=== PATIENT | female | born 1935 | race Caucasian/White ===

== ENCOUNTER 2017-10-08 16:49 | Inpatient (IN) | payer MEDICARE ==
--- OUTSIDE RECORDS SUMMARY | 2017-10-08 17:09 | XMS REPORT ---
:1935 External Reference #:[id number] Author Organization [facility] Address [address] [place] [address] Phone [phone] Care Team Providers Name Role Phone Liz Rollins M.D. Primary Care Physician Unavailable Payers Type Date Identification Numbers Payment Provider Subscriber Commercial Effective: Policy Number: [id number] Selvin Faulkner 2007 Expires: 2009 Group Number: [id number] [address] Group Name: [employer] [address] PayID: [id number] Medigap Part B Effective: 2009 Policy Number: [id number] Selvin Faulkner Expires: 2010 Group Name: [employer] [address] PayID: [id number] [place] [address] Commercial Effective: 2014 Policy Number: [employer] Alana Faulkner [id number] PayID: [id number] [address] [place] [address] Problems Date Description Provider Status Onset: 11/30/2015 Osteoporosis Tiburcio Rahman M.D. 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 Reaction- Also Not Tolerant Of Percocet, Darvocet,Sukhdeep 05/25/2012 Sulfa eye drops caused active severe pain redness, swelling, contact derm Medications Medication Date Status Form Strength Qnty SIG Indications Ordering Provider Orthotics 10/07 Active 1pair use as Liz directed P. bilaterally- Blegen, dx- pes Robb.DKate planus, pain in feet b Compression 10/07 Active 1Pair thigh high- I83.819 Liz Socks for varicose P. veins Milton Rollins Doxycycline 09/18 Active Capsules 100mg 14cap 1 PO bid X 1 Liz Hyclate s more Week For P. Lyme Disease Blegen, as Directed MAsya Tramadol HCL 09/18 Active Tablets 50mg 10tab take 1/2-1 s tablet up to P. twice per day Blegen, as needed for M.D. severe pain, can cause drowsiness Walker 10/15 Active 1unit walker with M25.561 Liz s wheels and P. seat- severe Blegen, osteoarthriti M.DKate s, knee pain Aspirin 08/21 Active Chewtabs 81mg 1 by mouth every day Georgie Rollins M.D. Vitamin D-3 05/11 Active Capsules 1000Unit decrease to 1000 Iu per P. day Milton Rollins Nutritional 05/11 Active powder Liz Georgie Rollins M.D. Ibandronate Active Tablets 150mg 1 by mouth Lacho Desai Sodium /0000 every month as directed for osteoporosis- do not eat or drink or lie down for 60 minutes after taking Ciprofloxacin 11/18 Hx Tablets 250mg 10tab 1 by mouth 599.0 [place] HCL s twice a day [place] - for 5 days III, 03/04 for uti MICROFILM OPERATOR-C Alendronate 10/15 Hx Tablets 70mg 4tabs take one Liz Sodium tablet by P. - mouth once a Blegen, 10/15 week on empty M.D. /2016 stomach do not lie down or eat or take meds for -60 min Gabapentin 09/27 Hx Capsules 100mg 30cap take 1 to 3 G25.81 s capsules by P. - mouth at Blegen, 03/05 bedtime as .D. needed for pain and restless legs Zostavax 09/27 Hx Solution 40035Kas/ 1unit shingles Z00.01 Rec 0.65ML s vaccine as P. - directed Blegen, 03/04 M.D. Tramadol HCL 04/15 Hx Tablets 50mg 20tab take 1/2-1 Shawnt s tablet up to RKate Young, - twice per day MICROFILM OPERATOR-C 03/05 as needed for /2016 severe pain, can cause drowsiness Lidocaine 04/13 Hx Patches 5% 1unit apply patch s to neck for P. - pain as Blegen, 09/27 directed, august.D. use up to every 12 hours Tizanidine HCL 04/12 Hx Tablets 2mg 14tab 1 PO QHS prn s Muscle Spasm P. - Blegen, 04/15.D. Aspirin 03/16 Hx Tablets 325mg 1 PO qd ( Started After P. - CVA) Blegen, 08/21 M.D. Ciprofloxacin 11/04 Hx Tablets 250mg 10tab 1 by mouth 599.0 [facility] s twice a day P. - for 5 days Blegen, 03/09 for uti M.D. Cipro 05/16 Hx Tablets 250mg 10tab one by mouth s twice a day x P. - 5 days Blegen, 05/30 M.D. Compression 05/11 Hx 15-30mm 2Pair for varicose 729.5 Liz Stockings- Thigh /2014 HG s veings P. High - Blegen, 09/27 M.D. Fish Oil 05/11 Hx Capsules 1000mg 1-2 by mouth every day P. - Blegen, 03/28 M.D. /2014 Juice Plus 05/11 Hx Capsule fruit cap in am/ veggie P. - cap in pm Blegen, 10/15 M.D. Cyclobenzaprine 10/26 Hx Tablets 5mg 30tab 1 by mouth 724.5 Delia HCL s three times a Maribell, - day for MICROFILM OPERATOR-C 05/11 muscle spasm, may cause drowsiness Hydrocodone-Acet 10/26 Hx Tablets 5-325mg 10ten 1 by mouth q4 724.5 Delia aminophen - 6 hours as Maribell, - needed MICROFILM OPERATOR-C 05/11 Sulfacetamide 05/12 Hx Solution 10% 1bott 2 gtts both 372.03 Shawnti Sodium le eyes 4 times R. Storm, - daily for 5 MICROFILM OPERATOR-C Hydrocodone/Acet 03/19 Hx Tablets 5-325mg 15fif 1 po q 6 hrs Delia aminophen teen prn pain Maribell, - MICROFILM OPERATOR-C 05/11 Tramadol HCL 03/08 Hx Tablets 50mg 30thi 1 po q4-6hr Shawnti rty prn severe R. Storm, - pain MICROFILM OPERATOR-C 05/11 Nystatin/Triamci 07/29 Hx Cream 129414-4. 30gm apply to rash 112.9 Delia nolone 1Unit/GM- on chest bid Maribell, - % for up to 3 MICROFILM OPERATOR-C Quad Cane 09/21 Hx Use as Liz Directed For P. - Back And Leg Blegen, 01/09 Pain- DX- M.D. 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 - Back And Leg Blegen, 01/09 Pain- DX- M.D. 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 /2009 Physical Therapy 08/26 Hx Eval And Liz Treat Low P. 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 10/21 Darvocet-N 50 03/01 Hx Tablets 50-325mg 30tab 1 po q 6 s hours prn P. - severe pain Blegen, 08/16 M.D. Cipro 09/08 Hx Tablets 250mg 20tab one po bid x s 10 days P. - Blegen, 03/03 M.D. Cipro 05/07 Hx Tablets 250mg 6tabs 1 pill po bid 599.0 Shawnti /2008 for 3 days Meggan Young, - for urine MICROFILM OPERATOR-C 08/18 infection Ciprofloxacin 10/05 Hx Tablets 250mg 20tab one po bid 599.0 Shawnti HCL s for 10 days Meggan Young, - for infection MICROFILM OPERATOR-C 03/29 Asmanex 30 04/22 Hx Aerosol 220mcg/In 1unit 1 puff qd x 2 Liz Metered Doses /2007 h s weeks - up to P. - 4 weeks- Blegen, 08/16 rinse mouth M.D. after Levaquin 03/14 Hx Tablets 250mg 7tabs One PO qd X 7 Days P. - Blegen, 10/05 M.D. Zithromax Z-David 03/12 Hx Tablets 250mg 6tabs two po qd today and P. - then one po Blegen, 03/14 qd for 4 days M.D. /2006 Erythromycin 03/12 Hx Ointment 0.5% 1Tube apply tid x 7 Ophthalmic days to P. Ointment - affected eye Blegen, 10/05 M.D. Xanax 03/05 Hx Tablets 0.25mg 10tab one-half to s one po qhs P. - prn restless Blegen, 08/16 legs, can M.D. take up to two at bedtime if needed Orthotics 10/30 Hx Pair 1unit evaluate for s orthotics for P. - foot pain/ Blegen, 01/09 arthritis M.D. /2009 Entex LA 08/03 Hx Tablets 600mg;30 30tab 1 PO bid 465.9 Tiburcio /2004 mg s Rahman, - M.D. 11/01 Ultram 09/21 Hx Tablets 50mg 20tab One To Two PO s bid prn P. - Severe Pain Blegen, 01/09 M.D. /2009 Percocet 09/16 Hx Tablets 5/325 mg 30tab 1/2 To One s QHS prn Pain, P. - Up To Q 6 HRS Blegen, 09/21 prn M.D. Fosamax 12/18 Hx Tablets 70mg 4tabs One Q Week On Empty P. - Stomach, DO Blegen, 03/02 Not Lay M.D. /2008 Down After Taking Cipro 10/30 Hx Tablets 250mg 20tab One bid X10 s Days P. - Blegen, 06/17 M.D. /2002 Fluocinonide 06/17 Hx 15Gra Use Twice m Daily For P. - Rash For 1-2 Blegen, 08/16 Weeks M.D. /2011 Vioxx 06/17 Hx Tablets 25mg 30tab One qd 715.90 s P. - Blegen, 02/27 M.D. /2005 715.00 Reclast - Hx Solution 5mg/100ML once yearly dx Unknown 09/16/2017 osteoporosis m81.1 Forteo - Hx Solution 600mcg/2.4ML Inject 20 mcg SQ M81.0 Lacho Desai MD 09/16/2017 Once Per Day For Osteoporosis Immunizations CPT Code Status Date Vaccine Lot # [id number] Given 01/16/2017 Influenza Virus Vaccine, Quadrivalent, 3 Yr > Quad, Preserv Free 20723 Given 03/05/2016 Influenza Vaccine High Dose PF [id number] 75697 Given 09/28/2015 Prevnar-13 Pneumococcal Conjugate Vaccine [id number] 33657 Given 03/17/2010 Influenza Vaccine-Preservative Free 3 Yrs And [id number] Above 56362 Given 11/02/2009 DT (Adult) [id number] 00243 Given 02/26/2006 Influenza Virus Vaccine, 3 Yrs And Above [id number] 02829 Given 03/05/2005 Influenza Virus Vaccine, 3 Yrs And Above [id number] 73980 Given 03/01/2004 Influenza Virus Vaccine, 3 Yrs And Above 42141 Given 03/30/2003 Influenza Virus Vaccine, 3 Yrs And Above 94562 Given 03/30/2003 Pneumovax 23 (PPSV23) 65+ years or high risk 2 to 64 year old 75867 Given 02/17/2002 Influenza Virus Vaccine, 3 Yrs And Above 71793 Given 02/06/2001 Influenza Virus Vaccine, 3 Yrs And Above 26250 Given 02/01/1999 Influenza Virus Vaccine, 3 Yrs And Above 39392 Given 01/28/1997 Pneumovax 23 (PPSV23) 65+ years or high risk 2 to 64 year old 32148 Given 01/28/1997 Influenza Virus Vaccine 62836 Given 09/06/1994 DT (Adult) 61241 Given 05/30/1992 DT (Adult) Vital Signs Date Vital Result Comment 10/07/2017 Weight 136.00 lb Weight in kg's 61.690 BP Systolic 120 mmHg BP Diastolic 70 mmHg Heart Rate 80 /min Body Temperature 97.0 F Respiratory Rate 16 /min Height 63.5 inches 5'3.50" BMI (Body Mass Index) 23.7 kg/m2 O2 % BldC Oximetry 97 % 09/16/2017 Weight 138.00 lb Weight in kg's 62.597 BP Systolic 123 mmHg BP Diastolic 77 mmHg Heart Rate 84 /min Body Temperature 98.2 F O2 % BldC Oximetry 95 % 03/05/2017 Weight 135.00 lb Weight in kg's 61.236 BP Systolic 110 mmHg BP Diastolic 72 mmHg Heart Rate 85 /min Body Temperature 97.7 F O2 % BldC Oximetry 98 % 10/15/2016 Weight 138.00 lb Weight in kg's 62.597 BP Systolic 112 mmHg BP Diastolic 76 mmHg Heart Rate 71 /min Body Temperature 96.8 F Respiratory Rate 16 /min O2 % BldC Oximetry 98 % 03/05/2016 Weight 134.00 lb Weight in kg's 60.782 BP Systolic 120 mmHg BP Diastolic 74 mmHg Heart Rate 76 /min Body Temperature 97.6 F Respiratory Rate 12 /min 11/30/2015 Weight 131.00 lb Weight in kg's 59.422 BP Systolic 100 mmHg BP Diastolic 70 mmHg Heart Rate 60 /min Body Temperature 97.8 F Respiratory Rate 20 /min 09/28/2015 Weight 131.00 lb Weight in kg's 59.422 BP Systolic 118 mmHg BP Diastolic 68 mmHg Heart Rate 56 /min Body Temperature 96.9 F 2015 Weight 133.00 lb Weight in kg's 60.329 BP Systolic 112 mmHg BP Diastolic 56 mmHg Heart Rate 60 /min Body Temperature 98.3 F 04/12/2015 Weight 132.00 lb Weight in kg's 59.875 BP Systolic 116 mmHg BP Diastolic 66 mmHg Heart Rate 78 /min O2 % BldC Oximetry 98 % 03/28/2015 Weight 132.00 lb Weight in kg's 59.875 BP Systolic 102 mmHg BP Diastolic 64 mmHg Heart Rate 66 /min 03/16/2015 Weight 132.00 lb Weight in kg's 59.875 BP Systolic 120 mmHg BP Diastolic 70 mmHg Heart Rate 72 /min 11/04/2014 Weight 128.00 lb Weight in kg's 58.061 BP Systolic 100 mmHg BP Diastolic 56 mmHg Heart Rate 76 /min Body Temperature 99.4 F 05/11/2014 Weight 125.00 lb Weight in kg's 56.700 BP Systolic 100 mmHg BP Diastolic 60 mmHg Heart Rate 72 /min Height 63.5 inches 5'3.50" BMI (Body Mass Index) 21.8 kg/m2 10/26/2013 Weight 126.00 lb Weight in kg's 57.154 BP Systolic 120 mmHg BP Diastolic 70 mmHg Heart Rate 72 /min Body Temperature 97.5 F 05/14/2012 Weight 133.00 lb Weight in kg's 60.329 BP Systolic 112 mmHg BP Diastolic 68 mmHg Heart Rate 74 /min 05/12/2012 Weight 133.00 lb Weight in kg's 60.329 BP Systolic 120 mmHg BP Diastolic 64 mmHg Heart Rate 80 /min Body Temperature 98.3 F 03/07/2012 Weight 134.00 lb Weight in kg's 60.782 BP Systolic 104 mmHg BP Diastolic 68 mmHg Heart Rate 60 /min 08/17/2011 Weight 144.00 lb Weight in kg's 65.318 BP Systolic 100 mmHg BP Diastolic 60 mmHg Heart Rate 92 /min Height 64.5 inches 5'4.50" BMI (Body Mass Index) 24.3 kg/m2 07/30/2011 Weight 146.00 lb Weight in kg's 66.226 BP Systolic 100 mmHg BP Diastolic 70 mmHg Heart Rate 72 /min 05/25/2010 Weight 155.00 lb Weight in kg's 70.308 BP Systolic 116 mmHg BP Diastolic 64 mmHg Heart Rate 76 /min 11/02/2009 Weight 151.00 lb Weight in kg's 68.494 BP Systolic 122 mmHg BP Diastolic 70 mmHg Heart Rate 68 /min Height 64.25 inches 5'4.25" BMI (Body Mass Index) 25.7 kg/m2 09/19/2009 Weight 155.00 lb Weight in kg's 70.308 BP Systolic 130 mmHg BP Diastolic 78 mmHg Heart Rate 68 /min Body Temperature 97.1 F 08/02/2009 Weight 157.00 lb Weight in kg's 71.215 BP Systolic 132 mmHg BP Diastolic 70 mmHg Heart Rate 68 /min 07/30/2009 Weight 159.00 lb Weight in kg's 72.122 BP Systolic 140 mmHg BP Diastolic 78 mmHg Heart Rate 68 /min 06/07/2009 Weight 159.00 lb Weight in kg's 72.122 BP Systolic 120 mmHg BP Diastolic 70 mmHg Heart Rate 64 /min 03/01/2009 Weight 158.00 lb Weight in kg's 71.669 BP Systolic 110 mmHg BP Diastolic 76 mmHg Heart Rate 80 /min Body Temperature 98.1 F 09/08/2008 Weight 168.00 lb Weight in kg's 76.205 BP Systolic 120 mmHg BP Diastolic 78 mmHg Heart Rate 68 /min Body Temperature 96.8 F Respiratory Rate 18 /min 08/13/2008 Weight 187.00 lb Weight in kg's 84.823 BP Systolic 130 mmHg BP Diastolic 85 mmHg Heart Rate 64 /min Body Temperature 98.0 F 05/07/2008 Weight 167.00 lb Weight in kg's 75.751 BP Systolic 120 mmHg BP Diastolic 74 mmHg Heart Rate 72 /min Body Temperature 96.5 F oral 03/19/2008 Weight 166.00 lb Weight in kg's 75.298 BP Systolic 114 mmHg BP Diastolic 72 mmHg Heart Rate 68 /min Body Temperature 97.0 F Height 64.75 inches 5'4.75" BMI (Body Mass Index) 27.8 kg/m2 11/03/2007 Weight 167.00 lb Weight in kg's 75.751 BP Systolic 122 mmHg BP Diastolic 70 mmHg Heart Rate 62 /min Height 64.75 inches 5'4.75" BMI (Body Mass Index) 28.0 kg/m2 10/06/2007 Weight 168.00 lb Weight in kg's 76.205 BP Systolic 106 mmHg BP Diastolic 68 mmHg Heart Rate 72 /min Height 64.75 inches 5'4.75" BMI (Body Mass Index) 28.2 kg/m2 03/12/2007 Weight 165.00 lb Weight in kg's 74.844 BP Systolic 114 mmHg BP Diastolic 74 mmHg Heart Rate 76 /min Height 64.75 inches 5'4.75" BMI (Body Mass Index) 27.7 kg/m2 02/27/2006 Weight 165.00 lb Weight in kg's 74.844 BP Systolic 112 mmHg BP Diastolic 60 mmHg Body Temperature 98.0 F 06/29/2005 Weight 162.00 lb Weight in kg's 73.483 BP Systolic 130 mmHg BP Diastolic 80 mmHg Heart Rate 70 /min 03/05/2005 Weight 159.00 lb Weight in kg's 72.122 BP Systolic 130 mmHg BP Diastolic 70 mmHg Body Temperature 98.0 F 12/27/2004 Weight 160.00 lb Weight in kg's 72.576 BP Systolic 130 mmHg BP Diastolic 74 mmHg Heart Rate 60 /min Body Temperature 96.4 F Respiratory Rate 16 /min 10/16/2004 Weight 166.00 lb Weight in kg's 75.298 BP Systolic 138 mmHg BP Diastolic 80 mmHg Heart Rate 76 /min 08/03/2004 Weight 169.00 lb Weight in kg's 76.658 BP Systolic 140 mmHg BP Diastolic 100 mmHg Body Temperature 99.0 F 09/16/2002 Weight 188.00 lb Weight in kg's 85.277 BP Systolic 116 mmHg BP Diastolic 78 mmHg Heart Rate 76 /min Body Temperature 97.6 F 02/18/2002 Weight 186.50 lb Weight in kg's 84.6 BP Systolic 130 mmHg BP Diastolic 74 mmHg 12/18/2001 BP Systolic 112 mmHg BP Diastolic 70 mmHg 08/25/2001 Weight 195.00 lb BP Systolic 130 mmHg BP Diastolic 80 mmHg Heart Rate 76 /min Respiratory Rate 18 /min Height 65 inches BMI (Body Mass Index) 32.4 kg/m2 Results Test Date Test Result H/L Range Note CBC Auto Diff 10/07/2017 White Blood Count 4.3 10^3/uL 3.5-10.8 Red Blood Count 3.77 10^6/uL Low 4.00-5.40 Hemoglobin 11.7 g/dL Low 12.0-16.0 Hematocrit 35 % 35-47 Mean Corpuscular Volume 94 fL 80-97 Mean Corpuscular Hemoglobin 31 pg 27-31 Mean Corpuscular HGB Conc 33 g/dL 31-36 Red Cell Distribution Width 14 % 10.5-15 Platelet Count 198 10^3/uL 150-450 Mean Platelet Volume 10.8 um3 High 7.4-10.4 Abs Neutrophils 2.0 10^3/uL 1.5-7.7 Abs Lymphocytes 1.8 10^3/uL 1.0-4.8 Abs Monocytes 0.4 10^3/uL 0-0.8 Abs Eosinophils 0.1 10^3/uL 0-0.6 Abs Basophils 0.1 10^3/uL 0-0.2 Abs Nucleated RBC 0 10^3/uL Granulocyte % 46.7 % 38-83 Lymphocyte % 41.2 % 25-47 Monocyte % 9.1 % High 0-7 Eosinophil % 1.8 % 0-6 Basophil % 1.2 % 0-2 Nucleated Red Blood Cells % 0.2 Comp Metabolic Panel 10/07/2017 Sodium 139 mmol/L 135-145 Potassium 4.3 mmol/L 3.5-5.0 Chloride 106 mmol/L 101-111 Co2 Carbon Dioxide 27 mmol/L 22-32 Anion Gap 6 mmol/L 2-11 Glucose 100 mg/dL 70-100 Blood Urea Nitrogen 17 mg/dL 6-24 Creatinine 0.89 mg/dL 0.51-0.95 BUN/Creatinine Ratio 19.1 8-20 Calcium 9.9 mg/dL 8.6-10.3 Total Protein 6.4 g/dL 6.4-8.9 Albumin 3.6 g/dL 3.2-5.2 Globulin 2.8 g/dL 2-4 Albumin/Globulin Ratio 1.3 1-3 Total Bilirubin 0.40 mg/dL 0.2-1.0 Alkaline Phosphatase 60 U/L 34-104 Alt 17 U/L 7-52 Ast 21 U/L 13-39 Egfr Non- 60.7 >60 Egfr 73.5 >60 1 Laboratory test finding 10/07/2017 Vitamin B12 600 pg/mL 180-914 2 Vitamin D Total 25(Oh) 53.4 ng/mL High 20-50 3 Lyme Western Blot 09/24/2017 Lyme Disease IgG Ab WB Positive Negative Lyme Disease IgG Bands Present See Comment kDa 4 Lyme Disease IgM Ab WB Positive Negative Lyme Disease IgM Bands Present p41,p23 kDa Lyme Disease Interpretation See Comment 5 Laboratory test finding 09/16/2017 Lyme Disease Serology Negative Negative 6 Comp Metabolic Panel 09/16/2017 Sodium 134 mmol/L Low 139-145 Potassium 4.3 mmol/L 3.5-5.0 Chloride 100 mmol/L Low 101-111 Co2 Carbon Dioxide 27 mmol/L 22-32 Anion Gap 7 mmol/L 2-11 Glucose 104 mg/dL High 70-100 Blood Urea Nitrogen 13 mg/dL 6-24 Creatinine 0.93 mg/dL 0.51-0.95 BUN/Creatinine Ratio 14.0 8-20 Calcium 9.5 mg/dL 8.6-10.3 Total Protein 6.8 g/dL 6.4-8.9 Albumin 3.9 g/dL 3.2-5.2 Globulin 2.9 g/dL 2-4 Albumin/Globulin Ratio 1.3 1-3 Total Bilirubin 0.40 mg/dL 0.2-1.0 Alkaline Phosphatase 67 U/L 34-104 Alt 47 U/L 7-52 Ast 65 U/L High 13-39 Egfr Non- 57.7 >60 Egfr 74.2 >60 7 CBC Auto Diff 09/16/2017 White Blood Count 2.7 10^3/uL Low 3.5-10.8 Red Blood Count 4.21 10^6/uL 4.00-5.40 Hemoglobin 13.0 g/dL 12.0-16.0 Hematocrit 40 % 35-47 Mean Corpuscular Volume 94 fL 80-97 Mean Corpuscular Hemoglobin 31 pg 27-31 Mean Corpuscular HGB Conc 33 g/dL 31-36 Red Cell Distribution Width 14 % 10.5-15 Platelet Count 148 10^3/uL Low 150-450 Mean Platelet Volume 10.2 um3 7.4-10.4 Abs Neutrophils 2.0 10^3/uL 1.5-7.7 Abs Lymphocytes 0.6 10^3/uL Low 1.0-4.8 Abs Monocytes 0.2 10^3/uL 0-0.8 Abs Eosinophils 0 10^3/uL 0-0.6 Abs Basophils 0 10^3/uL 0-0.2 Abs Nucleated RBC 0 10^3/uL Granulocyte % 72.1 % 38-83 Lymphocyte % 20.7 % Low 25-47 Monocyte % 6.2 % 0-7 Eosinophil % 0 % 0-6 Basophil % 1.0 % 0-2 Nucleated Red Blood Cells % 0.1 Laboratory test finding 09/16/2017 C Reactive Protein 37.20 mg/L High < 5.00 8 Connective Tissue Panel 09/16/2017 Anti-Nuclear Antibody 0.4 U 9 Cyclic Citrullinated Peptide <15.6 U 10 Interpretation See Comment 11 Tick-Borne Panel PCR Blood 09/16/2017 Babesia microti PCR Negative Negative Babesia ducani Negative Negative Babesia divergens/Mo-1 Negative Negative 12 Anaplasma phagocytophilum Negative Negative Ehrlichia chaffeensis Negative Negative Ehrlichia ewingii/canis Negative Negative Ehrlichia muris-like Negative Negative 13 B. miyamotoi PCR, B Negative Negative 14 Laboratory test finding 01/16/2017 Calcium 9.9 mg/dL 8.6-10.3 Vitamin D Total 25(Oh) 53.2 ng/mL High 20-50 Pthi 01/16/2017 Calcium (PTH Intact) 9.9 mg/dL 8.6-10.3 PTH Intact 6.0 pmol/L 1.3-9.3 Laboratory test finding 01/16/2017 Creatinine Random Urine 56.86 mg/dL Osteocalcin 26 ng/mL 9 - 42 15 Bone Alkaline Phosphatase, S 17 g/L 16 NTX (N-Telopeptide) Urine 01/16/2017 Urine Creatinine 49 mg/dL NTX 257 nmol/L Ur NTX-Telo 59 nmol/mmol 17 Laboratory test finding 09/28/2015 Vitamin B12 734 pg/mL 180-914 18 Vitamin D Total 25(Oh) 59.0 ng/mL High 30-50 19 Comp Metabolic Panel 09/28/2015 Sodium 137 mmol/L 133-145 Potassium 4.2 mmol/L 3.5-5.0 Chloride 101 mmol/L 101-111 Co2 Carbon Dioxide 30 mmol/L 22-32 Anion Gap 6 mmol/L 2-11 Glucose 70 mg/dL 70-100 Blood Urea Nitrogen 15 mg/dL 6-24 Creatinine 0.82 mg/dL 0.51-0.95 BUN/Creatinine Ratio 18.3 8-20 Calcium 9.9 mg/dL 8.6-10.3 Total Protein 7.3 g/dL 6.4-8.9 Albumin 4.2 g/dL 3.2-5.2 Globulin 3.1 g/dL 2-4 Albumin/Globulin Ratio 1.4 1-3 Total Bilirubin 0.60 mg/dL 0.2-1.0 Alkaline Phosphatase 113 U/L High 34-104 Alt 16 U/L 7-52 Ast 24 U/L 13-39 Egfr Non- 67.1 >60 Egfr 86.3 >60 20 Urine DIP 09/28/2015 Leukocytes + Neg Urine Nitrites neg Neg Urobilinogen neg Norm Total Protein, Urine neg Neg Urine pH 5 5-6 Urine Blood neg Neg Urine Ketones neg Neg Urine Bilirubin neg Neg Urine Glucose norm Norm CBC Auto Diff 2015 White Blood Count 5.8 10^3/uL 3.5-10.8 Red Blood Count 4.06 10^6/uL 4.0-5.4 Hemoglobin 12.5 g/dL 12.0-16.0 Hematocrit 39 % 35-47 Mean Corpuscular Volume 95 fL 80-97 Mean Corpuscular Hemoglobin 31 pg 27-31 Mean Corpuscular HGB Conc 32 g/dL 31-36 Red Cell Distribution Width 13 % 10.5-15 Platelet Count 202 10^3/uL 150-450 Mean Platelet Volume 11 um3 High 7.4-10.4 Abs Neutrophils 3.4 10^3/uL 1.5-7.7 Abs Lymphocytes 1.8 10^3/uL 1.0-4.8 Abs Monocytes 0.4 10^3/uL 0-0.8 Abs Eosinophils 0.1 10^3/uL 0-0.6 Abs Basophils 0 10^3/uL 0-0.2 Abs Nucleated RBC 0 10^3/uL Granulocyte % 58.5 % 38-83 Lymphocyte % 31.3 % 25-47 Monocyte % 7.7 % 1-9 Eosinophil % 1.8 % 0-6 Basophil % 0.7 % 0-2 Nucleated Red Blood Cells % 0 Lyme Western Blot 2015 Lyme Disease IgG Ab WB Negative Negative Lyme Disease IgG Bands Present p41, p39, p23, kDa Lyme Disease IgM Ab WB Negative Negative Lyme Disease IgM Bands Present No bands detecte <SEE NOTE> kDa 21 Lyme Disease Interpretation See Comment 22 Laboratory test finding 2015 Erythrocyte Sed Rate 16 mm/Hr 0-40 23 CBC Auto Diff 03/09/2015 White Blood Count 5.4 10^3/uL 4.8-10.8 Red Blood Count 3.89 10^6/uL Low 4.0-5.4 Hemoglobin 12.5 g/dL 12.0-16.0 Hematocrit 38 % 35-47 Mean Corpuscular Volume 98 fL High 80-97 Mean Corpuscular Hemoglobin 32 pg High 27-31 Mean Corpuscular HGB Conc 33 g/dL 31-36 Red Cell Distribution Width 13 % 10.5-15 Platelet Count 187 10^3/uL 150-450 Mean Platelet Volume 10 um3 7.4-10.4 Abs Neutrophils 2.9 10^3/uL 1.5-7.7 Abs Lymphocytes 1.8 10^3/uL 1.0-4.8 Abs Monocytes 0.5 10^3/uL 0-0.8 Abs Eosinophils 0.1 10^3/uL 0-0.6 Abs Basophils 0.1 10^3/uL 0-0.2 Abs Nucleated RBC 0 10^3/uL Granulocyte % 54.2 % 38-83 Lymphocyte % 33.8 % 25-47 Monocyte % 8.5 % 1-9 Eosinophil % 2.3 % 0-6 Basophil % 1.2 % 0-2 Nucleated Red Blood Cells % 0.1 Comp Metabolic Panel 03/09/2015 Sodium 138 mmol/L 133-145 Potassium 4.0 mmol/L 3.5-5.0 Chloride 105 mmol/L 101-111 Co2 Carbon Dioxide 29 mmol/L 22-32 Anion Gap 4 mmol/L 2-11 Glucose 92 mg/dL 70-100 Blood Urea Nitrogen 16 mg/dL 6-24 Creatinine 0.83 mg/dL 0.51-0.95 BUN/Creatinine Ratio 19.3 8-20 Calcium 10.0 mg/dL 8.6-10.3 Total Protein 7.3 g/dL 6.4-8.9 Albumin 4.0 g/dL 3.2-5.2 Globulin 3.3 g/dL 2-4 Albumin/Globulin Ratio 1.2 1-3 Total Bilirubin 0.50 mg/dL 0.2-1.0 Alkaline Phosphatase 74 U/L 34-104 Alt 15 U/L 7-52 Ast 22 U/L 13-39 Egfr Non- 66.3 >60 Egfr 85.3 >60 24 Laboratory test finding 03/09/2015 Lactic Acid 0.8 mmol/L 0.5-2.2 Inr/Protime 03/09/2015 Inr 0.91 0.89-1.11 Urinalysis Profile 03/09/2015 Urine Color Yellow Urine Appearance Clear Urine Specific [place] 1.008 Low 1.010-1.030 Urine pH 6.0 5-9 Urine Urobilinogen Negative Negative Urine Ketones Negative Negative Urine Protein Negative Negative Urine Leukocytes Negative Negative Urine Blood Negative Negative Urine Nitrite Negative Negative Urine Bilirubin Negative Negative Urine Glucose Negative Negative Laboratory test finding 03/09/2015 Point of Care Glucose 92 mg/dL 74-106 25 Urine DIP 11/08/2014 Specific [place] 1.015 1.01-1.02 Urine pH 5 5-6 Leukocytes TRACE Neg Urine Nitrites NEG Neg Total Protein, Urine NEG Neg Urine Glucose NORM Norm Urine Ketones NEG Neg Urobilinogen NORM Norm Urine Bilirubin NEG Neg Urine Blood TRACE Neg Laboratory test finding 11/08/2014 Urine Culture And SEE RESULT BELOW 26 Sensitivities Urinalysis Profile 11/04/2014 Urine Color Straw Urine Appearance Clear Urine Specific [place] 1.004 Low 1.010-1.030 Urine pH 7.0 5-9 Urine Urobilinogen Negative Negative Urine Ketones Negative Negative Urine Protein Negative Negative Urine Leukocytes Negative Negative Urine Blood Negative Negative Urine Nitrite Negative Negative Urine Bilirubin Negative Negative Urine Glucose Negative Negative Laboratory test 11/04/2014 Urine Culture And SEE RESULT 27 finding Sensitivities BELOW Urine DIP 11/04/2014 Specific [place] 1.005 Low 1.01-1.02 Urine pH 6 5-6 Leukocytes TRACE Neg Urine Nitrites NEG Neg Total Protein, Urine NORM Neg Urine Glucose NORM Norm Urine Ketones NEG Neg Urobilinogen NORM Norm Urine Bilirubin NEG Neg Urine Blood TRACE Neg Laboratory test finding 06/15/2014 Alp Bone Isoenzymes 20 g/L 28 N Telopeptide Serum 22.7 nMBCE 29 Protein Electrophoresis 06/15/2014 Total Protein(Pep) 7.3 g/dL 6.3 - 7.9 Albumin 3.6 g/dL 3.4-4.7 Alpha-1 Globulin 0.2 g/dL 0.1-0.3 Alpha-2 Globulin 1.1 g/dL 0.6-1.0 Beta Globulin 0.9 g/dL 0.7-1.2 Gamma Globulin 1.6 g/dL 0.6-1.6 Albumin/Globulin Ratio 0.95 Impression See Comment 30 Pthi 06/15/2014 PTH Intact 4.7 pmol/L 1.3-9.3 Calcium (PTH Intact) 10.2 mg/dL 8.6-10.3 Laboratory test finding 06/15/2014 Osteocalcin 34 ng/mL 9 - 42 31 Folate > 20.00 ng/mL >3.99 Urinalysis Profile 06/15/2014 Urine Color Straw Urine Appearance Clear Urine Specific [place] 1.005 Low 1.010-1.030 Urine pH 7.0 5-9 Urine Urobilinogen Negative Negative Urine Ketones Negative Negative Urine Protein Negative Negative Urine Leukocytes Negative Negative Urine Blood Negative Negative Urine Nitrite Negative Negative Urine Bilirubin Negative Negative Urine Glucose Negative Negative Laboratory test finding 05/11/2014 TSH (Thyroid Stimulating 2.34 IU/mL 0.34-5.60 Horm) Free T4 0.86 ng/mL 0.61-1.12 Vitamin D, 25 Hydroxy 05/11/2014 25-Hydroxy Vitamin D2 <4.0 ng/mL 25-Hydroxy Vitamin D3 31 ng/mL 25-Hydroxy Vitamin D Total 31 ng/mL 32 Comp Metabolic Panel 05/11/2014 Sodium 137 mmol/L 133-145 Potassium 3.9 mmol/L 3.5-5.0 Chloride 102 mmol/L 101-111 Co2 Carbon Dioxide 30 mmol/L 22-32 Anion Gap 5 mmol/L 2-11 Glucose 82 mg/dL 70-100 Blood Urea Nitrogen 15 mg/dL 6-24 Creatinine 0.77 mg/dL 0.51-0.95 BUN/Creatinine Ratio 19.5 8-20 Calcium 10.1 mg/dL 8.6-10.3 Total Protein 7.1 g/dL 6.4-8.9 Albumin 4.3 g/dL 3.2-5.2 Globulin 2.8 g/dL 2-4 Albumin/Globulin Ratio 1.5 1-3 Total Bilirubin 0.50 mg/dL 0.2-1.0 Alkaline Phosphatase 71 U/L 34-104 Alt 13 U/L 7-52 Ast 21 U/L 13-39 Egfr Non- 72.5 >60 Egfr 93.2 >60 33 CBC Auto Diff 05/11/2014 White Blood Count 6.2 10^3/uL 4.8-10.8 Red Blood Count 3.92 10^6/uL Low 4.0-5.4 Hemoglobin 12.7 g/dL 12.0-16.0 Hematocrit 39 % 35-47 Mean Corpuscular Volume 99 fL High 80-97 Mean Corpuscular Hemoglobin 32 pg High 27-31 Mean Corpuscular HGB Conc 33 g/dL 31-36 Red Cell Distribution Width 14 % 10.5-15 Platelet Count 196 10^3/uL 150-450 Mean Platelet Volume 11 um3 High 7.4-10.4 Abs Neutrophils 3.6 10^3/uL 1.5-7.7 Abs Lymphocytes 2.0 10^3/uL 1.0-4.8 Abs Monocytes 0.4 10^3/uL 0-0.8 Abs Eosinophils 0.1 10^3/uL 0-0.6 Abs Basophils 0.1 10^3/uL 0-0.2 Abs Nucleated RBC 0 10^3/uL Granulocyte % 58.8 % 38-83 Lymphocyte % 31.6 % 25-47 Monocyte % 7.2 % 1-9 Eosinophil % 1.3 % 0-6 Basophil % 1.1 % 0-2 Nucleated Red Blood Cells % 0 Laboratory test finding 05/11/2014 Vitamin B12 762 pg/mL 180-914 34 Urinalysis Profile 05/11/2014 Urine Color Yellow Urine Appearance Cloudy Urine Specific [place] 1.008 Low 1.010-1.030 Urine pH 6.0 5-9 Urine Urobilinogen Negative Negative Urine Ketones Negative Negative Urine Protein Negative Negative Urine Leukocytes 3+ Negative Urine Blood Negative Negative Urine Nitrite Negative Negative Urine Bilirubin Negative Negative Urine Glucose Negative Negative Urine White Blood Cell 3+(>20/hpf) Absent Urine Red Blood Cell Trace(0-2/hpf) Absent Urine Bacteria 3+ Absent Urine Squamous Epithelial Cell Present Absent Urine Culture And 05/11/2014 Urine Culture (SEE NOTE) 35 Sensitivities Urine DIP 05/11/2014 Specific [place] 1.010 1.01-1.02 Urine pH 6 5-6 Leukocytes ++ Neg Urine Nitrites neg Neg Total Protein, Urine neg Neg Urine Glucose norm Norm Urine Ketones neg Neg Urobilinogen norm Norm Urine Bilirubin neg Neg Urine Blood trace Neg Urine DIP 10/27/2013 Specific [place] 1.01 1.01-1.02 Urine pH 6 5-6 Leukocytes ++ Neg Urine Nitrites NEG Neg Total Protein, Urine NEG Neg Urine Glucose NORM Norm Urine Ketones NEG Neg Urobilinogen NORM Norm Urine Bilirubin NEG Neg Urine Blood NEG Neg Urine DIP 08/17/2011 Leukocytes + Neg Urine Nitrites neg Neg Urine pH 5 5-6 Total Protein, Urine neg Neg Urine Glucose norm Norm Urine Ketones neg Neg Urobilinogen norm Norm Urine Bilirubin neg Neg Urine Blood neg Neg Specific [place] n/a Low 1.01-1.02 CBC Auto Diff 08/10/2011 White Blood Count 5.7 CUMM 4.8-10.8 Red Cell Count 3.76 CUMM Low 4.2-5.4 Hemoglobin 12.4 g/dL 12.0-16.0 Hematocrit 36 % 35-47 Mean Corpuscular Volume 97 um3 79-97 Mean Corpuscular Hemoglob 33 pg High 27-31 Mean Corpuscular HGB Cone 34 g/dL 32-36 Redcell Distribution WDTH 13 % 10.5-15 Platelet Count 199 CUMM 150-450 Mean Platelet Volume 11.3 um3 High 7.4-10.4 Gran % 48.9 % 38-83 Lymph % 37.6 % 25-47 Mononuclear % 10.1 % High 1-9 Eosinophil % 2.6 % 0-6 Basophil % 0.8 % 0-2 Abs Lymphs 2.1 1.0-4.8 Abs Mononuclear 0.6 0-0.8 Absolute Neutrophil Count 2.8 1.5-7.7 Abs Eosinophils 0.2 0-0.6 Abs Basophils 0 0-0.2 Comp Metabolic Panel 08/10/2011 Sodium 137 mmol/L 135-145 Potassium 4.0 mmol/L 3.5-5.0 Chloride 105 mmol/L 101-111 Co2 (Carbon Dioxide) 30.0 mmol/L 22-32 Anion Gap 2.0 mmol/L 2-11 36 Glucose 85 mg/dL 70-100 BUN 13 mg/dL 6-24 Creatinine 1.0 mg/dL 0.50-1.40 One Over Creatinine 1.00 BUN/Creatinine Ratio 13.0 8-20 Calcium 9.8 mg/dL 8.1-9.9 Total Protein 6.4 GM/DL 6.2-8.1 Albumin 3.7 GM/DL 3.2-5.2 Globulin 2.7 GM/DL 2-4 Albumin/Globulin Ratio 1.4 1-3 Bilirubin Total 1.0 mg/dL 0.4-1.5 37 Alkaline Phosphatase 83 U/L 30-110 Alt (SGPT) 18 U/L 14-54 Ast (Sgot) 23 U/L 12-42 eGFR Non- 54.1 > 60 eGFR 69.5 > 60 38 Lipid Profile (Trig/Chol/HDL) 08/10/2011 Triglyceride 47 mg/dL 40-200 Cholesterol 189 mg/dL Less Than 200 39 High Density Lipoprotein 74 mg/dL High 40-60 40 Cholesterol/HDL Ratio 2.55 AVERAGE 1-4.44 Low Density Lipoprotein 106 mg/dL High Less Than 100 41 Vitamin D, 25 Hydroxy 11/02/2009 25-Hydroxy Vitamin D2 <4.0 ng/mL () 25-Hydroxy Vitamin D3 57 ng/mL () 25-Hydroxy Vitamin D Total 57 ng/mL () 42 Laboratory test finding 11/02/2009 Vitamin B12 511 pg/mL 180-914 Varicella Zoster Igg Positive Negative 43 Erythrocyte Sed Rate 18 MM/HR 0-40 Urine DIP 11/02/2009 Leukocytes NEG Neg Urine Nitrites NEG Neg Urine pH 5 5-6 Total Protein, Urine NEG Neg Urine Glucose NORM Norm Urine Ketones NEG Neg Urobilinogen NORM Norm Urine Bilirubin NEG Neg Urine Blood NEG Neg Specific [place] NA Low 1.01-1.02 Urine Culture & Sensitivi 09/27/2009 Urine Culture Sensitivi SN1 44 Urine DIP 09/27/2009 Leukocytes + Neg Urine Nitrites NEG Neg Urine pH 5 5-6 Total Protein, Urine NEG Neg Urine Glucose NORM Norm Urine Ketones NEG Neg Urobilinogen NORM Norm Urine Bilirubin NEG Neg Urine Blood NEG Neg Specific [place] NA Low 1.01-1.02 Urine Culture & Sensitivi 09/19/2009 Urine Culture ESCHERICHIA COLI 45 Sensitivi Urine Culture 09/19/2009 Ampicillin <=2 Sensitivities Amikacin <=2 Ciprofloxacin <=0.25 Ceftriaxone <=1 Cefazolin <=4 Nitrofurantoin 32 Gentamicin <=1 Imipenem <=1 Levofloxacin <=0.12 Trimeth-Sulfa <=20 Ceftazidime <=1 Tigecycline <=0.5 Piperacillin/Tazobactam <=4 Urine DIP 09/19/2009 Leukocytes ++ Neg Urine Nitrites NEG Neg Urine pH 5 5-6 Total Protein, Urine NEG Neg Urine Glucose NORM Norm Urine Ketones NEG Neg Urobilinogen NORM Norm Urine Bilirubin NEG Neg Urine Blood 250 High Neg Specific [place] NEG Low 1.01-1.02 Laboratory test finding 08/02/2009 Urine Culture No growth. Urine DIP 08/02/2009 Leukocytes NEG Neg Urine Nitrites NEG Neg Urine pH 5 5-6 Total Protein, Urine NEG Neg Urine Glucose NORM Norm Urine Ketones NEG Neg Urobilinogen NORM Norm Urine Bilirubin NEG Neg Urine Blood NEG Neg Specific [place] NA Low 1.01-1.02 Laboratory test finding 07/30/2009 C Reactive Protein 1.6 mg/dL High Less Than 0.5 CBC With Electronic Diff 07/30/2009 White Blood Count 9.1 CUMM 4.8-10.8 Stat Red Cell Count 4.05 CUMM Low 4.2-5.4 Hemoglobin 12.7 g/dL 12.0-16.0 Hematocrit 38 % 35-47 Mean Corpuscular Volume 95 um3 79-97 Mean Corpuscular Hemoglob 31 pg 27-31 Mean Corpuscular HGB Cone 33 g/dL 32-36 Redcell Distribution WDTH 13 % 10.5-15 Platelet Count 238 CUMM 150-450 Mean Platelet Volume 9.4 um3 7.4-10.4 Gran % 66.1 % 38-83 Lymph % 24.5 % Low 25-47 Mononuclear % 7.6 % 1-9 Eosinophil % 1.4 % 0-6 Basophil % 0.4 % 0-2 Abs Lymphs 2.2 1.0-4.8 Abs Mononuclear 0.7 0-0.8 Absolute Neutrophil Count 6.0 1.5-7.7 Abs Eosinophils 0.1 0-0.6 Abs Basophils 0 0-0.2 Erythrocyte Sed Rate 07/30/2009 Erythrocyte Sed Rate 46 MM/HR High 0-40 Stat Laboratory test 07/30/2009 Rheumatoid Factor < 20.0 IU/mL Less Than 20 finding Cyclic Citrullinated Pep Igg <15.6 U () 46 Comp Metabolic Panel 07/28/2009 Sodium 140 mmol/L 135-145 Potassium 4.3 mmol/L 3.5-5.0 Chloride 106 mmol/L 101-111 Co2 (Carbon Dioxide) 28.0 mmol/L 22-32 Anion Gap 6.0 mmol/L 2-11 47 Glucose 90 mg/dL 70-100 48 BUN 16 mg/dL 6-24 Creatinine 0.80 mg/dL 0.50-1.40 One Over Creatinine 1.20 BUN/Creatinine Ratio 20.0 8-20 Calcium 9.9 mg/dL 8.1-9.9 49 Total Protein 6.9 GM/DL 6.2-8.1 Albumin 3.7 GM/DL 3.2-5.2 Globulin 3.2 GM/DL 2-4 Albumin/Globulin Ratio 1.2 1-3 Bilirubin Total 0.6 mg/dL 0.4-1.5 50 Alkaline Phosphatase 89 U/L 30-110 Alt (SGPT) 21 U/L 14-54 Ast (Sgot) 25 U/L 12-42 eGFR Non- 74.7 > 60 eGFR 90.4 > 60 51 PTH Intact, Inc Total Calcium 07/28/2009 PTH Intact 5.7 PMOL/L 1.3-9.3 52 Calcium For Pthi 9.9 mg/dL 8.1-9.9 53 Laboratory test finding 07/28/2009 TSH 3.30 MIU/ML 0.34-5.60 Vitamin D, 25 Hydroxy 07/28/2009 25-Hydroxy Vitamin D2 <4.0 ng/mL () 25-Hydroxy Vitamin D3 61 ng/mL () 25-Hydroxy Vitamin D Total 61 ng/mL () 54 Urine DIP 07/23/2009 Leukocytes 1++ High Neg Urine Nitrites POS Neg Urine pH 5 5-6 Total Protein, Urine NEG Neg Urine Glucose NORM Norm Urine Ketones NEG Neg Urobilinogen NORM Norm Urine Bilirubin NEG Neg Urine Blood 250 High Neg Specific [place] NA Low 1.01-1.02 Urine DIP 03/01/2009 Leukocytes NEG Neg Urine Nitrites NEG Neg Urine pH 5 5-6 Total Protein, Urine NEG Neg Urine Glucose NORM Norm Urine Ketones NEG Neg Urobilinogen NORM Norm Urine Bilirubin NEG Neg Urine Blood NEG Neg Specific [place] N/A Low 1.01-1.02 Urine DIP 09/08/2008 Leukocytes ++ Neg Urine Nitrites pos Neg Urine pH 5 5-6 Total Protein, Urine +++500 High Neg Urine Glucose norm Norm Urine Ketones neg Neg Urobilinogen norm Norm Urine Bilirubin neg Neg Urine Blood about 250 Neg Specific [place] n/a Low 1.01-1.02 Laboratory test finding 09/08/2008 Urine Culture Escherichia coli 55 GFR (Calculated) 09/08/2008 GFR (Calculated) 47 56 Basic Metabolic Panel 09/08/2008 Glucose 102 mg/dL High 70-100 BUN 20 mg/dL 5-32 Creatinine, Serum 1.2 mg/dL 0.6-1.4 Sodium 140 mmol/L 136-146 Potassium 4.3 mmol/L 3.5-5.3 Chloride 106 mmol/L 98-110 Carbon Dioxide 24 mmol/L 20-32 Calcium 9.9 mg/dL 8.4-10.4 CBC 09/08/2008 WBC 8.7 x103 4.3-10.9 RBC 4.11 x106 3.80-5.30 Hemoglobin 12.6 g/dL 11.8-15.8 Hematocrit 38.5 % 35.0-47.0 MCV 93.7 fl 82.0-98.0 MCH 30.7 pg 27.5-33.5 MCHC 32.7 g/dL 32.0-36.0 RDW 13.5 % 11.5-14.5 Platelet Count 279 x103 130-400 MPV 12.8 fl High 6.5-10.5 Segmented Neutrophils 64.4 % 44.0-74.0 Lymphocytes 26.1 % 15.0-45.0 Monocytes 7.2 % 2.0-13.0 Eosinophils 1.8 % 0.0-6.0 Basophils 0.5 % 0.0-2.0 Neutrophil Absolute 5.6 x103 1.4-7.0 Lymphocytes Absolute 2.3 x103 1.0-3.4 Monocyte Absolute 0.6 x103 0.2-1.0 Eosinophil Absolute 0.2 x103 0.0-0.5 Basophil Absolute 0.0 x103 0.0-0.2 Laboratory test 08/13/2008 Urine Culture ENTEROBACTERIACE <SEE 57 finding Sensitivi NOTE> Laboratory test 05/07/2008 Urine Culture ESCHERICHIA COLI finding Sensitivi Ast GN20 05/07/2008 Ampicillin >=32 Amikacin <=2 Ciprofloxacin <=0.25 Cefazolin <=4 Nitrofurantoin <=16 Gentamicin <=1 Imipenem <=1 Levofloxacin <=0.25 Meropenem <=0.25 Trimeth-Sulfa <=20 Ceftazidime <=1 Tigecycline <=0.5 Piperacillin/Tazobactam <=4 Urine DIP 05/07/2008 Leukocytes ++ Neg Urine Nitrites trace Neg Urine pH 5 5-6 Total Protein, Urine neg Neg Urine Glucose norm Norm Urine Ketones neg Neg Urobilinogen norm Norm Urine Bilirubin neg Neg Urine Blood 250 High Neg Specific [place] n/a Low 1.01-1.02 Laboratory test finding 03/19/2008 Urine Culture Escherichia coli 58 Urine DIP 03/19/2008 Leukocytes ++ Neg Urine Nitrites NEG Neg Urine pH 5 5-6 Total Protein, Urine NEG Neg Urine Glucose NORM Norm Urine Ketones NEG Neg Urobilinogen NORM Norm Urine Bilirubin NEG Neg Urine Blood NEG Neg Specific [place] NORM Low 1.01-1.02 Urine DIP 11/26/2007 Leukocytes NEG Neg Urine Nitrites NEG Neg Urine pH 5 5-6 Total Protein, Urine NEG Neg Urine Glucose NORM Norm Urine Ketones NEG Neg Urobilinogen NORM Norm Urine Bilirubin NEG Neg Urine Blood NEG Neg Specific [place] NA Low 1.01-1.02 Laboratory test finding 11/03/2007 Urine Culture Sensitivi NG 59 Urine DIP 11/03/2007 Leukocytes ++ Neg Urine Nitrites NEG Neg Urine pH 5 5-6 Total Protein, Urine NEG Neg Urine Glucose NORM Norm Urine Ketones NEG Neg Urobilinogen NORM Norm Urine Bilirubin NEG Neg Urine Blood ABOUT 250 Neg Specific [place] NORM Low 1.01-1.02 Laboratory test finding 10/06/2007 Urine Culture Escherichia coli 60 Urine DIP 10/06/2007 Leukocytes ++ Neg Urine Nitrites POS Neg Urine pH 5 5-6 Total Protein, Urine TRACE Neg Urine Glucose NORM Norm Urine Ketones NEG Neg Urobilinogen NORM Norm Urine Bilirubin NEG Neg Urine Blood ABOUT 250 Neg Specific [place] N/A Low 1.01-1.02 Hemoccult 05/30/2007 Stool-Occult Blood #1 NEG Neg Stool-Occult Blood #2 NEG Neg Stool-Occult Blood #3 NEG Neg Urine Culture And Sensitivites 05/29/2007 Urine Culture Sensitivi NG 61 Urine DIP 05/29/2007 Leukocytes NEG Neg Urine Nitrites NEG Neg Urine pH 5 5-6 Total Protein, Urine NEG Neg Urine Glucose NORM Norm Urine Ketones NEG Neg Urobilinogen NORM Norm Urine Bilirubin NEG Neg Urine Blood NEG Neg Specific [place] NORM Low 1.01-1.02 Laboratory test finding 04/28/2007 Urine Culture Enterococcus spe <SEE NOTE > 62 Gram Positive Sensitivity 04/24/2007 Ampicillin <=2 Ciprofloxacin <=0.5 Nitrofurantoin <=16 High Level Streptomycin SYN-S Levofloxacin 1 Penicillin 4 Tetracycline >=16 Vancomycin <=1 Urine DIP 04/22/2007 Leukocytes TRACE Neg Urine Nitrites NEG Neg Urine pH 5-6 5-6 Total Protein, Urine NEG Neg Urine Glucose NORM Norm Urine Ketones NEG Neg Urobilinogen NORM Norm Urine Bilirubin NEG Neg Urine Blood NEG Neg Specific [place] NA/ Low 1.01-1.02 Urine Culture And 04/22/2007 Urine Culture MODERATE [GROUP 63 Sensitivites Sensitivi <SEE NOTE> Urine DIP 03/12/2007 Leukocytes 1+ High Neg Urine Nitrites NEG Neg Urine pH 5 5-6 Total Protein, Urine NEG Neg Urine Glucose NORM Norm Urine Ketones NEG Neg Urobilinogen NORM Norm Urine Bilirubin NEG Neg Urine Blood NEG Neg Specific [place] NA Low 1.01-1.02 Gram Neg [place] Sensitivity 03/12/2007 Ampicillin <=2 Amikacin <=2 Ciprofloxacin <=0.25 Cefazolin <=4 Gentamicin <=1 Levofloxacin <=0.25 Meropenem <=0.25 Trimeth-Sulfa <=20 Tigecylcine <=0.5 Piperacillin/Tazobactam <=4 Urine Culture And 03/12/2007 Urine Culture MANY [ESCHERICHI 64 Sensitivites Sensitivi <SEE NOTE> Laboratory test 03/12/2007 Vitamin B12 404 pg/mL 180-914 finding Comp Metabolic Panel 03/12/2007 One Over Creatinine 0.90 Anion Gap 10.0 mmol/L 2-11 65 Albumin/Globulin Ratio 1.1 1-3 Albumin 3.9 GM/DL 3.2-5.2 Alkaline Phosphatase 101 U/L 30-110 Alt (SGPT) 23 U/L 14-54 Ast (Sgot) 24 U/L 12-42 BUN 14 mg/dL 6-24 Calcium 10.1 mg/dL 8.7-10.2 Chloride 99 mmol/L Low 101-111 Co2 (Carbon Dioxide) 29.0 mmol/L 22-32 Globulin 3.4 GM/DL 2-4 Glucose 81 mg/dL 70-105 Potassium 4.1 mmol/L 3.5-5.0 Sodium 138 mmol/L 135-145 Bilirubin Total 0.7 mg/dL 0.4-1.5 Total Protein 7.3 GM/DL 6.2-8.1 BUN/Creatinine Ratio 12.7 8-20 Creatinine 1.1 mg/dL 0.5-1.4 CBC With Electronic Diff 03/12/2007 White Blood Count 11.1 CUMM High 4.8- 10.8 Abs Basophils 0 0-0.2 Abs Eosinophils 0.3 0-0.6 Absolute Neutrophil Count 7.9 High 1.5-7.7 Abs Lymphs 2.0 1.0-4.8 Abs Mononuclear 0.8 0-0.8 Basophil % 0.4 % 0-2 Hematocrit 41 % 35-47 Hemoglobin 13.4 g/dL 12.0-16.0 Eosinophil % 2.3 % 0-6 Gran % 71.8 % 38-83 Lymph % 18.0 % Low 20-45 Mean Corpuscular HGB Cone 33 g/dL 32-36 Mean Corpuscular Hemoglob 31 pg 27-31 Mean Corpuscular Volume 95 um3 79-97 Mean Platelet Volume 10.8 um3 High 7.4-10.4 Mononuclear % 7.5 % 1-9 Platelet Count 299 CUMM 150-450 Red Cell Count 4.27 CUMM 4.2-5.4 Redcell Distribution WDTH 13 % 10.5-15 Urine DIP 02/27/2006 Leukocytes NEG Neg Urine Nitrites NEG Neg Urine pH 5 5-6 Total Protein, Urine NEG Neg Urine Glucose NORM Norm Urine Ketones NEG Neg Urobilinogen NORM Norm Urine Bilirubin NEG Neg Urine Blood NEG Neg Specific [place] NA Low 1.01-1.02 Lipid Profile (Trig/Chol/HDL) 02/26/2006 Cholesterol 194 mg/dL Less Than 200 66 Triglyceride 48 mg/dL 40-200 High Density Lipoprotein 64 mg/dL High 40-60 67 Low Density Lipoprotein 120 mg/dL High Less Than 100 68 Cholesterol/HDL Ratio 3.03 AVERAGE 1-4.44 Comp Metabolic Panel 02/26/2006 One Over Creatinine 1.00 Anion Gap 6.0 mmol/L 2-11 69 Albumin/Globulin Ratio 1.3 1-3 Albumin 3.9 GM/DL 3.2-5.2 Alkaline Phosphatase 87 U/L 30-110 Alt (SGPT) 16 U/L 14-54 Ast (Sgot) 21 U/L 12-42 BUN 18 mg/dL 6-24 Calcium 9.9 mg/dL 8.7-10.2 Chloride 105 mmol/L 101-111 Co2 (Carbon Dioxide) 28.0 mmol/L 22-32 Globulin 3.0 GM/DL 2-4 Glucose 88 mg/dL 70-105 Potassium 4.4 mmol/L 3.5-5.0 Sodium 139 mmol/L 135-145 Bilirubin Total 0.7 mg/dL 0.4-1.5 Total Protein 6.9 GM/DL 6.2-8.1 BUN/Creatinine Ratio 18.0 8-20 Creatinine 1.0 mg/dL 0.5-1.4 Comp Metabolic Panel 03/05/2005 Albumin 3.6 GM/DL 3.2-5.2 70 Alt (SGPT) 22 U/L 14-54 70 Calcium 10.2 mg/dL 8.7-10.2 70 Co2 (Carbon Dioxide) 29.0 mmol/L 22-32 70 Chloride 106 mmol/L 101-111 70 Creatinine .8 .5-1.4 70 Glucose 101 mg/dL 70-105 70 Alkaline Phosphatase 97 U/L 30-110 70 Potassium 4.6 mmol/L 3.5-5.0 70 Total Protein 6.7 GM/DL 6.2-8.1 70 Sodium 140 mmol/L 135-145 70 Ast (Sgot) 21 U/L 12-42 70 BUN 16 mg/dL 6-24 70 Bilirubin Total 0.4 mg/dL 0.4-1.5 70 One Over Creatinine 1.25 70 Anion Gap 5.0 mmol/L 2-11 70, 71 Albumin/Globulin Ratio 1.2 1-3 70 Globulin 3.1 GM/DL 2-4 70 BUN/Creatinine Ratio 20.0 8-20 70 Creatinine 0.8 mg/dL 0.5-1.4 70 Laboratory test finding 03/05/2005 Ferritin 98 NG/ML 11.0-307 70 Iron Total 59 g/dL 28-170 70 TSH 1.79 MIU/ML 0.34-5.60 70 Magnesium 2.5 mg/dL 1.7-2.6 70 Vitamin B12 280 pg/mL 180-914 70 Folic Acid > 20.0 NG/ML High 2.2-18.3 70 Hemoglobin 03/05/2005 Hematocrit 36 % 35-47 70 Hemoglobin 12.0 g/dL 12.0-16.0 70 Laboratory test finding 03/05/2005 Free Thyroxine 0.78 ng/dL 0.58-1.64 70 Urine DIP 12/27/2004 Leukocytes NEG Neg Urine Nitrites NEG Neg Urine pH 5 5-6 Total Protein, Urine NL Neg Urine Glucose NL Norm Urine Ketones NL Neg Urobolinogen NL Norm Urine Bilirubin NL Neg Urine Blood NL Neg Specific [place] N/A Low 1.01-1.02 Laboratory test finding 10/13/2002 Pathology Report [facility]S CYST Xray 09/17/2002 Knee, 3 Views, RT SEE TRIAGE 11/26/03 [id number] 11/22/2001 Red Blood Count 3.98 CUMM Low 4.2-5.4 MCH (Corpuscular Hemoglobin) 32 pg High 27-31 Monocytes 9.2 High 2.0-13.0 Comp Met Panel/Lipid [facility] 11/22/2001 LDL.Calculated 115 mg/dL High <100 Laboratory test finding 10/20/2001 Urine Culture FINAL 72 Gram Negative Susc. Panel FINAL Gni Panel FINAL Urine DIP 10/20/2001 Leukocytes + Neg Urine Nitrites NEG Neg Urine pH 5 5-6 Total Protein, Urine NEG Neg Urine Glucose NORM Norm Urine Ketones NGE Neg Urobolinogen NORM Norm Urine Bilirubin NEG Neg Urine Blood NEG Neg Specific [place] NA Low 1.01-1.02 Laboratory test finding 08/25/2001 Urine Culture FINAL 73 Gram Negative Susc. Panel FINAL Gni Panel FINAL Urine DIP 08/25/2001 Leukocytes NEG' Neg Urine Nitrites POSITIVE Neg Urine pH 5 5-6 Total Protein, Urine NL Neg Urine Glucose NL Norm Urine Ketones NL Neg Urobolinogen NL Norm Urine Bilirubin NL Neg Urine Blood NL Neg Specific [place] N/A Low 1.01-1.02 1 Because ethnic data is not always readily available, this report includes an eGFR for both -Americans and non- Americans. The National Kidney Disease Education Program (NKDEP) does not endorse the use of the MDRD equation for patients that are not between the ages of 18 and 70, are , have extremes of body size, muscle mass, or nutritional status, or are non- or non-. According to the National Kidney Foundation, irrespective of diagnosis, the stage of the disease is based on the level of kidney function: Stage Description GFR(mL/min/1.73 m(2)) 1 Kidney damage with normal or decreased GFR 90 2 Kidney damage with mild decrease in GFR 60-89 3 Moderate decrease in GFR 30-59 4 Severe decrease in GFR 15-29 5 Kidney failure <15 (or dialysis) 2 Normal Range 180 to 914 Indeterminate Range 145 to 180 Deficient Range <145 3 [id number] RESULT: p66,p45,p41,p39,p23,p18 5 Consistent with active or previous infection for B. burgdorferi. IgM blot criteria is of diagnostic utility only during the first 4 weeks of early Lyme disease. ADDITIONAL INFORMATION CDC criteria require >=5 bands for IgG or >=2 bands for IgM for the Immunoblot to be considered positive. Bands (e.g.,p41) may be detected in patients without Lyme disease, and patterns not meeting the CDC criteria should be interpreted with caution. Immunoblot should be ordered only on specimens that are positive or equivocal by a FDA-licensed Lyme disease antibody screening test (e.g., EIA). Test Performed by: [place] [address] 6 No evidence of antibodies to B. burgdorferi detected. False negative results may occur in recently infected patients (<=2 weeks) due to low or undetectable antibody levels to B. burgdorferi. If recent exposure is suspected, a second sample should be collected and tested in 2-4 weeks. Test Performed by: [place] [address] 7 Because ethnic data is not always readily available, this report includes an eGFR for both -Americans and non- Americans. The National Kidney Disease Education Program (NKDEP) does not endorse the use of the MDRD equation for patients that are not between the ages of 18 and 70, are , have extremes of body size, muscle mass, or nutritional status, or are non- or non-. According to the National Kidney Foundation, irrespective of diagnosis, the stage of the disease is based on the level of kidney function: Stage Description GFR(mL/min/1.73 m(2)) 1 Kidney damage with normal or decreased GFR 90 2 Kidney damage with mild decrease in GFR 60-89 3 Moderate decrease in GFR 30-59 4 Severe decrease in GFR 15-29 5 Kidney failure <15 (or dialysis) 8 Acute inflammation: >10.00 9 REFERENCE VALUE <=1.0 (Negative) 10 REFERENCE VALUE <20.0 (Negative) 11 Tests for antibodies to dsDNA and ERICA antigens are not performed automatically unless the JELENA result is > or= 3.0 U. Studies performed at [facility] indicate that positive JELENA results <3.0 U are rarely accompanied by positive second order tests. Test Performed by: [facility] [employer] - [address] [address] 12 ADDITIONAL INFORMATION This test was developed and its performance characteristics determined by [facility] in a manner consistent with CLIA requirements. This test has not been cleared or approved by the U.S. Food and Drug Administration. 13 ADDITIONAL INFORMATION This test was developed and its performance characteristics determined by [facility] in a manner consistent with CLIA requirements. This test has not been cleared or approved by the U.S. Food and Drug Administration. 14 ADDITIONAL INFORMATION This test was developed and its performance characteristics determined by [facility] in a manner consistent with CLIA requirements. This test has not been cleared or approved by the U.S. Food and Drug Administration. Test Performed by: [facility] [employer] - [facility] [address] [place] [address] 15 Test Performed by: [facility] [employer] - [address] [place] [id number] REFERENCE VALUE <=14 (Premenopausal) <=22 (Postmenopausal) Test Performed by: [facility] [employer] [place] [address] 17 nmol/mmol=nmol Bone Collagen Equivalents/mmol Creatinine REFERENCE VALUE Premenopausal: 17-94 nmol/mmol Postmenopausal: 26-124 nmol/mmol Test Performed by: [facility] - [facility] [address] [place] [address] 18 Normal Range 180 to 914 Indeterminate Range 145 to 180 Deficient Range <145 19 [id number] 20 Because ethnic data is not always readily available, this report includes an eGFR for both -Americans and non- Americans. The National Kidney Disease Education Program (NKDEP) does not endorse the use of the MDRD equation for patients that are not between the ages of 18 and 70, are , have extremes of body size, muscle mass, or nutritional status, or are non- or non-. According to the National Kidney Foundation, irrespective of diagnosis, the stage of the disease is based on the level of kidney function: Stage Description GFR(mL/min/1.73 m(2)) 1 Kidney damage with normal or decreased GFR 90 2 Kidney damage with mild decrease in GFR 60-89 3 Moderate decrease in GFR 30-59 4 Severe decrease in GFR 15-29 5 Kidney failure <15 (or dialysis) 21 No bands detected 22 Specific serologic response to B. burgdorferi infection is not detected, but cannot rule out early infection during which low or undetectable antibody levels to B. burgdorferi may be present. If clinically indicated, a new serum specimen should be submitted in 7-14 days. ADDITIONAL INFORMATION CDC criteria require >=5 bands for IgG or >=2 bands for IgM for the Immunoblot to be considered positive. Bands (e.g.,p41) may be detected in patients without Lyme disease, and patterns not meeting the CDC criteria should be interpreted with caution. Immunoblot should be ordered only on specimens that are positive or equivocal by a FDA-licensed Lyme disease antibody screening test (e.g., EIA). Test Performed by: [facility] [address] [place] [address] Custom [employer] Operator: Wei Marquez II, M.D., Ph.D. 23 [id number] 24 Because ethnic data is not always readily available, this report includes an eGFR for both -Americans and non- Americans. The National Kidney Disease Education Program (NKDEP) does not endorse the use of the MDRD equation for patients that are not between the ages of 18 and 70, are , have extremes of body size, muscle mass, or nutritional status, or are non- or non-. According to the National Kidney Foundation, irrespective of diagnosis, the stage of the disease is based on the level of kidney function: Stage Description GFR(mL/min/1.73 m(2)) 1 Kidney damage with normal or decreased GFR 90 2 Kidney damage with mild decrease in GFR 60-89 3 Moderate decrease in GFR 30-59 4 Severe decrease in GFR 15-29 5 Kidney failure <15 (or dialysis) 25 Legal Billing Specialist: [id number] BRITTANY STARKEY 26 SEE RESULT BELOW Name: ALANA FAULKNER : [address]: Liz Rollins MD Acct: [id number] Unit: [id number] AGE: 79 Location: [facility] Re11/08/14 SEX: F Status: REG REF SPEC: [id number] AMBROSE: 11/08/14-[address] [place] [address] DR: Liz Rollins MD REQ: [id number] RECD: 11/08/14 STATUS: COMP _ SOURCE: URINE SPDESC: ORDERED: Urine Culture Procedure Result Verified Site Urine Culture Final 11/10/14- 1026 ML No Growth Day 2 (<1,000 CFU/mL) * ML - [facility] ([facility]) . END OF REPORT * ML=Testing performed at Main Lab DEPARTMENT OF PATHOLOGY, [address] [place] [address] Gino Adame M.D. Director [facility] # [id number] 27 SEE RESULT BELOW Name: ALANA FAULKNER : [address]: Liz Rollins MD Acct: [id number] Unit: [id number] AGE: 79 Location: [facility] Re11/04/14 SEX: F Status: REG REF SPEC: [id number] AMBROSE: 11/04/14-[address]: Liz Rollins MD REQ: [id number] RECD: 11/04/14 STATUS: COMP _ SOURCE: URINE SPDESC: ORDERED: Urine Culture Procedure Result Verified Site Urine Culture Final 11/07/14- 0804 ML Organism 1 STAPHYLOCOCCUS EPIDERMIDIS Henning Count >100,000 (Many) CFU/ML 1. STAPHYLOCOCCUS EPIDERMIDIS M.I.C. RX --------- ------ Penicillin >=0.5 R Gentamicin <=0.5 S Linezolid 1 S Nitrofurantoin <=16 S Oxacillin <=0.25 S * Quinupristin/Dalfopristin <=0.25 S Rifampin <=0.5 S Tetracycline 2 S Doxycycline - Deduced S * Minocycline - Deduced S Tigecycline <=0.12 S Vancomycin 2 S Imipenem-Deduced S * Ampicillin/Sulbactam-Deduced S Cefazolin-Deduced S * These antibiotics are not available in the [facility] Formulary Contact the Microbiology Department for any additional antibiotic reporting. * ML - MAIN LAB ([facility]) . END OF REPORT * ML=Testing performed at Main Lab DEPARTMENT OF PATHOLOGY, [address] [place] [address] Gino Adame M.D. Director [facility] # [id number] 28 REFERENCE VALUE <=14 (Premenopausal) <=22 (Postmenopausal) Test Performed by: [place] [address] Custom Feed [employer] Operator: Wei Marquez II, M.D., Ph.D. 29 INTERPRETIVE INFORMATION: N-Telopeptide, Cross-Linked, Serum Adult Male.......................5.4 - 24.2 nM BCE Premenopausal Adult Female.......6.2 - 19.0 nM BCE The target value for treated post-menopausal adult females is the same as the premenopausal reference interval. BCE=Bone Collagen Equivalent Test Performed by: [facility] [address] [place] [id number] RESULT: No apparent monoclonal protein on serum electrophoresis. Test Performed by: [facility] - [address] [address] Custom Feed Corn Operator: Wei Marquez II, M.D., Ph.D. 31 Test Performed by: [facility] - [address] [address] Custom Feed Corn Operator: Wei Marquez II, M.D., Ph.D. 32 REFERENCE VALUE 25-HYDROXY D TOTAL (D2+D3) Optimum levels in the healthy population are 20-50, patients with bone disease may benefit from higher levels within this range. Test Performed by: [facility] - [address] [address] Custom Feed Corn Operator: Gerardo Goodwin M.D. 33 Because ethnic data is not always readily available, this report includes an eGFR for both -Americans and non- Americans. The National Kidney Disease Education Program (NKDEP) does not endorse the use of the MDRD equation for patients that are not between the ages of 18 and 70, are , have extremes of body size, muscle mass, or nutritional status, or are non- or non-. According to the National Kidney Foundation, irrespective of diagnosis, the stage of the disease is based on the level of kidney function: Stage Description GFR(mL/min/1.73 m(2)) 1 Kidney damage with normal or decreased GFR 90 2 Kidney damage with mild decrease in GFR 60-89 3 Moderate decrease in GFR 30-59 4 Severe decrease in GFR 15-29 5 Kidney failure <15 (or dialysis) 34 Normal Range 180 to 914 Indeterminate Range 145 to 180 Deficient Range <145 35 RUN DATE: 05/14/14 [facility] LIVE PAGE 1 RUN TIME: [address] [place] [id number] Specimen Inquiry Name: ALANA FAULKNER : [address]: Liz Rollins MD Acct: [id number] Unit: [id number] AGE: 78 Location: [facility] Re05/11/14 SEX: F Status: REG REF SPEC: [id number] AMBROSE: 05/11/14-[address]: Liz Rollins MD REQ: [id number] RECD: 05/11/14 STATUS: COMP _ SOURCE: URINE SPDESC: ORDERED: Urine Culture QUERIES: Provider Requisition # [id number] Procedure Result Verified Site Urine Culture Final 05/14/14- 913 ML Organism 1 ESCHERICHIA COLI Henning Count 10-25,000 (Moderate) CFU/ML 1. ESCHERICHIA COLI M.I.C. RX --------- ------ Ampicillin >=32 R Cefazolin <=4 S Cefepime <=1 S Ceftriaxone <=1 S Ciprofloxacin <=0.25 S Gentamicin <=1 S Levofloxacin <=0.12 S Meropenem <=0.25 S Nitrofurantoin <=16 S Tetracycline <=1 S Pipercillin/Tazobactam <=4 S Trimethoprim/Sulfamethoxazole <=20 S Amoxicillin/Clavulanic Acid 4 S Aztreonam <=1 S Contact the Microbiology Department for any additional antibiotic reporting. END OF REPORT * ML=Testing performed at Main Lab DEPARTMENT OF PATHOLOGY, [address] [place] [address] Gino Adame M.D. Director [facility] # [id number] 36 Anion gap measurement may be of limited value in the presence of any alkalosis, especially in a combined acid base disorder. . 37 A metabolite of Naproxen, O-desmethylnaproxen, has been shown to interfere with the Jendrassik-Tanaina method for measuring total bilirubin. Samples from patients who have taken Naproxen have shown spurious elevation in total bilirubin levels. 38 Because ethnic data is not always readily available, this report includes an eGFR for both -Americans and non- Americans. The National Kidney Disease Education Program (NKDEP) does not endorse the use of the MDRD equation for patients that are not between the ages of 18 and 70, are , have extremes of body size, muscle mass, or nutritional status, or are non- or non-. According to the National Kidney Foundation, irrespective of diagnosis, the stage of the disease is based on the level of kidney function: Stage Description GFR(mL/min/1.73 m(2)) 1 Kidney damage with normal or decreased GFR 90 2 Kidney damage with mild decrease in GFR 60-89 3 Moderate decrease in GFR 30-59 4 Severe decrease in GFR 15-29 5 Kidney failure <15 (or dialysis) 39 CHOLESTEROL INTERPRETATION: Desirable: Less than 200 MG/DL Borderline-High Risk: 200-239 MG/DL High-Risk: 240 MG/DL and over 40 HDL INTERPRETATION: Undesirable: High Risk: Less than 40 MG/DL Desirable: Low Risk: Greater than 60 MG/DL 41 LDL INTERPRETATION: Low Risk Optimal Level: LDL Less than 100 MG/DL Near or Above Optimal: LDL 100-129 MG/DL Borderline High Risk: LDL 130-159 MG/DL High Risk: LDL 160-189 MG/DL Very High Risk: LDL Greater than 189 MG/DL 42 -- REFERENCE VALUE -- 25-HYDROXY D TOTAL (D2+D3) Optimum levels in the normal population are 25-80 Test Performed by: [facility] Dpt of Lab Med and Pathology [address] [place] [address] Custom Feed Corn Operator: Martell Adame III, M.D. 43 Test Performed by: [facility] Dpt of Lab Med and Pathology [address] [place] [address] Custom Feed Corn Operator: Martell Adame III, M.D. 44 SCANT NORMAL URETHRAL OR PERINEAL RHYS 45 75^50-75,000 ORGANISMS/ML (MANY)^CCU 46 -- REFERENCE VALUE -- <20.0 (Negative) 20.0-39.9 (Weak Positive) 40.0-59.9 (Positive) >=60.0 (Strong Positive) Test Performed by: [facility] Dpt of Lab Med and Pathology [address] [place] [address] Custom Feed Corn Operator: Martell Adame III, M.D. 47 Anion gap measurement may be of limited value in the presence of any alkalosis, especially in a combined acid base disorder. . 48 Note change in reference range as of 11/27/07. The change was based on recommendations from the [place] [employer]. 49 Please note change in reference range effective 07 . 50 A metabolite of Naproxen, O-desmethylnaproxen, has been shown to interfere with the Jenpoonamik-Tanaina method for measuring total bilirubin. Samples from patients who have taken Naproxen have shown spurious elevation in total bilirubin levels. 51 Because ethnic data is not always readily available, this report includes an eGFR for both -Americans and non- Americans. The National Kidney Disease Education Program (NKDEP) does not endorse the use of the MDRD equation for patients that are not between the ages of 18 and 70, are , have extremes of body size, muscle mass, or nutritional status, or are non- or non-. According to the National Kidney Foundation, irrespective of diagnosis, the stage of the disease is based on the level of kidney function: Stage Description GFR(mL/min/1.73 m(2)) 1 Kidney damage with normal or decreased GFR 90 2 Kidney damage with mild decrease in GFR 60-89 3 Moderate decrease in GFR 30-59 4 Severe decrease in GFR 15-29 5 Kidney failure <15 (or dialysis) 52 PLEASE NOTE CHANGE IN REFERENCE RANGE OF 04/15/06. 53 Please note change in reference range effective 08 . 54 -- REFERENCE VALUE -- 25-HYDROXY D TOTAL (D2+D3) Optimum levels in the normal population are 25-80 Test Performed by: [facility] Dpt of Lab Med and Pathology [address] [place] [address] Custom Feed Corn Operator: Martell Adame III, M.D. 55 >100,000 col/ml URINE CULTURE organism 1 Escherichia coli >100,000 col/ml Ertapenem <=0.5 mcg/mL Susceptible Ampicillin <=2 mcg/mL Susceptible Ampicillin/sulbactam <=2 mcg/mL Susceptible Cefazolin <=4 mcg/mL Susceptible Ciprofloxacin <=0.25 mcg/mL Susceptible Gentamicin <=1 mcg/mL Susceptible Levofloxacin <=0.25 mcg/mL Susceptible Nitrofurantoin 32 mcg/mL Susceptible Piperacillin/tazobactam <=4 mcg/mL Susceptible Trimethoprim/Sulfa <=20 mcg/mL Susceptible 56 mL/min/1.73m2 . Normal Function or Mild Renal Disease, if clinically at risk: >or=60 Moderately decreased: 30 - 59 Severely decreased: 15 - 29 Renal Failure: <15 . Please note that the MDRD equation requires an additional adjustment for -Americans (multiply the GFR result by 1.210). . Glomerular Filtration Rate (GFR) is estimated based on the MDRD equation, which assumes a steady state for creatinine (Elvira Int Med 139/2 137-149, 2002), as recommended by the National Kidney Disease Education Program in conjunction with the National Institutes of Health and the National Kidney Foundation. . Clinical conditions in which it may be necessary to measure GFR by using clearance methods include extremes of age and body size, severe malnutrition or obesity, diseases of skeletal muscle, paraplegia or quadriplegia, vegetarian diet, rapidly changing kidney function, and calculation of the dose of potentially toxic drugs that are excreted by the kidneys. 57 ENTEROBACTERIACEAE 58 20,000 col/ml URINE CULTURE organism 1 Escherichia coli 20,000 col/ml Ertapenem <=0.5 mcg/mL Susceptible Ampicillin <=2 mcg/mL Susceptible Ampicillin/sulbactam <=2 mcg/mL Susceptible Cefazolin <=4 mcg/mL Susceptible Ciprofloxacin <=0.25 mcg/mL Susceptible Gentamicin <=1 mcg/mL Susceptible Levofloxacin <=0.25 mcg/mL Susceptible Nitrofurantoin <=16 mcg/mL Susceptible Piperacillin/tazobactam <=4 mcg/mL Susceptible Trimethoprim/Sulfa 40 mcg/mL Susceptible 59 FINAL: NO GROWTH DAY 2 (<1,000 CFU/mL) 60 >100,000 col/ml URINE CULTURE organism 1 Escherichia coli >100,000 col/ml Ertapenem <=0.5 mcg/mL Susceptible Ampicillin <=2 mcg/mL Susceptible Ampicillin/sulbactam <=2 mcg/mL Susceptible Cefazolin <=4 mcg/mL Susceptible Ciprofloxacin <=0.25 mcg/mL Susceptible Gentamicin <=1 mcg/mL Susceptible Levofloxacin <=0.25 mcg/mL Susceptible Nitrofurantoin <=16 mcg/mL Susceptible Piperacillin/tazobactam <=4 mcg/mL Susceptible Trimethoprim/Sulfa <=20 mcg/mL Susceptible 61 FINAL: NO GROWTH DAY 2 (<1,000 CFU/mL) 62 Enterococcus species 30,000 col/ml URINE CULTURE Enterococcus species 30,000 col/ml 1 Nitrofurantoin <=16 mcg/mL Susceptible Penicillin-G 4 mcg/mL Susceptible Vancomycin <=1 mcg/mL Susceptible 63 MODERATE [GROUP D ENTEROCOCCUS] 50^25-50,000 ORGANISMS/ML (MODERATE)^CCU GROUP D ENTEROCOCCUS 64 MANY [ESCHERICHIA COLI] >100^>100,000 ORGANISMS/ML^CCU ESCHERICHIA COLI 65 Anion gap measurement may be of limited value in the presence of any alkalosis, especially in a combined acid base disorder. . 66 Classification: Desirable . 67 Classification: High . 68 CALCULATED LDL APPROXIMATES THE VALUE OF A DIRECT LDL MEASUREMENT. Classification: Near or above optimal . 69 Anion gap measurement may be of limited value in the presence of any alkalosis, especially in a combined acid base disorder. . [address] Randle 71 Anion gap measurement may be of limited value in the presence of any alkalosis, especially in a combined acid base disorder. . 72 Source: URINE,VOIDED Isolate #1: Escherichia coli 40,000 col/ml ANTIBIOTIC LEBRON Inter Cost Amoxicillin/CA <=2 Susceptible 4 Ampicillin <=2 Susceptible 3 Cefaclor Susceptible Cefazolin <=4 Susceptible 4 Cefuroxime - Axetil 4 Susceptible 5 Cefuroxime - Sodium 4 Susceptible 5 Cephalothin 8 Susceptible N/A Ciprofloxacin <=0.25 Susceptible PO 2, IV 4 Gentamicin <=1 Susceptible 3 Nalidixic Acid <=2 Susceptible 0 Tetracycline <=1 Susceptible 1 Trimethoprim/Sulfa <=20 Susceptible PO 1, IV 4 Levofloxacin <=0.25 Susceptible PO 2, IV 4 Nitrofurantoin <=16 Susceptible 1, UR* --- COST CODES: The cost codes for the antibiotics reported provide the relative costs of these antibiotics per day of therapy. The higher the number, the more expensive the antibiotic is. NOTE: 'UR' indicates that the antibiotic is appropriate for the treatment of urinary tract infections only. --- If additional antimicrobial susceptibility test results for hospital inpatients are needed for antibiotics not listed on this report, please contact the Microbiology laboratory at [phone]. --- 73 Source: URINE,VOIDED Isolate #1: Escherichia coli >100,000 col/ml ANTIBIOTIC LEBRON Inter Cost Amoxicillin/CA <=2 Susceptible 4 Ampicillin <=2 Susceptible 3 Cefaclor Intermediate Cefazolin <=4 Susceptible 4 Cefuroxime - Axetil 4 Susceptible 5 Cefuroxime - Sodium 4 Susceptible 5 Cephalothin 16 Intermediate N/A Ciprofloxacin <=0.25 Susceptible PO 2, IV 4 Gentamicin <=1 Susceptible 3 Nalidixic Acid <=2 Susceptible 0 Tetracycline <=1 Susceptible 1 Trimethoprim/Sulfa <=20 Susceptible PO 1, IV 4 Levofloxacin <=0.25 Susceptible PO 2, IV 4 Nitrofurantoin <=16 Susceptible 1, UR* --- COST CODES: The cost codes for the antibiotics reported provide the relative costs of these antibiotics per day of therapy. The higher the number, the more expensive the antibiotic is. NOTE: 'UR' indicates that the antibiotic is appropriate for the treatment of urinary tract infections only. --- If additional antimicrobial susceptibility test results for hospital inpatients are needed for antibiotics not listed on this report, please contact the Microbiology laboratory at [phone]. --- Procedures Date CPT Code Description Status Comment 11/06/[address] Colvin- negative- consider repeat 2020 (10 years) 12/27/2004 41199 EKG, at Least 12 Leads Completed w/Interpretation and Report 02/18/2002 66913 Oximetry - Single Study Completed Encounters Type Date Location Provider CPT E/M Dx Office Visit 09/16/2017 11:30a [place] [address] R51 Office Visit 03/05/2017 12:00p Main Office Liz Rollins M.D. 35881 M81.0 M25.561 Office Visit 10/15/2016 11:15a Main Office Liz Rollins M.D. 10007 M25.561 M81.0 Office Visit 03/05/2016 11:00a Main Office Liz Rollins M.D. 62163 H25.13 Z01.818 M54.2 M25.572 Z23 Office Visit 11/30/2015 3:45p Main Office Tiburcio Rahman M.D. 48644 M94.0 M81.0 Office Visit 09/28/2015 10:15a Main Office Liz Rollins M.D. G0439 Z00.01 M54.2 I63.9 Z90.5 E53.9 G25.81 Z12.31 M81.0 E55.9 Z23 Office Visit 2015 2:00p Main Office Liz Rollins M.D. 49566 M54.2 H26.9 Office Visit 04/12/2015 2:30p Main Office Liz Rollins M.D. 54952 M54.2 Office Visit 03/28/2015 11:15a Main Office Liz Rollins M.D. 82210 I63.9 Z71.9 Office Visit 03/16/2015 11:15a Main Office Liz Rollins M.D. 73475 I63.9 I69.828 M54.2 M54.5 Office Visit 11/04/2014 3:00p Main Office Liz Rollins M.D. 11634 599.0 Office Visit 05/11/2014 12:00p Main Office Liz Rollins M.D. 17079 V70.0 593.89 266.9 733.90 783.21 599.70 788.41 724.5 729.5 379.90 V76.51 Office Visit 10/26/2013 10:30a Main Office COOPER Schuler 93339 724.5 Office Visit 05/14/2012 9:15a Main Office COOPER Schuler 82958 372.00 Office Visit 05/12/2012 4:00p Main Office COOPER Estes 92097 372.03 Office Visit 03/07/2012 10:30a Main Office COOPER Schuler 04085 924.9 Office Visit 08/17/2011 8:00a Main Office COOPER Schuler 79094 V70.0 454.9 719.46 Office Visit 07/30/2011 3:00p Main Office COOPER Schuler 91416 112.9 Office Visit 05/25/2010 1:30p Main Office Liz Rollins M.D. 77785 724.5 729.5 Office Visit 11/02/2009 10:15a Main Office Liz Rollins M.D. 52488 V72.31 V82.9 266.9 733.90 724.5 V76.51 V06.5 Office Visit 09/19/2009 11:45a Main Office Brenda Sevilla PA-C 11169 599.0 Office Visit 08/02/2009 4:45p Main Office Liz Rollins M.D. 05954 599.0 719.44 733.90 Office Visit 07/30/2009 10:00a Main Office Roslyn Champion M.D. 45336 719.44 Office Visit 06/07/2009 2:30p Main Office Liz Rollins M.D. 70974 724.5 Office Visit 03/01/2009 1:00p Main Office Liz Rollins M.D. 38836 724.5 Office Visit 09/08/2008 3:50p Main Office Liz Rollins M.D. 76185 599.0 Office Visit 08/13/2008 10:15a Main Office Suzie Young [facility] 35536 599.0 Office Visit 05/07/2008 11:00a Main Office Suzie Young [facility]- 21210 599.0 Office Visit 03/19/2008 3:30p Main Office Suzie Young, [facility] 14039 466.0 599.0 Office Visit 11/03/2007 10:30a Main Office Liz Rollins M.D. 74520 599.0 Office Visit 10/06/2007 3:00p Main Office Shannan Ferguson 67174 599.0 787.91 Office Visit 03/12/2007 9:30a Main Office Liz Rollins M.D. 61159 466.0 593.89 790.6 733.99 Office Visit 02/27/2006 11:15a [place] [address] 595.0 Office Visit 06/29/2005 10:15a Main Office Tiburcio Rahman M.D. 90688 373.11 374.41 Office Visit 03/05/2005 12:00p Main Office Liz Rollins M.D. 20327 719.46 729.1 V04.81 Office Visit 12/27/2004 11:00a Main Office Liz Rollins M.D. 15486 719.46 715.00 V17.3 785.1 454.9 Office Visit 10/16/2004 10:45a Main Office Delia Mccormack M.D. 43968 794.4 715.00 Office Visit 08/03/2004 4:15p Main Office Tiburcio Rahman M.D. 99254 465.9 Office Visit 09/16/2002 10:15a Main Office Liz Rollins M.D. 83230 719.46 Office Visit 02/18/2002 4:30p Main Office Liz Rollins M.D. 67197 786.2 Office Visit 12/18/2001 3:30p Main Office Liz Rollins M.D. 33800 733.00 Office Visit 10/20/2001 2:15p Main Office [facility] 03511 599.0 Office Visit 08/25/2001 1:45p Main Office Liz Rollins M.D. 51387 715.16 783.1 V17.3 V76.9 Office Visit 06/17/2001 9:30a Main Office Liz Rollins M.D. 51638 715.16 715.17 454.9 692.9 Plan of Care Future Appointment(s):01/22/2018 11:15 am - Liz Rollins M.D. at Main [id number]/07/2017 - Liz Rollins M.D.Z00.00 Encntr for general adult medical exam w/o abnormal findingsComments:HEALTH MAINTENANCE REMINDERS DISCUSSED. ENCOURAGED HEALTHY EATING, CONTINUE TO STAY ACTIVE AND DO LAW CHI, GET CALCIUM INTAKE WITH DIET. DISCUSSED MONTHLY BSE, DECLINES MAMMOGRAM.Follow up:.Recommendations:-- GET YOUR FLU VACCINE EVERY YEAR IN THE FALL -- REMINDER TO SEE DENTIST -- CHECK WITH YOUR INSURANCE ABOUT THE SHINGRIX SHINGLES VACCINE COVERAGE- 2 DOSES 2-6 MONTHS APART CHECK TO SEE IF IT IS COVERED AT THE PHARMACY (IF SO, I CAN GIVE YOU A PRESCRIPTION FOR IT AND YOU CAN GET THE VACCINE AT YOUR PHARMACY) OR IF IT IS COVERED AT OUR OFFICE (IF SO, YOU CAN MAKE AN APPOINTMENT FOR A NURSE VISIT OR YOU CAN GET THE VACCINE AT YOUR NEXT APPOINTMENT). -- REMINDER BRING IN MOLST FORM (THE HOT PINK FORM) AT YOUR NEXT HUGVXV43.20 Lyme disease, unspecifiedComments:PT IS IMPROVING AND TOLERATING THE DOXYCYCLINE, FINISH THE FULL 4 WEEKS OF DOXYCYCLINE. WILL ALSO CHECK TICK- BORNE PANEL TO EVAL FOR POSSIBLE ANAPLASMOSIS, ANANT CBC SINCE HAD MILD LEUKOPENIA WITH THE LYME.Follow up:. -- EMRecommendations:-- WE CHECKED TICK- BORNE PANEL BLOODWORK TODAY -- FINISH OUT THE DOXYCYCLINE COURSE- YOU SHOULD CONTINUE TO FEEL AZAXAVQ90.0 Age-related osteoporosis w/o current pathological fractureComments:HAS BEEN ON IBANDRONATE SINCE AROUND 03/2017, DR. DESAI, DOING WELL.Follow up:.Recommendations:-- CONTINUE CALCIUM IN YOUR DIET -- CONTINUE THE VITAMIN D3 1000 IU PER DAY -- CONTINUE THE IBANDRONATE 150 MG ONCE PER MONTH -- CONTINUE YOUR WALKING AND LAW CHIZ90.5 Acquired absence of kidneyComments:PT HAS BEEN ASYMPTOMATIC, CR HAS BEEN STABLE, ANANT CR WAS MILDLY HIGHER A FEW WEEKS AGO WITH LYME.Follow up:-- F/U JANUARY OR FEBRUARY- MINI63.9 Cerebral infarction, unspecifiedComments:DOING WELL, NO FURTHER EXPRESSIVE SPEECH ISSUES EVIDENT. CONTINUE ASA 81 MG PER DAY.Follow up: .Recommendations:-- STAY ON YOUR BABY ASPIRIN 81 MG PER DAYE53.9 Vitamin B deficiency, unspecifiedFollow up:.Recommendations:-- WE RECHECKED YOUR VITAMIN B12 LEVEL GROEEF14.31 Encntr screen mammogram for malignant neoplasm of breastComments:PT DECLINES FURTHER MAMMOGRAMS, SHE WILL CONTINUE BSE.Follow up: .Recommendations:-- LET ME KNOW IF YOU CHANGE YOUR MIND ABOUT GETTING YOUR DWIQTUVNHG21.9 Vitamin D deficiency, unspecifiedFollow up:.Recommendations:-- CONTINUE THE VITAMIN D3 1000 IU PER DAYM21.40 Flat foot [pes planus] (acquired) , unspecified footComments:PT DUE FOR NEW ORTHOTICS- GOES TO [facility].Follow up:-- EMRecommendations:-- GET YOUR ORTHOTICS DONE- I GAVE YOU THE YWKJMRSZWKNAF18.819 Varicose veins of unspecified lower extremity with painNew Medication:Compression SocksFollow up:. -- EMRecommendations:-- GET THE THIGH-HIGH COMPRESSION STOCKINGS- ON IN THE MORNING, OFF AT NIGHT, TO USE FOR THE VARICOSE VEINS/ ACHING -- YOU CAN TRY PROFESSIONAL HOME CARE (BY FIVE MARCELO PHIPPS AND NATASHA)- [phone]
--- OUTSIDE RECORDS SUMMARY | 2017-10-08 17:10 | XMS REPORT ---
:1935 External Reference #:[id number] Author Organization [facility] Address [address] [place] [address] Phone [phone] Care Team Providers Name Role Phone Liz Rollins M.D. Primary Care Physician Unavailable Payers Type Date Identification Numbers Payment Provider Subscriber Commercial Effective: Policy Number: [id number] Selvin Faulkner 2007 Expires: 2009 Group Number: [id number] [address] Group Name: [place] [address] PayID: [id number] Medigap Part B Effective: 2009 Policy Number: [id number] Selvin Faulkner Expires: 2010 Group Name: [employer] [address] PayID: [id number] [place] [address] Commercial Effective: 2014 Policy Number: [employer] Alana Faulkner [id number] PayID: [id number] [address] [place] [address] Problems Date Description Provider Status Onset: 11/30/2015 [...] Form Strength Qnty SIG Indications Ordering Provider Walker 10/15 Active 1unit walker with M25.561 s wheels and P. seat- severe Blegen, osteoarthriti M.DKate s, knee pain Aspirin 08/21 Active Chewtabs 81mg 1 by mouth every day Georgie Rollins M.D. Vitamin D-3 05/11 Active Capsules 1000Unit decrease to Liz 1000 Iu per P. day Milton Rollins Nutritional 05/11 Active powder Liz Georgie Rollins M.D. Ibandronate Active Tablets 150mg 1 by mouth Lacho Desai Sodium /0000 every month MD as directed for osteoporosis- do not eat or drink or lie down for 60 minutes after taking Ciprofloxacin 11/18 Hx Tablets 250mg 10tab 1 by mouth 599.0 Tico HCL s twice a day Chanda - for 5 days III, 03/04 for uti [employer] /2015 Alendronate 10/15 Hx Tablets 70mg 4tabs take one tablet by P. - mouth once a Ble, 10/15 week on empty M.D. stomach do not lie down or eat or take meds for -60 min Gabapentin 09/27 Hx Capsules 100mg 30cap take 1 to 3 G25.81 s capsules by P. - mouth at [facility], 03/05 bedtime as M.D. needed for pain and restless legs Zostavax 09/27 Hx Solution 36218Cyp/ 1unit shingles Z00.01 Rec 0.65ML s vaccine as P. - directed Ble, 03/04 M.D. Tramadol HCL 04/15 Hx Tablets 50mg 20tab take 1/2-1 Shawnti s tablet up to Meggan Young, - twice per day [employer] 03/05 as needed for severe pain, can cause drowsiness Lidocaine 01/06 Hx Patches 5% 1unit apply patch s to neck for P. - pain as Blegen, 09/27 directed, august M.D. use up to every 12 hours Tizanidine HCL 04/12 Hx Tablets 2mg 14tab 1 PO QHS prn s Muscle Spasm P. - Blegen, 04/15 M.D. Aspirin 03/16 Hx Tablets 325mg 1 PO qd ( Started After P. - CVA) Blegen, 08/21 M.D. Ciprofloxacin 11/04 Hx Tablets 250mg 10tab 1 by mouth 599.0 Liz HCL s twice a day P. - for 5 days Blegen, 03/09 for uti M.D. Cipro 05/16 Hx Tablets 250mg 10tab one by mouth s twice a day x P. - 5 days Blegen, 05/30 M.D. 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 High - Blegen, 09/27 M.D. Fish Oil 05/11 Hx Capsules 1000mg 1-2 by mouth every day P. - Blegen, 03/28 M.D. Juice Plus 05/11 Hx Capsule fruit cap in am/ veggie P. - cap in pm Blegen, 10/15 M.D. Cyclobenzaprine 10/26 Hx Tablets 5mg 30tab 1 by mouth 724.5 Delia HCL s three times a Maribell, - day for [employer] 05/11 muscle spasm, may cause drowsiness Hydrocodone-Acet 10/26 Hx Tablets 5-325mg 10ten 1 by mouth q4 724.5 Delia aminophen - 6 hours as Maribell, - needed [employer] 05/11 Sulfacetamide 05/12 Hx Solution 10% 1bott 2 gtts both 372.03 Shawnti Sodium le eyes 4 times R. Storm, - daily for 5 [employer] 05/25 days Hydrocodone/Acet 03/19 Hx Tablets 5-325mg 15fif 1 po q 6 hrs Delia aminophen /2011 teen prn pain Maribell, - [employer] 05/11 Tramadol HCL 03/08 Hx Tablets 50mg 30thi 1 po q4-6hr rty prn severe R. Hector, - pain [employer] 05/11 Nystatin/Triamci 07/29 Hx Cream 082123-5. 30gm apply to rash 112.9 Delia nolone 1Unit/GM- on chest bid Maribell, - % for up to 3 [employer] Quad Cane 09/21 Hx Use as Liz [...] s days Kandace Orr M.D., 01/09 R.D. Physical Therapy 08/26 Hx Eval And Liz Treat Low P. 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 10/21 Darvocet-N 50 03/01 Hx Tablets 50-325mg 30tab 1 po q 6 s hours prn P. - severe pain Blegen, 08/16 M.D. Cipro 09/08 Hx Tablets 250mg 20tab one po bid x s 10 days P. - Blegen, 03/03 M.D. Cipro 05/07 Hx Tablets 250mg 6tabs 1 pill po bid 599.0 nt for 3 days RKtae Young, - for urine [employer] 08/18 infection Ciprofloxacin 10/05 Hx Tablets 250mg 20tab one po bid 599.0 Shawnti HCL /2007 s for 10 days Meggan Young, - for infection [employer] 03/29 Asmanex 30 04/22 Hx Aerosol 220mcg/In [...] Ointment 0.5% 1Tube apply tid x 7 days to P. Ointment - affected eye [...] Tablets 600mg;30 30tab 1 PO bid 465.9 mg s Lacey - M.D. 11/01 Ultram 09/21 Hx Tablets 50mg 20tab One To Two PO s bid prn P. - Severe Pain Blegen, 01/09 M.D. Percocet 09/16 Hx Tablets 5/325 mg 30tab [...] CPT Code Status Date Vaccine Lot # [id number] Given 01/16/2017 Influenza Virus Vaccine, Quadrivalent, 3 Yr > Quad, Preserv Free 40052 Given 03/05/2016 Influenza Vaccine High Dose PF [id number] 21575 Given 09/28/2015 Prevnar-13 Pneumococcal Conjugate Vaccine [id number] 50311 Given 03/17/2010 Influenza Vaccine-Preservative Free 3 Yrs And [id number] Above 68042 Given 11/02/2009 DT (Adult) [id number] 36288 Given 02/26/2006 Influenza Virus Vaccine, 3 Yrs And Above [id number] 88552 Given 03/05/2005 Influenza Virus Vaccine, 3 Yrs And Above [id number] 53567 Given 03/01/2004 Influenza Virus Vaccine, 3 Yrs And Above 66650 Given 03/30/2003 Influenza Virus Vaccine, 3 Yrs And Above 92275 Given 03/30/2003 Pneumovax 23 (PPSV23) 65+ years or high risk 2 to 64 year old 60575 Given 02/17/2002 Influenza Virus Vaccine, 3 Yrs And Above 52610 Given 02/06/2001 Influenza Virus Vaccine, 3 Yrs And Above 31553 Given 02/01/1999 Influenza Virus Vaccine, 3 Yrs And Above 34830 Given 01/28/1997 Pneumovax 23 (PPSV23) 65+ years or high risk 2 to 64 year old 95714 Given 01/28/1997 Influenza Virus Vaccine 77403 Given 09/06/1994 DT (Adult) 03495 Given 05/30/1992 DT (Adult) Vital Signs Date Vital Result Comment 09/16/2017 Weight 138.00 lb Weight in kg's [...] Test Date Test Result H/L Range Note Laboratory test finding 09/16/2017 Lyme Disease Serology <pending> Laboratory test finding 09/16/2017 C Reactive Protein <pending> Laboratory test finding 01/16/2017 Calcium 9.9 mg/dL 8.6-10.3 Vitamin D Total 25(Oh) 53.2 ng/mL High 20-50 Pthi 01/16/2017 Calcium (PTH Intact) 9.9 mg/dL 8.6-10.3 PTH Intact 6.0 pmol/L 1.3-9.3 Laboratory test finding 01/16/2017 Creatinine Random Urine 56.86 mg/dL Osteocalcin 26 ng/mL 9 - 42 1 Bone Alkaline Phosphatase, S 17 g/L 2 NTX (N-Telopeptide) Urine 01/16/2017 Urine Creatinine 49 mg/dL NTX 257 nmol/L Ur NTX-Telo 59 nmol/mmol 3 Laboratory test finding 09/28/2015 Vitamin B12 734 pg/mL 180-914 4 Vitamin D Total 25(Oh) 59.0 ng/mL High 30-50 5 Comp Metabolic Panel 09/28/2015 Sodium 137 mmol/L [...] Egfr Non- 67.1 >60 Egfr 86.3 >60 6 Urine DIP 09/28/2015 Leukocytes + Neg Urine [...] Present No bands detecte <SEE NOTE> kDa 7 Lyme Disease Interpretation See Comment 8 Laboratory test finding 2015 Erythrocyte Sed Rate 16 mm/Hr 0-40 9 CBC Auto Diff 03/09/2015 White Blood Count [...] Egfr Non- 66.3 >60 Egfr 85.3 >60 10 Laboratory test finding 03/09/2015 Lactic Acid 0.8 mmol/L 0.5-2.2 Inr/Protime 03/09/2015 Inr 0.91 0.89-1.11 Urinalysis Profile 03/09/2015 Urine Color Yellow Urine Appearance Clear Urine Specific Prole 1.008 Low 1.010-1.030 Urine pH 6.0 5-9 Urine Urobilinogen Negative Negative Urine Ketones Negative Negative Urine Protein Negative Negative Urine Leukocytes Negative Negative Urine Blood Negative Negative Urine Nitrite Negative Negative Urine Bilirubin Negative Negative Urine Glucose Negative Negative Laboratory test finding 03/09/2015 Point of Care Glucose 92 mg/dL 74-106 11 Urine DIP 11/08/2014 Specific Prole 1.015 1.01-1.02 Urine pH 5 5-6 Leukocytes TRACE Neg Urine Nitrites NEG Neg Total Protein, Urine NEG Neg Urine Glucose NORM Norm Urine Ketones NEG Neg Urobilinogen NORM Norm Urine Bilirubin NEG Neg Urine Blood TRACE Neg Laboratory test finding 11/08/2014 Urine Culture And SEE RESULT BELOW 12 Sensitivities Urinalysis Profile 11/04/2014 Urine Color Straw Urine Appearance Clear Urine Specific Prole 1.004 Low 1.010-1.030 Urine pH 7.0 5-9 Urine Urobilinogen Negative Negative Urine Ketones Negative Negative Urine Protein Negative Negative Urine Leukocytes Negative Negative Urine Blood Negative Negative Urine Nitrite Negative Negative Urine Bilirubin Negative Negative Urine Glucose Negative Negative Laboratory test 11/04/2014 Urine Culture And SEE RESULT 13 finding Sensitivities BELOW Urine DIP 11/04/2014 Specific Prole 1.005 Low 1.01-1.02 Urine pH 6 5-6 Leukocytes TRACE Neg Urine Nitrites NEG Neg Total Protein, Urine NORM Neg Urine Glucose NORM Norm Urine Ketones NEG Neg Urobilinogen NORM Norm Urine Bilirubin NEG Neg Urine Blood TRACE Neg Laboratory test finding 06/15/2014 Alp Bone Isoenzymes 20 g/L 14 N Telopeptide Serum 22.7 nMBCE 15 Protein Electrophoresis 06/15/2014 Total Protein(Pep) 7.3 g/dL 6.3 - 7.9 Albumin 3.6 g/dL 3.4-4.7 Alpha-1 Globulin 0.2 g/dL 0.1-0.3 Alpha-2 Globulin 1.1 g/dL 0.6-1.0 Beta Globulin 0.9 g/dL 0.7-1.2 Gamma Globulin 1.6 g/dL 0.6-1.6 Albumin/Globulin Ratio 0.95 Impression See Comment 16 Pthi 06/15/2014 PTH Intact 4.7 pmol/L 1.3-9.3 Calcium (PTH Intact) 10.2 mg/dL 8.6-10.3 Laboratory test finding 06/15/2014 Osteocalcin 34 ng/mL 9 - 42 17 Folate > 20.00 ng/mL >3.99 Urinalysis Profile 06/15/2014 Urine Color Straw Urine Appearance Clear Urine Specific Prole 1.005 Low 1.010-1.030 Urine pH 7.0 5-9 [...] ng/mL 25-Hydroxy Vitamin D Total 31 ng/mL 18 Comp Metabolic Panel 05/11/2014 Sodium 137 mmol/L [...] Egfr Non- 72.5 >60 Egfr 93.2 >60 19 CBC Auto Diff 05/11/2014 White Blood Count [...] finding 05/11/2014 Vitamin B12 762 pg/mL 180-914 20 Urinalysis Profile 05/11/2014 Urine Color Yellow Urine Appearance Cloudy Urine Specific Prole 1.008 Low 1.010-1.030 Urine pH 6.0 5-9 [...] Culture And 05/11/2014 Urine Culture (SEE NOTE) 21 Sensitivities Urine DIP 05/11/2014 Specific Prole 1.010 1.01-1.02 Urine pH 6 5-6 Leukocytes ++ Neg Urine Nitrites neg Neg Total Protein, Urine neg Neg Urine Glucose norm Norm Urine Ketones neg Neg Urobilinogen norm Norm Urine Bilirubin neg Neg Urine Blood trace Neg Urine DIP 10/27/2013 Specific Prole 1.01 1.01-1.02 Urine pH 6 5-6 Leukocytes [...] neg Neg Urine Blood neg Neg Specific Prole n/a Low 1.01-1.02 CBC Auto Diff 08/10/2011 [...] mmol/L 22-32 Anion Gap 2.0 mmol/L 2-11 22 Glucose 85 mg/dL 70-100 BUN 13 mg/dL 6-24 Creatinine 1.0 mg/dL 0.50-1.40 One Over Creatinine 1.00 BUN/Creatinine Ratio 13.0 8-20 Calcium 9.8 mg/dL 8.1-9.9 Total Protein 6.4 GM/DL 6.2-8.1 Albumin 3.7 GM/DL 3.2-5.2 Globulin 2.7 GM/DL 2-4 Albumin/Globulin Ratio 1.4 1-3 Bilirubin Total 1.0 mg/dL 0.4-1.5 23 Alkaline Phosphatase 83 U/L 30-110 Alt (SGPT) 18 U/L 14-54 Ast (Sgot) 23 U/L 12-42 eGFR Non- 54.1 > 60 eGFR 69.5 > 60 24 Lipid Profile (Trig/Chol/HDL) 08/10/2011 Triglyceride 47 mg/dL 40-200 Cholesterol 189 mg/dL Less Than 200 25 High Density Lipoprotein 74 mg/dL High 40-60 26 Cholesterol/HDL Ratio 2.55 AVERAGE 1-4.44 Low Density Lipoprotein 106 mg/dL High Less Than 100 27 Vitamin D, 25 Hydroxy 11/02/2009 25-Hydroxy Vitamin D2 <4.0 ng/mL () 25-Hydroxy Vitamin D3 57 ng/mL () 25-Hydroxy Vitamin D Total 57 ng/mL () 28 Laboratory test finding 11/02/2009 Vitamin B12 511 pg/mL 180-914 Varicella Zoster Igg Positive Negative 29 Erythrocyte Sed Rate 18 MM/HR 0-40 Urine DIP 11/02/2009 Leukocytes NEG Neg Urine Nitrites NEG Neg Urine pH 5 5-6 Total Protein, Urine NEG Neg Urine Glucose NORM Norm Urine Ketones NEG Neg Urobilinogen NORM Norm Urine Bilirubin NEG Neg Urine Blood NEG Neg Specific Prole NA Low 1.01-1.02 Urine Culture & Sensitivi 09/27/2009 Urine Culture Sensitivi SN1 30 Urine DIP 09/27/2009 Leukocytes + Neg Urine Nitrites NEG Neg Urine pH 5 5-6 Total Protein, Urine NEG Neg Urine Glucose NORM Norm Urine Ketones NEG Neg Urobilinogen NORM Norm Urine Bilirubin NEG Neg Urine Blood NEG Neg Specific Prole NA Low 1.01-1.02 Urine Culture & Sensitivi 09/19/2009 Urine Culture ESCHERICHIA COLI 31 Sensitivi Urine Culture 09/19/2009 Ampicillin <=2 Sensitivities [...] Neg Urine Blood 250 High Neg Specific Prole NEG Low 1.01-1.02 Laboratory test finding 08/02/2009 Urine Culture No growth. Urine DIP 08/02/2009 Leukocytes NEG Neg Urine Nitrites NEG Neg Urine pH 5 5-6 Total Protein, Urine NEG Neg Urine Glucose NORM Norm Urine Ketones NEG Neg Urobilinogen NORM Norm Urine Bilirubin NEG Neg Urine Blood NEG Neg Specific Prole NA Low 1.01-1.02 Laboratory test finding 07/30/2009 Rheumatoid Factor < 20.0 IU/mL Less Than 20 Cyclic Citrullinated Pep Igg <15.6 U () 32 Erythrocyte Sed Rate Stat 07/30/2009 Erythrocyte Sed Rate 46 MM/HR High 0- 40 CBC With Electronic Diff 07/30/2009 White Blood [...] Eosinophils 0.1 0-0.6 Abs Basophils 0 0-0.2 Laboratory test 07/30/2009 C Reactive Protein 1.6 mg/dL High Less Than 0.5 finding Vitamin D, 25 Hydroxy 07/28/2009 25-Hydroxy Vitamin <4.0 ng/mL () D2 25-Hydroxy Vitamin D3 61 ng/mL () 25-Hydroxy Vitamin D Total 61 ng/mL () 33 Laboratory test finding 07/28/2009 TSH 3.30 MIU/ML 0.34-5.60 Comp Metabolic Panel 07/28/2009 Sodium 140 mmol/L 135-145 Potassium 4.3 mmol/L 3.5-5.0 Chloride 106 mmol/L 101-111 Co2 (Carbon Dioxide) 28.0 mmol/L 22-32 Anion Gap 6.0 mmol/L 2-11 34 Glucose 90 mg/dL 70-100 35 BUN 16 mg/dL 6-24 Creatinine 0.80 mg/dL 0.50-1.40 One Over Creatinine 1.20 BUN/Creatinine Ratio 20.0 8-20 Calcium 9.9 mg/dL 8.1-9.9 36 Total Protein 6.9 GM/DL 6.2-8.1 Albumin 3.7 GM/DL 3.2-5.2 Globulin 3.2 GM/DL 2-4 Albumin/Globulin Ratio 1.2 1-3 Bilirubin Total 0.6 mg/dL 0.4-1.5 37 Alkaline Phosphatase 89 U/L 30-110 Alt (SGPT) 21 U/L 14-54 Ast (Sgot) 25 U/L 12-42 eGFR Non- 74.7 > 60 eGFR 90.4 > 60 38 PTH Intact, Inc Total Calcium 07/28/2009 PTH Intact 5.7 PMOL/L 1.3-9.3 39 Calcium For Pthi 9.9 mg/dL 8.1-9.9 40 Urine DIP 07/23/2009 Leukocytes 1++ High Neg Urine Nitrites POS Neg Urine pH 5 5-6 Total Protein, Urine NEG Neg Urine Glucose NORM Norm Urine Ketones NEG Neg Urobilinogen NORM Norm Urine Bilirubin NEG Neg Urine Blood 250 High Neg Specific Prole NA Low 1.01-1.02 Urine DIP 03/01/2009 Leukocytes NEG Neg Urine Nitrites NEG Neg Urine pH 5 5-6 Total Protein, Urine NEG Neg Urine Glucose NORM Norm Urine Ketones NEG Neg Urobilinogen NORM Norm Urine Bilirubin NEG Neg Urine Blood NEG Neg Specific Prole N/A Low 1.01-1.02 Urine DIP 09/08/2008 Leukocytes ++ Neg Urine Nitrites pos Neg Urine pH 5 5-6 Total Protein, Urine +++500 High Neg Urine Glucose norm Norm Urine Ketones neg Neg Urobilinogen norm Norm Urine Bilirubin neg Neg Urine Blood about 250 Neg Specific Prole n/a Low 1.01-1.02 Laboratory test finding 09/08/2008 Urine Culture Escherichia coli 41 GFR (Calculated) 09/08/2008 GFR (Calculated) 47 42 Basic Metabolic Panel 09/08/2008 Glucose 102 mg/dL [...] Laboratory test 08/13/2008 Urine Culture ENTEROBACTERIACE <SEE 43 finding Sensitivi NOTE> Urine DIP 05/07/2008 Leukocytes ++ Neg Urine Nitrites trace Neg Urine pH 5 5-6 Total Protein, Urine neg Neg Urine Glucose norm Norm Urine Ketones neg Neg Urobilinogen norm Norm Urine Bilirubin neg Neg Urine Blood 250 High Neg Specific Prole n/a Low 1.01-1.02 Ast GN20 05/07/2008 Ampicillin >=32 Amikacin <=2 Ciprofloxacin <=0.25 Cefazolin <=4 Nitrofurantoin <=16 Gentamicin <=1 Imipenem <=1 Levofloxacin <=0.25 Meropenem <=0.25 Trimeth-Sulfa <=20 Ceftazidime <=1 Tigecycline <=0.5 Piperacillin/Tazobactam <=4 Laboratory test finding 05/07/2008 Urine Culture ESCHERICHIA COLI Sensitivi Laboratory test finding 03/19/2008 Urine Culture Escherichia coli 44 Urine DIP 03/19/2008 Leukocytes ++ Neg Urine Nitrites NEG Neg Urine pH 5 5-6 Total Protein, Urine NEG Neg Urine Glucose NORM Norm Urine Ketones NEG Neg Urobilinogen NORM Norm Urine Bilirubin NEG Neg Urine Blood NEG Neg Specific Prole NORM Low 1.01-1.02 Urine DIP 11/26/2007 Leukocytes NEG Neg Urine Nitrites NEG Neg Urine pH 5 5-6 Total Protein, Urine NEG Neg Urine Glucose NORM Norm Urine Ketones NEG Neg Urobilinogen NORM Norm Urine Bilirubin NEG Neg Urine Blood NEG Neg Specific Prole NA Low 1.01-1.02 Laboratory test finding 11/03/2007 Urine Culture Sensitivi NG 45 Urine DIP 11/03/2007 Leukocytes ++ Neg Urine Nitrites NEG Neg Urine pH 5 5-6 Total Protein, Urine NEG Neg Urine Glucose NORM Norm Urine Ketones NEG Neg Urobilinogen NORM Norm Urine Bilirubin NEG Neg Urine Blood ABOUT 250 Neg Specific Prole NORM Low 1.01-1.02 Urine DIP 10/06/2007 Leukocytes ++ Neg Urine Nitrites POS Neg Urine pH 5 5-6 Total Protein, Urine TRACE Neg Urine Glucose NORM Norm Urine Ketones NEG Neg Urobilinogen NORM Norm Urine Bilirubin NEG Neg Urine Blood ABOUT 250 Neg Specific Prole N/A Low 1.01-1.02 Laboratory test finding 10/06/2007 Urine Culture Escherichia coli 46 Hemoccult 05/30/2007 Stool-Occult Blood #1 NEG Neg Stool-Occult Blood #2 NEG Neg Stool-Occult Blood #3 NEG Neg Urine Culture And Sensitivites 05/29/2007 Urine Culture Sensitivi NG 47 Urine DIP 05/29/2007 Leukocytes NEG Neg Urine Nitrites NEG Neg Urine pH 5 5-6 Total Protein, Urine NEG Neg Urine Glucose NORM Norm Urine Ketones NEG Neg Urobilinogen NORM Norm Urine Bilirubin NEG Neg Urine Blood NEG Neg Specific Prole NORM Low 1.01-1.02 Laboratory test finding 04/28/2007 Urine Culture Enterococcus spe <SEE NOTE > 48 Gram Positive Sensitivity 04/24/2007 Ampicillin <=2 Ciprofloxacin <=0.5 Nitrofurantoin <=16 High Level Streptomycin SYN-S Levofloxacin 1 Penicillin 4 Tetracycline >=16 Vancomycin <=1 Urine Culture And 04/22/2007 Urine Culture MODERATE [GROUP 49 Sensitivites Sensitivi <SEE NOTE> Urine DIP 04/22/2007 Leukocytes TRACE Neg Urine Nitrites NEG Neg Urine pH 5-6 5-6 Total Protein, Urine NEG Neg Urine Glucose NORM Norm Urine Ketones NEG Neg Urobilinogen NORM Norm Urine Bilirubin NEG Neg Urine Blood NEG Neg Specific Prole NA/ Low 1.01-1.02 CBC With Electronic Diff 03/12/2007 White Blood [...] 4.2-5.4 Redcell Distribution WDTH 13 % 10.5-15 Comp Metabolic Panel 03/12/2007 One Over Creatinine 0.90 Anion Gap 10.0 mmol/L 2-11 50 Albumin/Globulin Ratio 1.1 1-3 Albumin 3.9 GM/DL [...] Ratio 12.7 8-20 Creatinine 1.1 mg/dL 0.5-1.4 Laboratory test finding 03/12/2007 Vitamin B12 404 pg/mL 180-914 Urine Culture And 03/12/2007 Urine Culture MANY [ESCHERICHI 51 Sensitivites Sensitivi <SEE NOTE> Gram Neg Lebron Sensitivity 03/12/2007 Ampicillin <=2 Amikacin <=2 Ciprofloxacin <=0.25 Cefazolin <=4 Gentamicin <=1 Levofloxacin <=0.25 Meropenem <=0.25 Trimeth-Sulfa <=20 Tigecylcine <=0.5 Piperacillin/Tazobactam <=4 Urine DIP 03/12/2007 Leukocytes 1+ High Neg Urine Nitrites NEG Neg Urine pH 5 5-6 Total Protein, Urine NEG Neg Urine Glucose NORM Norm Urine Ketones NEG Neg Urobilinogen NORM Norm Urine Bilirubin NEG Neg Urine Blood NEG Neg Specific Prole NA Low 1.01-1.02 Urine DIP 02/27/2006 Leukocytes NEG Neg Urine Nitrites NEG Neg Urine pH 5 5-6 Total Protein, Urine NEG Neg Urine Glucose NORM Norm Urine Ketones NEG Neg Urobilinogen NORM Norm Urine Bilirubin NEG Neg Urine Blood NEG Neg Specific Prole NA Low 1.01-1.02 Lipid Profile (Trig/Chol/HDL) 02/26/2006 Cholesterol 194 mg/dL Less Than 200 52 Triglyceride 48 mg/dL 40-200 High Density Lipoprotein 64 mg/dL High 40-60 53 Low Density Lipoprotein 120 mg/dL High Less Than 100 54 Cholesterol/HDL Ratio 3.03 AVERAGE 1-4.44 Comp Metabolic Panel 02/26/2006 One Over Creatinine 1.00 Anion Gap 6.0 mmol/L 2-11 55 Albumin/Globulin Ratio 1.3 1-3 Albumin 3.9 GM/DL [...] Metabolic Panel 03/05/2005 Albumin 3.6 GM/DL 3.2-5.2 56 Alt (SGPT) 22 U/L 14-54 56 Calcium 10.2 mg/dL 8.7-10.2 56 Co2 (Carbon Dioxide) 29.0 mmol/L 22-32 56 Chloride 106 mmol/L 101-111 56 Creatinine .8 .5-1.4 56 Glucose 101 mg/dL 70-105 56 Alkaline Phosphatase 97 U/L 30-110 56 Potassium 4.6 mmol/L 3.5-5.0 56 Total Protein 6.7 GM/DL 6.2-8.1 56 Sodium 140 mmol/L 135-145 56 Ast (Sgot) 21 U/L 12-42 56 BUN 16 mg/dL 6-24 56 Bilirubin Total 0.4 mg/dL 0.4-1.5 56 One Over Creatinine 1.25 56 Anion Gap 5.0 mmol/L 2-11 56, 57 Albumin/Globulin Ratio 1.2 1-3 56 Globulin 3.1 GM/DL 2-4 56 BUN/Creatinine Ratio 20.0 8-20 56 Creatinine 0.8 mg/dL 0.5-1.4 56 Laboratory test finding 03/05/2005 Ferritin 98 NG/ML 11.0-307 56 Iron Total 59 g/dL 28-170 56 TSH 1.79 MIU/ML 0.34-5.60 56 Magnesium 2.5 mg/dL 1.7-2.6 56 Vitamin B12 280 pg/mL 180-914 56 Folic Acid > 20.0 NG/ML High 2.2-18.3 56 Hemoglobin 03/05/2005 Hematocrit 36 % 35-47 56 Hemoglobin 12.0 g/dL 12.0-16.0 56 Laboratory test finding 03/05/2005 Free Thyroxine 0.78 ng/dL 0.58-1.64 56 Urine DIP 12/27/2004 Leukocytes NEG Neg Urine Nitrites NEG Neg Urine pH 5 5-6 Total Protein, Urine NL Neg Urine Glucose NL Norm Urine Ketones NL Neg Urobolinogen NL Norm Urine Bilirubin NL Neg Urine Blood NL Neg Specific Prole N/A Low 1.01-1.02 Laboratory test finding 10/13/2002 Pathology Report [facility] CYST Xray 09/17/2002 Knee, 3 Views, RT SEE TRIAGE 11/26/03 [id number] 11/22/2001 Red Blood Count 3.98 CUMM Low 4.2-5.4 MCH (Corpuscular Hemoglobin) 32 pg High 27-31 Monocytes 9.2 High 2.0-13.0 Comp Met Panel/Lipid [facility] 11/22/2001 LDL.Calculated 115 mg/dL High <100 Laboratory test finding 10/20/2001 Urine Culture FINAL 58 Gram Negative Susc. Panel FINAL Gni Panel FINAL Urine DIP 10/20/2001 Leukocytes + Neg Urine Nitrites NEG Neg Urine pH 5 5-6 Total Protein, Urine NEG Neg Urine Glucose NORM Norm Urine Ketones NGE Neg Urobolinogen NORM Norm Urine Bilirubin NEG Neg Urine Blood NEG Neg Specific Prole NA Low 1.01-1.02 Laboratory test finding 08/25/2001 Urine Culture FINAL 59 Gram Negative Susc. Panel FINAL Gni Panel FINAL Urine DIP 08/25/2001 Leukocytes NEG' Neg Urine Nitrites POSITIVE Neg Urine pH 5 5-6 Total Protein, Urine NL Neg Urine Glucose NL Norm Urine Ketones NL Neg Urobolinogen NL Norm Urine Bilirubin NL Neg Urine Blood NL Neg Specific Prole N/A Low 1.01-1.02 1 Test Performed by: [email or web address] [place] [employer] [place] [place] [address] 2 REFERENCE VALUE <=14 (Premenopausal) <=22 (Postmenopausal) Test Performed by: [email or web address] [place] [address] 3 nmol/mmol=nmol Bone Collagen Equivalents/mmol Creatinine REFERENCE VALUE Premenopausal: 17-94 nmol/mmol Postmenopausal: 26-124 nmol/mmol Test Performed by: [facility] [address] [place] [address] 4 Normal Range 180 to 914 Indeterminate Range 145 to 180 Deficient Range <145 5 [id number] 6 Because ethnic data is not always readily [...] 15-29 5 Kidney failure <15 (or dialysis) 7 No bands detected 8 Specific serologic response to B. burgdorferi infection [...] test (e.g., EIA). Test Performed by: [facility] [address] [place] [address] Steward/Stewardess Smoke Room: Wei Maqruez II, M.D., Ph.D. 9 [id number] 10 Because ethnic data is not always readily [...] 15-29 5 Kidney failure <15 (or dialysis) 11 Project Surveyor: [id number] BRITTANY STARKEY 12 SEE RESULT BELOW Name: ALANA FAULKNER : [address]: Liz Rollins MD Acct: [id number] Unit: [id number] AGE: 79 Location: [facility] Re11/08/14 SEX: F Status: REG REF SPEC: [id number] AMBROSE: 11/08/14-[address]: Liz Rollins MD REQ: [id number] RECD: 11/08/14 STATUS: COMP _ SOURCE: URINE SPDESC: ORDERED: Urine Culture Procedure Result Verified Site Urine Culture Final 11/10/14- 1026 ML No Growth Day 2 (<1,000 CFU/mL) * ML - MAIN LAB (PSC1) . END OF REPORT * ML=Testing performed at Main Lab DEPARTMENT OF PATHOLOGY, [address] [place] [address] Gino Adame M.D. Director [facility] # [id number] 13 SEE RESULT BELOW Name: ALANA FAULKNER : [address]: Liz Rollins MD Acct: [id number] Unit: [id number] AGE: 79 Location: [facility] Re11/04/14 SEX: F Status: REG REF SPEC: [id number] AMBROSE: 11/04/[address]: Liz Rollins MD REQ: [id number] RECD: 11/04/14 STATUS: COMP _ SOURCE: URINE SPDESC: ORDERED: Urine Culture Procedure Result Verified Site Urine Culture Final 11/07/14- 0804 ML Organism 1 STAPHYLOCOCCUS EPIDERMIDIS [place] Count >100,000 (Many) CFU/ML 1. STAPHYLOCOCCUS EPIDERMIDIS [...] These antibiotics are not available in the [facility] Formulary Contact the Microbiology Department for any additional antibiotic reporting. * ML - MAIN LAB ([facility]) . END OF REPORT * ML=Testing performed at Main [facility] DEPARTMENT OF PATHOLOGY, [address] [place] [address] Gino Adame M.D. Director [facility] # [id number] 14 REFERENCE VALUE <=14 (Premenopausal) <=22 (Postmenopausal) Test Performed by: [place] [address] Steward/Stewardess Smoke Room: Wei Marquez II, M.D., Ph.D. 15 INTERPRETIVE INFORMATION: N-Telopeptide, Cross-Linked, Serum Adult Male.......................5.4 - 24.2 nM BCE Premenopausal Adult Female.......6.2 - 19.0 nM BCE The target value for treated post-menopausal adult females is the same as the premenopausal reference interval. BCE=Bone Collagen Equivalent Test Performed by: [facility] [address] [place] [address] 16 RESULT: No apparent monoclonal protein on serum electrophoresis. Test Performed by: [place] [address] Steward/Stewardess Smoke Room: Wei Marquez II, M.D., Ph.D. 17 Test Performed by: [place] [address] Steward/Stewardess Smoke Room: Wei Marquez II, M.D., Ph.D. 18 REFERENCE VALUE 25-HYDROXY D TOTAL (D2+D3) Optimum levels in the healthy population are 20-50, patients with bone disease may benefit from higher levels within this range. Test Performed by: [facility] - [address] [address] Steward/Stewardess Smoke Room: Gerardo Goodwin M.D. 19 Because ethnic data is not always readily [...] 15-29 5 Kidney failure <15 (or dialysis) 20 Normal Range 180 to 914 Indeterminate Range 145 to 180 Deficient Range <145 21 RUN DATE: 05/14/14 [facility] LAB LIVE PAGE 1 RUN TIME: [address] [place] [id number] Specimen Inquiry Name: ALANA FAULKNER : [address]: Liz Rollins MD Acct: [id number] Unit: [id number] AGE: 78 Location: [facility] Re05/11/14 SEX: F Status: REG REF SPEC: [id number] AMBROSE: 05/11/14-1232 [facility] DR: Liz Rollins MD REQ: [id number] RECD: 05/11/14 STATUS: COMP _ SOURCE: URINE SPDESC: ORDERED: Urine Culture QUERIES: Provider Requisition # [id number] Procedure Result Verified Site Urine Culture Final 05/14/14- 913 ML Organism 1 ESCHERICHIA COLI [place] Count 10-25,000 (Moderate) CFU/ML 1. ESCHERICHIA COLI [...] performed at Main Lab DEPARTMENT OF PATHOLOGY, [address] [place] [address] Gino Adame M.D. Director [facility] # [id number] 22 Anion gap measurement may be of limited value in the presence of any alkalosis, especially in a combined acid base disorder. . 23 A metabolite of Naproxen, O-desmethylnaproxen, has been shown to interfere with the Jendrassik-Daxa method for measuring total bilirubin. Samples from patients who have taken Naproxen have shown spurious elevation in total bilirubin levels. 24 Because ethnic data is not always [...] 5 Kidney failure <15 (or dialysis) 25 CHOLESTEROL INTERPRETATION: Desirable: Less than 200 MG/DL Borderline-High Risk: 200-239 MG/DL High-Risk: 240 MG/DL and over 26 HDL INTERPRETATION: Undesirable: High Risk: Less than 40 MG/DL Desirable: Low Risk: Greater than 60 MG/DL 27 LDL INTERPRETATION: Low Risk Optimal Level: LDL Less than 100 MG/DL Near or Above Optimal: LDL 100-129 MG/DL Borderline High Risk: LDL 130-159 MG/DL High Risk: LDL 160-189 MG/DL Very High Risk: LDL Greater than 189 MG/DL 28 -- REFERENCE VALUE -- 25-HYDROXY D TOTAL (D2+D3) Optimum levels in the normal population are 25-80 Test Performed by: [facility] Dpt of Lab Med and Pathology [address] [place] [address] Steward/Stewardess Smoke Room: Martell Adame III, M.D. 29 Test Performed by: [facility] Dpt of Lab Med and Pathology [address] [place] [address] Steward/Stewardess Smoke Room: Martell Adame III, M.D. 30 SCANT NORMAL URETHRAL OR PERINEAL RHYS 31 75^50-75,000 ORGANISMS/ML (MANY)^CCU 32 -- REFERENCE VALUE -- <20.0 (Negative) 20.0-39.9 (Weak Positive) 40.0-59.9 (Positive) >=60.0 (Strong Positive) Test Performed by: [facility] Dpt of Lab Med and Pathology [address] [place] [address] Steward/Stewardess Smoke Room: Martell Adame III, M.D. 33 -- REFERENCE VALUE -- 25-HYDROXY D TOTAL (D2+D3) Optimum levels in the normal population are 25-80 Test Performed by: [facility] Dpt of Lab Med and Pathology [address] [place] [address] Steward/Stewardess Smoke Room: Martell Adame III, M.D. 34 Anion gap measurement may be of limited value in the presence of any alkalosis, especially in a combined acid base disorder. . 35 Note change in reference range as of 11/27/07. The change was based on recommendations from the [employer]. 36 Please note change in reference range effective 07 . 37 A metabolite of Naproxen, O-desmethylnaproxen, has been shown to interfere with the Jenpoonamik-Daxa method for measuring total bilirubin. Samples from [...] 5 Kidney failure <15 (or dialysis) 39 PLEASE NOTE CHANGE IN REFERENCE RANGE OF 04/15/06. 40 Please note change in reference range effective 08 . 41 >100,000 col/ml URINE CULTURE organism 1 Escherichia coli >100,000 col/ml Ertapenem <=0.5 mcg/mL Susceptible Ampicillin <=2 mcg/mL Susceptible Ampicillin/sulbactam <=2 mcg/mL Susceptible Cefazolin <=4 mcg/mL Susceptible Ciprofloxacin <=0.25 mcg/mL Susceptible Gentamicin <=1 mcg/mL Susceptible Levofloxacin <=0.25 mcg/mL Susceptible Nitrofurantoin 32 mcg/mL Susceptible Piperacillin/tazobactam <=4 mcg/mL Susceptible Trimethoprim/Sulfa <=20 mcg/mL Susceptible 42 mL/min/1.73m2 . Normal Function or Mild Renal [...] for creatinine ([facility]ira Int Med 139/2 137-149, 2003), as recommended by the National Kidney Disease [...] drugs that are excreted by the kidneys. 43 ENTEROBACTERIACEAE 44 20,000 col/ml URINE CULTURE organism 1 Escherichia coli 20,000 col/ml Ertapenem <=0.5 mcg/mL Susceptible Ampicillin <=2 mcg/mL Susceptible Ampicillin/sulbactam <=2 mcg/mL Susceptible Cefazolin <=4 mcg/mL Susceptible Ciprofloxacin <=0.25 mcg/mL Susceptible Gentamicin <=1 mcg/mL Susceptible Levofloxacin <=0.25 mcg/mL Susceptible Nitrofurantoin <=16 mcg/mL Susceptible Piperacillin/tazobactam <=4 mcg/mL Susceptible Trimethoprim/Sulfa 40 mcg/mL Susceptible 45 FINAL: NO GROWTH DAY 2 (<1,000 CFU/mL) 46 >100,000 col/ml URINE CULTURE organism 1 Escherichia coli >100,000 col/ml Ertapenem <=0.5 mcg/mL Susceptible Ampicillin <=2 mcg/mL Susceptible Ampicillin/sulbactam <=2 mcg/mL Susceptible Cefazolin <=4 mcg/mL Susceptible Ciprofloxacin <=0.25 mcg/mL Susceptible Gentamicin <=1 mcg/mL Susceptible Levofloxacin <=0.25 mcg/mL Susceptible Nitrofurantoin <=16 mcg/mL Susceptible Piperacillin/tazobactam <=4 mcg/mL Susceptible Trimethoprim/Sulfa <=20 mcg/mL Susceptible 47 FINAL: NO GROWTH DAY 2 (<1,000 CFU/mL) 48 Enterococcus species 30,000 col/ml URINE CULTURE Enterococcus species 30,000 col/ml 1 Nitrofurantoin <=16 mcg/mL Susceptible Penicillin-G 4 mcg/mL Susceptible Vancomycin <=1 mcg/mL Susceptible 49 MODERATE [GROUP D ENTEROCOCCUS] 50^25-50,000 ORGANISMS/ML (MODERATE)^CCU GROUP D ENTEROCOCCUS 50 Anion gap measurement may be of limited value in the presence of any alkalosis, especially in a combined acid base disorder. . 51 MANY [ESCHERICHIA COLI] >100^>100,000 ORGANISMS/ML^CCU ESCHERICHIA COLI 52 Classification: Desirable . 53 Classification: High . 54 CALCULATED LDL APPROXIMATES THE VALUE OF A DIRECT LDL MEASUREMENT. Classification: Near or above optimal . 55 Anion gap measurement may be of limited value in the presence of any alkalosis, especially in a combined acid base disorder. . [address] Randle 57 Anion gap measurement may be of limited value in the presence of any alkalosis, especially in a combined acid base disorder. . 58 Source: URINE,VOIDED Isolate #1: Escherichia coli 40,000 [...] report, please contact the Microbiology laboratory at [phone]. --- 59 Source: URINE,VOIDED Isolate #1: Escherichia coli >100,000 [...] report, please contact the Microbiology laboratory at [phone]. --- Procedures Date CPT Code Description Status Comment 11/06/[address] Colvin- negative- consider repeat 2020 (10 years) 12/27/2004 19195 EKG, at Least 12 Leads Completed w/Interpretation and Report 02/18/2002 89544 Oximetry - Single Study Completed Encounters Type Date Location Provider CPT E/M Dx Office Visit 03/05/2017 12:00p Main Office Liz Rollins M.D. 41748 M81.0 M25.561 Office Visit 10/15/2016 11:15a Main Office Liz Rollins M.D. 55385 M25.561 M81.0 Office Visit 03/05/2016 11:00a Main Office Liz Rollins M.D. 31471 H25.13 Z01.818 M54.2 M25.572 Z23 Office Visit 11/30/2015 3:45p Main Office Tiburcio Rahman M.D. 83311 M94.0 M81.0 Office Visit 09/28/2015 10:15a Main Office Liz Rollins M.D. G0439 Z00.01 M54.2 I63.9 Z90.5 E53.9 G25.81 Z12.31 M81.0 E55.9 Z23 Office Visit 2015 2:00p Main Office Liz Rollins M.D. 34032 M54.2 H26.9 Office Visit 04/12/2015 2:30p Main Office Liz Rollins M.D. 86995 M54.2 Office Visit 03/28/2015 11:15a Main Office Liz Rollins M.D. 59344 I63.9 Z71.9 Office Visit 03/16/2015 11:15a Main Office Liz Rollins M.D. 44826 I63.9 I69.828 M54.2 M54.5 Office Visit 11/04/2014 3:00p Main Office Liz Rollins M.D. 19126 599.0 Office Visit 05/11/2014 12:00p Main Office Liz Rollins M.D. 54848 V70.0 593.89 266.9 733.90 783.21 599.70 788.41 724.5 729.5 379.90 V76.51 Office Visit 10/26/2013 10:30a Main Office Delia IzaguirreCOOPER alvarez 51381 724.5 Office Visit 05/14/2012 9:15a Main Office Delia IzaguirrekelveyCOOPER 06002 372.00 Office Visit 05/12/2012 4:00p Main Office COOPER Estes 99967 372.03 Office Visit 03/07/2012 10:30a Main Office Delia IzaguirreCOOPER alvarez 78360 924.9 Office Visit 08/17/2011 8:00a Main Office Delia IzaguirreCOOPER alvarez 57712 V70.0 454.9 719.46 Office Visit 07/30/2011 3:00p Main Office Delia COOPER Reyna 02399 112.9 Office Visit 05/25/2010 1:30p Main Office Liz Rollins M.D. 04663 724.5 729.5 Office Visit 11/02/2009 10:15a Main Office Liz Rollins M.D. 26615 V72.31 V82.9 266.9 733.90 724.5 V76.51 V06.5 Office Visit 09/19/2009 11:45a Main Office Brenda Sevilla PA-C 96804 599.0 Office Visit 08/02/2009 4:45p Main Office Liz Rollins M.D. 11085 599.0 719.44 733.90 Office Visit 07/30/2009 10:00a Main Office Roslyn Champion M.D. 01456 719.44 Office Visit 06/07/2009 2:30p Main Office Liz Rollins M.D. 38993 724.5 Office Visit 03/01/2009 1:00p Main Office Liz Rollins M.D. 30422 724.5 Office Visit 09/08/2008 3:50p Main Office Liz Rollins M.D. 43044 599.0 Office Visit 08/13/2008 10:15a Main Office COOPER Estes 02560 599.0 Office Visit 05/07/2008 11:00a Main Office SEVEN Estes-Jethro 89498 599.0 Office Visit 03/19/2008 3:30p Main Office SEVEN Estes-C 42357 466.0 599.0 Office Visit 11/03/2007 10:30a Main Office Liz Rollins M.D. 09990 599.0 Office Visit 10/06/2007 3:00p Main Office Shannan Ferguson 84825 599.0 787.91 Office Visit 03/12/2007 9:30a Main Office Liz Rollins M.D. 29758 466.0 593.89 790.6 733.99 Office Visit 02/27/2006 11:15[place] [address] 595.0 Office Visit 06/29/2005 10:15a Main Office Tiburcio Rahman M.D. 01540 373.11 374.41 Office Visit 03/05/2005 12:00p Main Office Liz Rollins M.D. 91271 719.46 729.1 V04.81 Office Visit 12/27/2004 11:00a Main Office Liz Rollins M.D. 18339 719.46 715.00 V17.3 785.1 454.9 Office Visit 10/16/2004 10:45a Main Office Delia Mccormack M.D. 72343 794.4 715.00 Office Visit 08/03/2004 4:15p Main Office Tiburcio Rahman M.D. 80905 465.9 Office Visit 09/16/2002 10:15a Main Office Liz Rollins M.D. 08830 719.46 Office Visit 02/18/2002 4:30p Main Office Liz Rollins M.D. 99607 786.2 Office Visit 12/18/2001 3:30p Main Office Liz Rollins M.D. 97558 733.00 Office Visit 10/20/2001 2:15p Main Office [facility] 53362 599.0 Office Visit 08/25/2001 1:45p Main Office Liz Rollins M.D. 20228 715.16 783.1 V17.3 V76.9 Office Visit 06/17/2001 9:30a Main Office Liz Rollins M.D. 29434 715.16 715.17 454.9 692.9 Plan of Care Future Appointment(s):10/07/2017 10:15 am - Liz Rollins M.D. at Main [id number]/16/2017 - Obed Montgomery, MDR51 HeadacheComments:This patient, who does not strike me as a complainer, has a lot of complaints today.The level of severity of her symptoms sound a lot like Lyme disease. There has been a major uptake in Lyme rates lately.I checked for this is part of a larger panel of labs. I included other tickborne illnesses as well. I also included basic labs to be sure that there is no other active components to this illness.
--- NOTE | 2017-10-08 17:12 | ED ---
Lower Extremity - HPI Summary HPI Summary: Brought by EMS C/o left hip pain S/P mechanical fall today. Pt fell posteriorly onto left side. Has not ambulated since. Pt denies head injury, LOC, pain in neck, back, face, mouth, chest wall, bilat UE and left LE. Denies loss of sensation distally in left LE. No anticoag. 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 Non smoker, occ etoh, denies illegal drug use. Given fentanyl 100mcg x 2 and zofran 4mg x 1 by EMS. - History of Current Complaint Stated Complaint: FALL/LT HIP PAIN Time Seen by Provider: 10/08/17 16:51 Hx Obtained From: Patient Mechanism Of Injury: Fall From A Standing Position Onset of Pain: Immediate Severity Currently: Severe Pain Scale Used: 0-10 Numeric Timing: Constant Location: Is Discrete @ Character Of Pain: Sharp Associated Signs And Symptoms: Positive: Other - left foot rotated externally and left LE shorter than RT. Aggravating Factor(s): Movement Alleviating Factor(s): Nothing Able to Bear Weight: No - Allergies/Home Medications Allergies/Adverse Reactions: Allergies Allergy/AdvReac Type Severity Reaction Status Date / Time Cephalosporins Allergy Rash Verified 10/08/17 17:44 codeine Allergy Headache Verified 10/08/17 17:44 Sulfa (Sulfonamide Allergy Unknown Verified 10/08/17 17:44 Antibiotics) Reaction Details Home Medications: Home Medications Cholecalciferol (Vitamin D3) [Vitamin D3] 1,000 unit PO DAILY 10/08/17 [History Confirmed 10/08/17] DOXYcycline CAP(*) [DOXYcycline 100MG CAP(*)] 100 mg PO BID 10/08/17 [History Confirmed 10/08/17] Ibandronate TAB(NF) [Boniva(NF)] 150 mg PO MONTHLY 10/08/17 [History Confirmed 10/08/17] traMADol TAB* [Ultram*] 25 - 50 mg PO BID PRN 10/08/17 [History Confirmed ] PMH/Surg Hx/FS Hx/Imm Hx Endocrine/Hematology History: Denies: Hx Anticoagulant Therapy, Hx Diabetes Cardiovascular History: Denies: Hx Congestive Heart Failure, Hx Hypertension, Hx Pacemaker/ICD, Other Cardiovascular Problems/Disorders Respiratory History: Denies: Other Respiratory Problems/Disorders GI History: Denies: Other GI Disorders History: Denies: Hx Renal Disease, Other Problems/Disorders Musculoskeletal History: Reports: Hx Arthritis, Hx Osteoporosis, Other Musculoskeletal History - CERVICAL STENOSIS Sensory History: Reports: Hx Cataracts - LILIBETH, Hx Contacts or Glasses Denies: Hx Hearing Aid Opthamlomology History: Reports: Hx Cataracts - LILIBETH, Hx Contacts or Glasses Neurological History: Reports: Hx CVA Psychiatric History: Denies: Hx Panic Disorder - Surgical History Surgery Procedure, Year, and Place: BI-LAT KNEE REPLACEMENT; HYSTERECTOMY; LT NEPHRECTOMY; BLADDER MESH SLING'. LASER - EYE SURG Hx Anesthesia Reactions: No - Social History Alcohol Use: None Alcohol Amount: 1.5 DRINKS PER DAY Substance Use Type: Reports: None Smoking Status (MU): Never Smoked Tobacco Amount Used/How Often: PACK A DAY Review of Systems Constitutional: Negative Eyes: Negative ENT: Negative Cardiovascular: Negative Respiratory: Negative Gastrointestinal: Negative Genitourinary: Negative Musculoskeletal: Other Skin: Negative Neurological: Negative Psychological: Normal All Other Systems Reviewed And Are Negative: Yes Physical Exam - Summary Physical Exam Summary: Left foot is rotated externally, and left LE appears shorter than rt. PMS intact distally on left LE. No pain with movement or palpation of head, face, neck, back, chest wall, abdomen, bilat UE, right LE. Triage Information Reviewed: Yes Vital Signs Reviewed: Yes Appearance: Positive: Well-Appearing Skin: Positive: Warm Head/Face: Positive: Normal Head/Face Inspection Eyes: Positive: Normal ENT: Positive: Normal ENT inspection Neck: Positive: Supple Respiratory/Lung Sounds: Positive: Clear to Auscultation Cardiovascular: Positive: Normal Abdomen Description: Positive: Nontender Musculoskeletal: Positive: Other Neurological: Positive: Normal Psychiatric: Positive: Normal AVPU Assessment: Alert - Robyn Coma Scale Best Eye Response: 4 - Spontaneous Best Motor Response: 6 - Obeys Commands Best Verbal Response: 5 - Oriented Coma Scale Total: 15 Diagnostics - Laboratory Result Diagrams: 10/08/17 17:22 10/08/17 17:22 Lab Statement: Any lab studies that have been ordered have been reviewed, and results considered in the medical decision making process. - Radiology hip/plvs Xray Interpretation: Positive (See Comments) - introchanteric fracture left - CT pelvis CT Interpretation: Positive (See Comments) - introchanteric fracture left CT Interpretation Completed By: Radiologist - EKG 1 Cardiac Rate: NL EKG Rhythm: Sinus Rhythm ST Segment: Normal Ectopy: None Re-Evaluation - Re-Evaluation 1 Re-Evaluation Time: 19:04 Comment: pain controlled by 1mg dilaudid Lower Extremity Course/Dx - Course Course Of Treatment: Brought by EMS C/o left hip pain S/P mechanical fall today. Pt fell posteriorly onto left side. Has not ambulated since. Pt denies head injury, LOC, pain in neck, back, face, mouth, chest wall, bilat UE and left LE. Denies loss of sensation distally in left LE. No anticoasg. 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 Non smoker, occ etoh, denies illegal drug use. Given fentanyl 100mcg x 2 and zofran 4mg x 1 by EMS. Left foot is rotated externally, and left LE appears shorter than rt. PMS intact distally on left LE. No pain with movement or palpation of head, face, neck, back, chest wall, abdomen, bilat UE, right LE. Vital signs within normal limits. Labs unremarkable. Imaging positive for left hip fracture. Discussed patient with Dr. Whitaker who agreed to admit, and Dr. Wiggins orthopedics will consult. - Diagnoses Provider Diagnoses: Closed left hip fracture - Physician Notifications Discussed Care Of Patient With: Millie Contreras - admit to hosp, consult with santiago Discharge - Sign-Out/Discharge Documenting (check all that apply): Discharge/Admit/Transfer - Discharge Plan Condition: Stable Disposition: ADMITTED TO [facility] - Billing Disposition and Condition Condition: STABLE Disposition: Admitted to [facility]
[2017-10-08] MEDS ORDERED: HYDROmorphone INJ* 1 MG/ML CARPUJECT SYRINGE IV ONE ×2 (17:19→18:36)
[2017-10-08 17:33] LABS: ABS Basophils 0 10^3/ul (0-0.2); ABS Eosinophils 0.1 10^3/ul (0-0.6); ABS Lymphocytes 1.4 10^3/ul (1.0-4.8); ABS Monocytes 0.5 10^3/ul (0-0.8); ABS Neutrophils 3.4 10^3/ul (1.5-7.7); ABS Nucleated RBC 0 10^3/ul; Eosinophil % 1.7 % (0-6); Hematocrit 36 % (35-47); Hemoglobin 12.1 g/dl (12.0-16.0); Lymphocyte % 26.1 % (25-47); Mean Corpuscular HGB Conc 33 g/dl (31-36); Mean Corpuscular Hemoglobin 31 pg (27-31); Mean Corpuscular Volume 93 fL (80-97); Mean Platelet Volume 9.7 um3 (7.4-10.4); Nucleated Red Blood Cells % 0.1; Platelet Count 176 10^3/ul (150-450); Red Blood Count 3.89 10^6/ul (4.00-5.40); Red Cell Distribution Width 14 % (10.5-15); White Blood Count 5.5 10^3/ul (3.5-10.8)
[2017-10-08 17:42] LABS: INR 0.89 (0.77-1.02)
[2017-10-08 17:53] LABS: EGFR Non-African American 70.7 (>60)
--- NOTE | 2017-10-08 18:24 | RAD ---
Indication: Left hip pain. 2 views of left hip and an AP view of the pelvis demonstrates intertrochanteric fracture of the left hip. Pelvic ring is otherwise intact. IMPRESSION: Intertrochanteric fracture left hip.
--- NOTE | 2017-10-08 19:01 | RAD ---
Indication: Fall, left hip pain. CT of the pelvis was obtained in the axial plane. Sagittal and coronal reconstructed images were obtained. Intertrochanteric fracture of the left hip with medial angulation is again noted. The fracture is mildly comminuted. Greater trochanter appears to be distracted. The remainder of the pelvic ring is grossly intact. Sacroiliac joints and sacrum are grossly unremarkable. The aorta demonstrates atherosclerosis. No dilated loops of bowel are noted. No pelvic masses are identified. IMPRESSION: Intertrochanteric fracture of the left hip.
--- NOTE | 2017-10-08 20:03 | RAD ---
Indication: Left hip fracture. Traumatic. 2 views of left femur demonstrates intertrochanteric fracture of the left hip. Patient is status post left knee replacement. The remainder of the femur is intact. IMPRESSION: Intertrochanteric fracture of the left hip with medial angulation.
--- NOTE | 2017-10-08 20:03 | RAD ---
Indication: Preop hip fracture. Single view of the chest demonstrates no mediastinal shift. Heart is of normal size and configuration. Lung pickens are clear. No evidence of alveolar consolidation is noted. IMPRESSION: No active cardiopulmonary disease is noted.
[2017-10-08] MEDS ORDERED: Morphine VIAL* 4 MG/ML VIAL (1 ml vial) IV PRN (20:58)
[2017-10-08] MEDS ORDERED: Magnesium Hydroxide LIQ* 30 ML UDC PO PRN (20:58)
[2017-10-08] MEDS ORDERED: Acetaminophen TAB* 325 MG PO PRN (20:58)
[2017-10-08] MEDS ORDERED: NS 0.9% 1000 ML* 1,000 ML IV SCH (21:00)
[2017-10-08] MEDS ORDERED: Enoxaparin(*) 40 MG/0.4 ML SYR SUBCUT SCH (21:00)
[2017-10-08] MEDS: Ondansetron INJ* 2 MG/ML VIAL IV PRN (21:25)
[2017-10-08] MEDS ORDERED: Heparin VIAL(*) 5000 UNITS/ML VIAL (FIVE THOUSAND) SUBCUT ONE (21:31)
[2017-10-08 21:39] LABS: Urine Appearance Clear; Urine Blood Negative (Negative); Urine Color Yellow; Urine Ketones 1+ (Negative); Urine Protein Negative (Negative); Urine Specific Gravity 1.011 (1.010-1.030); Urine Urobilinogen Negative (Negative)
--- NOTE | 2017-10-08 22:25 | HP ---
CC: Dr. Rollins; Dr. Wiggins* HISTORY AND PHYSICAL: DATE OF ADMISSION: 10/08/17 PRIMARY CARE PROVIDER: Dr. Rollins. HEALTHCARE PROXY: Her son, Abdon. CODE STATUS: Full. SOURCE OF INFORMATION: History was obtained from interview with the patient and her son and review of past medical records. RELIABILITY: Good. CHIEF COMPLAINT: Fall with pain in the left hip. HISTORY OF PRESENT ILLNESS: This is an 82-year-old female with past medical history of a CVA in 2015, recent diagnosis of Lyme disease 2 weeks prior to presentation, osteoporosis, been in her usual state of health, walked in from outside, felt "sun blindness," difficulty seeing and tripped over a wooden block she had left on the floor. She fell landing on her left hip with immediate pain. She denies any preceding chest pain, shortness of breath, lightheadedness, loss of consciousness or head strike. She was able to drag herself to a phone in order to call her son after which, she was found and brought to [facility]. She reports recently feeling well without fevers or chills, nausea, vomiting, diarrhea, constipation or symptoms. She does note that 2 weeks prior, she had been feeling increasingly fatigued with general malaise. She saw Dr. Rollins. Rash was found in her left popliteal fossa and laboratory evidence confirmed new onset Lyme disease. She has been taking doxycycline twice daily for the last 2 weeks and has felt improved. When seen by this author, she was uncomfortable in the stretcher; however, in no distress. PAST MEDICAL HISTORY: 1. CVA in 2015, at [facility], no residual deficits. 2. Lyme disease, status post 2 weeks of doxycycline. 3. Osteoporosis. MEDICATIONS: 1. Doxycycline 100 mg twice daily. 2. Aspirin 81 mg daily. 3. An osteoporosis medication, Boniva 150 mg monthly. ALLERGIES: To CODEINE. FAMILY HISTORY: Mother with a brain tumor. Father with CAD, in his 70s. SOCIAL HISTORY: Quite tobacco at age 40. She has 23-year history of less than 1 pack per day. Alcohol, 1 glass of wine per night. She lives alone. She walks unassisted. REVIEW OF SYSTEMS: As per HPI, otherwise all other systems negative. PHYSICAL EXAMINATION GENERAL: Younger than stated age, sitting up in bed, interactive, pleasant, in no apparent distress. VITAL SIGNS: When seen by this author, 132/91, heart rate is 78, respiratory rate is 18, 99% on room air, T-max in the emergency room is 96.5. HEENT: Oropharynx is clear. She has dry mucous membranes. Sclerae are anicteric. She has no cervical or supraclavicular lymphadenopathy. LUNGS: Clear to auscultation. HEART: She has regular rate and rhythm without murmurs, rubs, or gallops. ABDOMEN: Soft, nontender, nondistended. EXTREMITIES: Warm, well perfused. She has 1+ DP and PT pulses bilaterally. NEUROLOGIC: She is alert and oriented x3. Cranial nerves II through XII are intact. No apparent anxiety, agitation, or depression. SKIN: Warm. Full sensation distally. Her left foot is everted. LABORATORY DATA/DIAGNOSTIC STUDIES: Pertinent labs notable for BUN 13, creatinine 0.78. White blood cell count 5.5, hemoglobin 12.1, platelets 176. INR is 0.89. Urinalysis is currently pending. Lactic acid 1.0. All other labs are normal. Troponin is 0.00. EKG: Sinus bradycardia, ventricular rate of 54, left axis, RSR in V1, but no right bundle in Q and II, III, and aVF. Pelvis CT, impression: Intertrochanteric fracture of the left hip. Chest x-ray, impression: No active cardiopulmonary disease. ASSESSMENT AND PLAN: This is an 82-year-old female generally good, underlying health, suffered a mechanical fall without preceding symptoms, suffered a left intertrochanteric hip fracture. 1. Left intertrochanteric hip fracture. Pain coverage n.p.o. at midnight, bowel regimen. Consulted Dr. Wiggins who has seen the patient in the emergency room and made plans for surgery tomorrow. Physical Therapy consult placed. Has excellent exercise tolerance. No known heart disease or kidney disease. No contraindications to proceeding with surgery. 2. History of cerebrovascular accident. Continue aspirin after the procedure. 3. History of Lyme disease. Undergoing current therapy. Continue doxycycline twice daily. 4. Osteoporosis. Hold the Boniva. 5. DVT prophylaxis, Lovenox once tonight, hold in the morning, restart in conjunction with orthopedic team after the surgery depending on the results. [id number]/[facility] #: [id number] [facility]
[2017-10-08] MEDS: Morphine VIAL* 4 MG/ML VIAL (1 ml vial) IV PRN (22:29)
--- NOTE | 2017-10-08 22:34 | CONS ---
ORTHOPEDIC CONSULTATION REPORT: DATE OF CONSULT: 10/08/17 CHIEF COMPLAINT: Left hip pain. HISTORY OF PRESENT ILLNESS: Ms. Faulkner is an 82-year-old female who tripped and fell in her home today on 10/08/17. She landed on her left side. She immediately had 10/10 pain in the left hip and was unable to bear weight. She was unable to stand. Only immobilization decreased her pain. Any movement of the left hip increased her pain. She was brought to [facility] by EMS and seen at the emergency room. Radiographs show intertrochanteric hip fracture on the left and I am consulted for orthopedic fracture care. PAST MEDICAL HISTORY: 1. Recent Lyme disease. 2. Osteoarthritis. 3. CVA with some speech deficits. 4. 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 5. Osteoporosis. 6. Osteoarthritis. 7. Vitamin B deficiency. 8. Vitamin D deficiency. 9. Pes planovalgus. 10. Varicose veins. 11. Osteoarthritis. PAST SURGICAL HISTORY: 1. Bilateral total knee arthroplasty with Dr. Randle. 2. Prior nephrectomy. 3. Hysterectomy. 4. Bladder sling surgery. CURRENT MEDICATIONS: 1. Doxycycline 100 mg p.o. b.i.d. 2. Tramadol 50 mg half a tab to 1 tab twice a day for severe pain. 3. Aspirin 81 mg p.o. daily. 4. Vitamin D 1000 units daily. 5. Ibandronate 150 mg p.o. q. monthly. ALLERGIES: CEPHALOSPORINS, CODEINE, PERCOCET, DARVOCET, VICODIN, SULFAS. FAMILY HISTORY: Positive for rheumatoid arthritis and paternal heart disease. SOCIAL HISTORY: The patient lives alone. She lives in the downstairs apartment and her son lives in the upstairs apartment, normally ambulates independently without a cane. No tobacco or recreational drug use. One glass of wine per day. REVIEW OF SYSTEMS: Fourteen systems reviewed with the patient today. Positive for left hip pain, recent fall. Positive for some left lateral ankle pain. Negative for fevers, chills, chest pain, shortness of breath, nausea, vomiting, headache, or dizziness. Otherwise, the patient reports review of systems is negative or not relevant. PHYSICAL EXAM: Vitals: Temperature 96.5, pulse 74, blood pressure 124/65. General: The patient is a thin female, in no apparent distress. Alert and oriented x3. Pleasant mood and appropriate affect. Gait is not assessed. Balance is not assessed. Coordination: Hand-eye coordination normal. HEENT: Atraumatic, normocephalic. Pupils equal and reactive to light. Chest: Unlabored breathing. Abdomen: Soft, nontender, nondistended. Bilateral Upper Extremities: The patient has several ecchymoses, a small superficial abrasion of the left elbow with some associated blood. She can forward flex the shoulders to 120 degrees bilaterally. She has significant arthritis along the DIP and PIP joints of her hands with varicosities. No edema or hyperreflexia. 4+/5 chief technical officer strength. Full sensation to light touch in all nerve distributions and 2+ palpable DP pulses. Right lower extremity: The patient's skin is intact. No abrasions or open wounds. Scattered varicosities, but no edema. No hyperreflexia. She can bend the hip and knee without pain. She has a healed midline incision at the knee. 5/5 ankle dorsiflexion and plantarflexion strength. Full sensation to light touch in all nerve distributions and 2+ palpable DP pulse. Left lower extremity, her leg is shortened and externally rotated. Tenderness with any palpation around the trochanteric region of the hip. The thigh is swollen, but soft and compressible. Healed midline incision at the knee distally. Significant varicosities with no edema or hyperreflexia. She can dorsiflex and plantarflex at the ankle. She has some slight tenderness to palpation over the lateral malleolus, but no bony crepitus. 2+ palpable DP pulse. DIAGNOSTIC STUDIES/LAB DATA: Radiographs: Multiple views of the patient's left hip and femur show a comminuted displaced intertrochanteric hip fracture on the left. This is greater than 3 parts. Distally, she has total knee arthroplasty cemented with significant osteolysis along the anterior distal femur. No femoral shaft fracture is noted. CT of the pelvis shows the same. There are no additional findings on CT of the pelvis. She has a chest x-ray with no active cardiopulmonary disease. She has an EKG with some sinus bradycardia less than 60. Labs from 10/08/17 show white blood cells 5.5, hematocrit 36, platelets 176,000 , no left shift. INR is 0.89. Sodium 137, potassium 4.1. BUN and creatinine 13 and 0.78. Lactic acid 1.0. Normal liver enzymes. Alk phos 59. Troponin is 0. ASSESSMENT AND PLAN: Ms. Faulkner is an 82-year-old female, status post fall today with a displaced comminuted left intertrochanteric hip fracture. She does have significant osteoporosis history. Today, the patient and I discussed along with her friends and son the different options here. She understands there is a nonoperative treatment option. She would like to proceed with surgical intervention, so she can walk again. We discussed it and I recommended cephalomedullary device or gamma nail. We discussed the risks and benefits of the surgery including, but not limited to bleeding, infection, damage to nearby structures, continued pain, need for further surgery, failure of the fracture to heal, failure of the hardware, fracture around the implant, stroke, heart attack, blood clot, and . She wishes to proceed. The patient is admitted to the hospitalist team for preoperative optimization and clearance. If she is indeed cleared for surgery, I will tentatively plan her for 8 a.m. on 10/09/17 left ORIF of the intertrochanteric hip fracture. She should be n.p.o. after midnight. We will have a catheter placed. The patient and her family/friends' questions were answered. She will remain on bed rest. Thank you for this orthopedic consultation. [id number]/[facility] #: [id number] [facility]
[2017-10-08] MEDS: PTO:DOXYcycline CAP(*) 100 MG PO SCH (23:17)
[2017-10-08] MEDS: Senna TAB PO SCH (23:19)
[2017-10-08] MEDS: Docusate CAP* 100 MG PO SCH (23:19)
[2017-10-09] MEDS: Morphine VIAL* 4 MG/ML VIAL (1 ml vial) IV PRN ×3 (00:35→07:15)
[2017-10-09] MEDS ORDERED: LORazepam TAB(*) 1 MG PO ONE (01:03)
[2017-10-09] MEDS ORDERED: LORazepam TAB(*) 1 MG ONE (01:16)
[2017-10-09] MEDS: Senna TAB PO SCH ×2 (07:08→20:51)
[2017-10-09] MEDS: Docusate CAP* 100 MG PO SCH ×2 (07:08→20:51)
[2017-10-09] MEDS: PTO:DOXYcycline CAP(*) 100 MG PO SCH ×3 (07:08→20:51)
[2017-10-09] MEDS: Aspirin EC TAB* 81 MG TAB.EC PO SCH ×2 (07:08→13:41)
[2017-10-09] MEDS ORDERED: KETAMINE HCL* 50 MG/ML 10 ML VIAL ONE (07:39)
[2017-10-09] MEDS ORDERED: fentaNYL* 50 MCG/ML 2 ML VIAL (100 MCG VIAL) ONE (07:39)
[2017-10-09] MEDS ORDERED: Propofol* 10 MG/ML 20 ML BTL IV PUSH ONE (07:39)
[2017-10-09] MEDS ORDERED: Dexamethasone IV* 4 MG/ML 1 ML (4 MG) ONE (07:39)
[2017-10-09] MEDS ORDERED: Midazolam* 1 MG/ML 5 ML VIAL (5 MG) ONE (07:39)
[2017-10-09] MEDS ORDERED: Lidocaine 2% PF * 5 ML VIAL ONE (07:39)
[2017-10-09] MEDS ORDERED: Ondansetron ODT TAB* 4 MG ONE (07:39)
[2017-10-09] MEDS ORDERED: Ketorolac INJ* 30 MG/ML 1 ML VIAL ONE (07:39)
[2017-10-09] MEDS ORDERED: Phenylephrine INJ* 10 MG/ML 1 ML VIAL (10 MG) ONE (07:39)
[2017-10-09] MEDS ORDERED: Clindamycin 900 MG IVPREMIX(* 900 MG/50 ML SDV IV ONE (08:00)
[2017-10-09] MEDS ORDERED: Bupivacaine 0.5% SDV PF* 30ML VIAL ONE (08:26)
--- NOTE | 2017-10-09 08:50 | PN ---
Subjective Date of Service: 10/09/17 Interval History: Ms. Faulkner denies complaint. She states her pain is much better after surgery. She denies chest pain, SOB, nausea, or abdominal pain. Objective Active Medications: Acetaminophen (Tylenol Tab*) 650 mg PO Q4H PRN Aspirin (Aspirin Ec Tab*) 81 mg PO DAILY [facility] Docusate Sodium (Colace Cap*) 100 mg PO BID [facility] Doxycycline Hyclate (Vibramycin Cap(*)) 100 mg PO BID [facility] Sodium Chloride (Ns 0.9% 1000 Ml*) 1,000 mls @ 75 mls/hr IV PER RATE [facility] Magnesium Hydroxide (Milk Of Magnesia Liq*) 30 ml PO Q4H PRN Morphine Sulfate (Morphine Vial*) 2 mg IV Q2H PRN Ondansetron HCl (Zofran Inj*) 4 mg IV Q4H PRN Senna (Senokot Tab*) 1 tab PO BID [facility] Vital Signs: Temp Pulse Resp BP Pulse Ox 98.6 F 63 18 95/57 93 10/09/17 07:24 10/09/17 07:24 10/09/17 07:39 10/09/17 07:24 10/09/17 07:24 Oxygen Devices in Use Now: None Appearance: Female lying in bed in NAD, family at bedside Eyes: No Scleral Icterus Ears/Nose/Mouth/Throat: Mucous Membranes Moist Neck: Trachea Midline Respiratory: Symmetrical Chest Expansion and Respiratory Effort, Clear to Auscultation Cardiovascular: NL Sounds; No Murmurs; No JVD, No Edema Abdominal: NL Sounds; No Tenderness; No Distention Lymphatic: No Cervical Adenopathy Extremities: No Edema Neurological: Alert and Oriented x 3, NL Muscle Strength and Tone Result Diagrams: 10/08/17 17:22 10/08/17 17:22 Assess/Plan/Problems-Billing Assessment: Ms. Faulkner is an 82 yo F with a PMH of recent diagnosis of lyme disease, partial nephrectomy, osteoporosis, and hx of CVA who was admitted on 10/08/17 after a mechanical fall at home with left intertrochanteric hip fracture. - Patient Problems (1) Closed left hip fracture Comment: - POD # 0 s/p left hip surgery. - Patient has been hypotensive in the perioperative period, plan for 500ml fluid bolus and then NS @ 75 ml/hr. - Monitor H/H. - PT/OT to eval and treat. (2) Lyme disease Comment: - Continue doxycycline, day 15/21. (3) CVA (cerebral vascular accident) Comment: - Hx noted, continue aspirin. (4) H/O partial nephrectomy Comment: - Creatinine normal. - Due to renal nephrolithiasis (5) DVT prophylaxis Comment: - Lovenox (6) Full code status Comment: Status and Disposition: Inpatient. May need rehab.
[2017-10-09] MEDS ORDERED: EPHEDrine (Pressors)* 50 MG/ML VIAL ONE (09:07)
[2017-10-09] MEDS ORDERED: Ondansetron INJ* 2 MG/ML VIAL IV PRN (10:36)
[2017-10-09] MEDS ORDERED: Naloxone* 0.4 MG/ML 1 ML VIAL IV PRN (10:36)
[2017-10-09] MEDS ORDERED: fentaNYL* 50 MCG/ML 2 ML VIAL (100 MCG VIAL) IV PRN (10:36)
--- NOTE | 2017-10-09 10:49 | RAD ---
INDICATION: Gamma nail placement COMPARISON: October 08, 2017 FINDINGS: 62 seconds of fluoroscopy were provided for the orthopedics department. Fluoroscopic spot imaging of the left femur were obtained for operative control and show gamma nail placement with adventist of the anatomic relationships about the intratrochanteric fracture . CPT II Codes: G9500 (fluoro time doc)
[2017-10-09] MEDS ORDERED: oxyCODONE/Acetamin 5/325 MG* TAB PO PRN (10:53)
[2017-10-09] MEDS: Enoxaparin(*) 30 MG/0.3 ML SYR SUBCUT SCH (13:41)
[2017-10-09] MEDS: NS 0.9% 1000 ML* 1,000 ML IV SCH (13:45)
[2017-10-09] MEDS: NS 0.9% 500 ML* 500 ML IV ONE ×2 (14:03→14:04)
[2017-10-09] MEDS: traMADol TAB* 50 MG PO PRN ×2 (15:08→21:06)
[2017-10-09] MEDS ORDERED: NS 0.9% 500 ML* 500 ML IV ONE (17:51)
[2017-10-09] MEDS: Acetaminophen TAB* 325 MG PO SCH (20:44)
--- NOTE | 2017-10-10 00:12 | OP ---
OPERATIVE REPORT: DATE OF OPERATION: 10/09/17 - Inpatient, room [facility] [id number]. DATE OF : 35 SURGEON: Cindy Wiggins MD ANESTHESIOLOGIST: Dr. Prado. ANESTHESIA: General. PRE-OP DIAGNOSIS: Left displaced comminuted intertrochanteric hip fracture. POST-OP DIAGNOSIS: Left displaced comminuted intertrochanteric hip fracture. OPERATIVE PROCEDURE: Open reduction internal fixation of the left intertrochanteric hip fracture. HARDWARE USED: This is a short gamma nail. The nail was 11 x 180 x 125 degrees. The proximal lag screw was 10.5 x 105 mm. The distal locking screw was 5 x 37.5 mm. ESTIMATED BLOOD LOSS: 400 cc. COMPLICATIONS: None. SPECIMEN: None. BRIEF HISTORY/INDICATIONS: Ms. Faulkner is an 82-year-old female, who had a fall in her home on 10/08/17. She had immediate left hip pain and inability to move the hip. She was brought to [facility] Emergency Room and diagnosed with an intertrochanteric hip fracture. She was cleared by medical team for surgery. She was given operative and nonoperative treatment options. She wished to proceed with surgery. She understood the risks of surgery included, but were not limited to bleeding, infection, damage to nearby structures, continued pain, need for further surgery, intraoperative fracture, nerve palsy, hardware failure or loosening, failure of the bone to heal, stroke, heart attack , blood clot and . She wished to proceed. INTRAOPERATIVE FINDINGS: Intraoperatively, the patient was noted to have some comminution of the greater trochanteric tip. The fracture had more than 4 parts. She did have significant osteopenia noted. DESCRIPTION OF PROCEDURE: Ms. Faulkner was identified in the preanesthesia unit. Her left lower extremity was marked as the correct operative side. Informed consent was signed and placed in the chart. The patient was taken to the operating room and placed under general anesthesia. She already had a Emanuel catheter. She was transferred to the fracture table. Right lower extremity was placed in the lithotomy position with satisfactory padding. Left lower extremity was placed in the fracture boot. The appropriate amount of traction was applied to the left lower extremity. The leg was adducted and internally rotated. C-arm views confirmed that there was satisfactory reduction of the intertrochanteric hip fracture in both the AP and lateral planes. The left lower extremity was prepped and draped in the usual sterile fashion. Preop time -out was made to correctly identify the patient, side, and site. Appropriate perioperative antibiotics were given within 1 hour of incision. A 5 cm incision was made proximal to the tip of the greater trochanter. Electrocautery was used to dissect down to the fascial layer. Fascial layer was incised in line with skin incision. Finger dissection was made down to the tip of the greater trochanter. The comminution was palpable. An awl was used to find the appropriate starting point at the tip of the greater troch. This was confirmed on both AP and lateral views. The awl was advanced through the fracture site. AP and lateral views confirmed proper position of the awl. Using the cannulated portion of the awl, the guidewire was advanced down across the fracture site in an intramedullary position in the femoral canal. Proper position of the guidewire was confirmed on AP and lateral C-arm views. The awl was carefully removed. Over the guidewire, there was sequential reaming up to 13 distally and up to 15.5 proximally. Based on the patient's distal hemiarthroplasty and anterior bone loss along the femoral cortex, the decision was made to use the short gamma nail. An 11 x 180 x 125 degree short gamma nail was chosen. This was carefully advanced over the guidewire. Satisfactory position of the short gamma nail was confirmed on AP and lateral views. Using the lateral gamma nail guide, the lag screw guide was positioned against the skin. A 2 cm incision was made and carried down to the fascia to the bone. The guide was advanced down to the bone and locked into place. A guidewire was used to find a central position across the femoral neck into the femoral head. This was confirmed on AP and lateral C-arm views. The guidewire was measured at 105 mm. Pre-drilling was performed. A 10.5 x 105 mm lag screw was chosen. This was advanced over the guidewire. AP and lateral C-arm views confirmed satisfactory position of the lag screw. Compression was performed across the fracture site and C-arm views visibly confirmed an improvement in the reduction. A proximal locking screw was placed and locked into position. Next, attention was turned to placement of the distal locking screw through the nail. A 2 cm incision was made in the skin and carried down to the fascia down to the bone. The distal locking screw guide was advanced down to the bone and locked into place. A drill was used to predrill and this was measured at 37.5 mm. A 5 x 37.5 distal locking screw was chosen as a final implant. This was advanced through the guide through the nail and had satisfactory length. Proper position of the distal locking screw was confirmed on both AP and lateral C-arm views. At this point, final x-rays were obtained and saved. The lateral guide arm was released. All incisions were copiously irrigated with sterile saline. Fascial layers were closed using interrupted #1 Vicryl. The rest of the incisions were closed in a layered fashion using 0 and 2-0 Vicryl. The skin was closed using montse. Sterile, Xeroform, 4x4s, and a paper tape were used to cover the incision. The patient's anesthesia was reversed without difficulty. She was taken to the PACU in stable condition. Intended weightbearing will be weightbearing as tolerated. Intended DVT prophylaxis will be Lovenox daily. [id number]/[facility] #: [id number] [facility]ITAL[facility]
[2017-10-10] MEDS: traMADol TAB* 50 MG PO PRN ×2 (07:25→16:39)
[2017-10-10 08:10] LABS: Hematocrit 24 % (35-47); Hemoglobin 8.2 g/dl (12.0-16.0)
[2017-10-10] MEDS ORDERED: NS 0.9% 500 ML* 500 ML IV ONE (08:10)
[2017-10-10] MEDS ORDERED: Bisacodyl SUPP* 10 MG SUPP PR PRN (08:26)
[2017-10-10 08:31] LABS: EGFR Non-African American 95.7 (>60)
--- NOTE | 2017-10-10 08:32 | PN ---
Progress Note - Progress Note Date of Service: 10/10/17 SOAP: Subjective: [Patient reports doing well. Minimal pain at rest. Has been OOB with PT/OT. Denies CP, SOB, Nausea, calf pain.] Objective: [A and O x 3. NAD L hip dressing C/D/I -- per nursing recently changed because it was falling off. Surgical incisions benign. Calves soft, NT. Distal gross motor and NV function intact. Vital Signs: Temp Pulse Resp BP Pulse Ox 97.9 F 57 16 82/65 97 10/10/17 07:32 10/10/17 07:32 10/10/17 07:32 10/10/17 08:08 10/10/17 07:32 Laboratory Results - last 24 hr 10/10/17 08:01 Hgb 8.2 L Hct 24 L ] Assessment: [82 yo female s/p ORIF (gamma nail) L hip POD # 1] Plan: [PT/OT WBAT LLE Lovenox for DVT prophylaxis PMRU consult placed yesterday]
[2017-10-10] MEDS: Aspirin EC TAB* 81 MG TAB.EC PO SCH (08:33)
[2017-10-10] MEDS: Senna TAB PO SCH ×2 (08:33→21:04)
[2017-10-10] MEDS: Acetaminophen TAB* 325 MG PO SCH ×2 (08:34→21:05)
[2017-10-10] MEDS: PTO:DOXYcycline CAP(*) 100 MG PO SCH ×2 (08:35→21:04)
[2017-10-10] MEDS: Docusate CAP* 100 MG PO SCH ×2 (08:35→21:05)
--- NOTE | 2017-10-10 08:45 | PN ---
Subjective Date of Service: 10/10/17 Interval History: Patient seen and examined at bedside. Denies fever, chills, shortness of breath , chest discomfort, N/V/D. Pt states that her pain is well controlled if not moving her leg, and an 8/10 when she got up to the chair earlier this morning. Pt also reports mild dizziness when she got up to the chair this morning. Family History: Unchanged from Admission Social History: Unchanged from Admission Past Medical History: Unchanged from Admission Objective Active Medications: Acetaminophen (Tylenol Tab*) 650 mg PO Q4H PRN Reason: FEVER/PAIN Acetaminophen (Tylenol Tab*) 975 mg PO BID [facility] Aspirin (Aspirin Ec Tab*) 81 mg PO DAILY [facility] Bisacodyl (Dulcolax Supp*) 10 mg PA DAILY PRN Reason: CONSTIPATION Docusate Sodium (Colace Cap*) 100 mg PO BID [facility] Doxycycline Hyclate (Vibramycin Cap(*)) 100 mg PO BID [facility] Enoxaparin Sodium (Lovenox(*)) 30 mg SUBCUT Q24H [facility] Sodium Chloride (Ns 0.9% 1000 Ml*) 1,000 mls @ 75 mls/hr IV PER RATE [facility] Sodium Chloride (Ns 0.9% 500 Ml*) 500 mls @ 1,000 mls/hr IV ONCE ONE Stop: 10/10/17 08:39 Magnesium Hydroxide (Milk Of Magnrigoberto Liq*) 30 ml PO Q4H PRN Reason: CONSTIPATION Morphine Sulfate (Morphine Vial*) 2 mg IV Q2H PRN Reason: PAIN Ondansetron HCl (Zofran Inj*) 4 mg IV Q4H PRN Reason: NAUSEA/VOMITING Oxycodone/Acetaminophen (Percocet 5/325 Tab*) 1 tab PO Q4H PRN Reason: PAIN Senna (Senokot Tab*) 1 tab PO BID [facility] Tramadol HCl (Ultram*) 50 mg PO Q6H PRN Reason: PAIN Vital Signs - 8 hr 10/10/17 10/10/17 10/10/17 03:22 03:25 03:33 Temperature 97.6 F Pulse Rate 60 Respiratory 16 Rate Blood Pressure 90/54 (mmHg) O2 Sat by Pulse 97 96 Oximetry 10/10/17 10/10/17 10/10/17 07:25 07:32 08:08 Temperature 97.9 F Pulse Rate 57 Respiratory 18 16 Rate Blood Pressure 80/46 82/65 (mmHg) O2 Sat by Pulse 97 Oximetry Oxygen Devices in Use Now: None Appearance: NAD, sitting up in a chair Ears/Nose/Mouth/Throat: Mucous Membranes Moist Respiratory: Symmetrical Chest Expansion and Respiratory Effort, Clear to Auscultation Cardiovascular: NL Sounds; No Murmurs; No JVD, RRR Abdominal: NL Sounds; No Tenderness; No Distention Extremities: No Edema Skin: No Rash or Ulcers Neurological: Alert and Oriented x 3, NL Muscle Strength and Tone Lines/Tubes/Other Access: Clean, Dry and Intact Emanuel - patent, draning clear yellow urine, Clean, Dry and Intact Peripheral IV - site benign Nutrition: Taking PO's Result Diagrams: 10/10/17 08:01 10/10/17 08:01 Assess/Plan/Problems-Billing Assessment: Ms. Faulkner is an 82 yo F with a PMH of recent diagnosis of lyme disease, partial nephrectomy, osteoporosis, and hx of CVA who was admitted on 10/08/17 after a mechanical fall at home with a left intertrochanteric hip fracture. - Patient Problems (1) Closed left hip fracture Code(s): S72.002A - FRACTURE OF UNSP PART OF NECK OF LEFT FEMUR, INIT SNOMED Code(s): 873375119 Comment: - S/P ORIF, POD # 1 - Management per orthopedics - Continues to be hypotensive in the perioperative period, plan for 500ml fluid bolus and continue NS @ 75 ml/hr - H/H down, continue to trend - PT/OT to eval and treat (2) Anemia Code(s): D64.9 - ANEMIA, UNSPECIFIED SNOMED Code(s): 107449586 Comment: - Secondary to acute blood loss r/t ORIF and hip fracture - Continue to trend HH (3) Lyme disease Code(s): A69.20 - LYME DISEASE, UNSPECIFIED SNOMED Code(s): 27679923 Comment: - Continue doxycycline, day 16/ (4) H/O partial nephrectomy Code(s): Z90.5 - ACQUIRED ABSENCE OF KIDNEY SNOMED Code(s): 226481317 Comment: - Creatinine normal - Due to renal nephrolithiasis (5) CVA (cerebral vascular accident) Code(s): I63.9 - CEREBRAL INFARCTION, UNSPECIFIED SNOMED Code(s): 871122274 Comment: - Hx noted - Continue aspirin (6) DVT prophylaxis Code(s): CWD2015 - SNOMED Code(s): 011988368 Comment: - Lovenox (7) Full code status Code(s): Z78.9 - OTHER SPECIFIED HEALTH STATUS SNOMED Code(s): 873888949 Status and Disposition: Inpatient. Discharge when medically stable, may need rehab.
[2017-10-10] MEDS: Clindamycin 600 MG IVPREMIX(* 600 MG/50 ML SDV IV SCH ×3 (10:31→21:08)
[2017-10-10] MEDS: Enoxaparin(*) 30 MG/0.3 ML SYR SUBCUT SCH (11:07)
[2017-10-10] MEDS: Artificial Tears* 15 ML BTL BOTH EYES PRN ×2 (13:34→23:21)
[2017-10-10 17:22] LABS: Hematocrit 24 % (35-47); Hemoglobin 8.1 g/dl (12.0-16.0)
[2017-10-10] MEDS: NS 0.9% 1000 ML* 1,000 ML IV SCH (23:01)
[2017-10-11 05:48] LABS: Hematocrit 24 % (35-47)
[2017-10-11] MEDS: traMADol TAB* 50 MG PO PRN (07:27)
[2017-10-11] MEDS: Acetaminophen TAB* 325 MG PO SCH (08:28)
[2017-10-11] MEDS: Aspirin EC TAB* 81 MG TAB.EC PO SCH (08:32)
[2017-10-11] MEDS: PTO:DOXYcycline CAP(*) 100 MG PO SCH (08:32)
[2017-10-11] MEDS: Senna TAB PO SCH (08:32)
[2017-10-11] MEDS: Docusate CAP* 100 MG PO SCH (08:32)
--- NOTE | 2017-10-11 08:50 | PN ---
Progress Note - Progress Note Date of Service: 10/11/17 SOAP: Subjective: 82 yo female s/p ORIF (gamma nail) L hip POD # 2. Patient sitting in chair. Reports one episode of vomiting, no significant nausea now. Minimal pain at rest. Has been OOB with PT/OT. Denies CP, SOB, Nausea, calf pain. Pressures have been low, but patient reports this is baseline. No dizziness or lightheadedness. Objective: Vital Signs Temp 97.4 F 10/11/17 03:46 Pulse 58 10/11/17 03:46 Resp 18 10/11/17 08:28 BP 95/50 10/11/17 03:46 Pulse Ox 96 10/11/17 03:46 Intake & Output 10/10/17 10/11/17 10/11/17 18:59 06:59 18:59 Intake Total 2387 1550 Output Total 650 1000 300 Balance 1737 550 -300 Intake: IV Fluids 2026 990 NS 2026 990 IVPB 160 ABX - CLINDAMYCIN 160 Oral 360 400 Output: Urine 300 1000 300 Emanuel 350 Other: # Bowel Movements 0 Laboratory Results - last 24 hr 10/10/17 10/11/17 17:15 05:30 Hgb 8.1 L 8.0 L Hct 24 L 24 L General: WN, WD, NAD LLE: Dressing C/D/I, incision intact, no erythema, warmth, scant amount of blood on dressing. +DF/PF, calf and thigh soft, nontender. 2+ DP pulse, SITLT. Assessment: 82 yo female s/p ORIF (gamma nail) L hip POD # 2. Plan: - Continue PT/OT - DVT prophylaxis Lovenox per medicine - PMRU peer review today, otherwise hope to discharge to rehab - Pain well controlled - Nausea/vomiting likely from pain medications and antibiotics. Monitor.
--- NOTE | 2017-10-11 11:05 | PN ---
Subjective Date of Service: 10/11/17 Interval History: Patient seen and examined at bedside. Denies fever, chills, shortness of breath , chest discomfort, D. Pt is anxious to get to rehab today. She states that her pain is controlled when not ambulating. Family History: Unchanged from Admission Social History: Unchanged from Admission Past Medical History: Unchanged from Admission Objective Active Medications: Acetaminophen (Tylenol Tab*) 650 mg PO Q4H PRN Reason: FEVER/PAIN Acetaminophen (Tylenol Tab*) 975 mg PO BID ARIEL Aspirin (Aspirin Ec Tab*) 81 mg PO DAILY ARIEL Bisacodyl (Dulcolax Supp*) 10 mg DC DAILY PRN Reason: CONSTIPATION Docusate Sodium (Colace Cap*) 100 mg PO BID ARIEL Doxycycline Hyclate (Vibramycin Cap(*)) 100 mg PO BID ARIEL Enoxaparin Sodium (Lovenox(*)) 30 mg SUBCUT Q24H ARIEL Sodium Chloride (Ns 0.9% 1000 Ml*) 1,000 mls @ 75 mls/hr IV PER RATE ARIEL Magnesium Hydroxide (Milk Of Magnesia Liq*) 30 ml PO Q4H PRN Reason: CONSTIPATION Morphine Sulfate (Morphine Vial*) 2 mg IV Q2H PRN Reason: PAIN Ondansetron HCl (Zofran Inj*) 4 mg IV Q4H PRN Reason: NAUSEA/VOMITING Oxycodone/Acetaminophen (Percocet 5/325 Tab*) 1 tab PO Q4H PRN Reason: PAIN Polyvinyl Alcohol (Polyvinyl Alcohol 1.4% Opth*) 1 drop BOTH EYES Q2H PRN Reason: DRY EYE Senna (Senokot Tab*) 1 tab PO BID ARIEL Tramadol HCl (Ultram*) 50 mg PO Q6H PRN Reason: PAIN Vital Signs - 8 hr 10/11/17 10/11/17 10/11/17 03:46 05:45 07:27 Temperature 97.4 F Pulse Rate 58 Respiratory 16 20 20 Rate Blood Pressure 95/50 (mmHg) O2 Sat by Pulse 96 Oximetry 10/11/17 10/11/17 10/11/17 07:32 08:00 08:28 Temperature 97.9 F Pulse Rate 59 Respiratory 14 18 18 Rate Blood Pressure 111/59 (mmHg) O2 Sat by Pulse 100 96 Oximetry 10/11/17 10:58 Temperature Pulse Rate Respiratory 18 Rate Blood Pressure (mmHg) O2 Sat by Pulse Oximetry Oxygen Devices in Use Now: None Appearance: NAD, sitting up in a chair Ears/Nose/Mouth/Throat: Mucous Membranes Moist Respiratory: Symmetrical Chest Expansion and Respiratory Effort, Clear to Auscultation Cardiovascular: NL Sounds; No Murmurs; No JVD, RRR Abdominal: NL Sounds; No Tenderness; No Distention Neurological: Alert and Oriented x 3, NL Muscle Strength and Tone Lines/Tubes/Other Access: Clean, Dry and Intact Peripheral IV - site benign Nutrition: Taking PO's Result Diagrams: 10/11/17 05:30 10/10/17 08:01 Assess/Plan/Problems-Billing Assessment: Ms. Faulkner is an 82 yo F with a PMH of recent diagnosis of lyme disease, partial nephrectomy, osteoporosis, and hx of CVA who was admitted on 10/08/17 after a mechanical fall at home with a left intertrochanteric hip fracture. - Patient Problems (1) Closed left hip fracture Code(s): S72.002A - FRACTURE OF UNSP PART OF NECK OF LEFT FEMUR, INIT SNOMED Code(s): 600227391 Comment: - S/P ORIF, POD # 2 - Management per orthopedics - H/H down but stable, continue to trend - PT/OT to eval and treat (2) Anemia Code(s): D64.9 - ANEMIA, UNSPECIFIED SNOMED Code(s): 983703268 Comment: - Secondary to acute blood loss r/t ORIF and hip fracture - Stable, continue to trend HH (3) Lyme disease Code(s): A69.20 - LYME DISEASE, UNSPECIFIED SNOMED Code(s): 60542988 Comment: - Continue doxycycline, day 17 (4) H/O partial nephrectomy Code(s): Z90.5 - ACQUIRED ABSENCE OF KIDNEY SNOMED Code(s): 342555971 Comment: - Creatinine normal - Due to renal nephrolithiasis (5) CVA (cerebral vascular accident) Code(s): I63.9 - CEREBRAL INFARCTION, UNSPECIFIED SNOMED Code(s): 317182665 Comment: - Hx noted - Continue aspirin (6) DVT prophylaxis Code(s): PPB2528 - SNOMED Code(s): 888412713 Comment: - Lovenox (7) Full code status Code(s): Z78.9 - OTHER SPECIFIED HEALTH STATUS SNOMED Code(s): 528019488 Status and Disposition: Inpatient. Stable for discharge to [facility] today.
[2017-10-11] MEDS: Enoxaparin(*) 30 MG/0.3 ML SYR SUBCUT SCH (11:17)
[2017-10-11] MEDS: Ondansetron INJ* 2 MG/ML VIAL IV PRN (11:22)
[2017-10-11 11:59] VITALS: BP 110/54
--- NOTE | 2017-10-12 04:46 | DS ---
CC: Dr. Liz Rollins; Dr. Cindy Wiggins * DISCHARGE SUMMARY: DATE OF ADMISSION: 10/08/17 DATE OF DISCHARGE: 10/11/17 ATTENDING PHYSICIAN: Dr. Indira Browne * (dictated by Kimberley Starks NP). PRIMARY CARE PROVIDER: Dr. Liz Rollins. PRIMARY DIAGNOSES: 1. Left intertrochanteric hip fracture, status post ORIF. 2. Hypotension. 3. Acute blood loss anemia. SECONDARY DIAGNOSES: 1. Lyme disease. 2. History of cerebrovascular accident. 3. Osteoporosis. CONSULTATIONS WHILE IN THE HOSPITAL: Dr. Cindy Wiggins with Orthopedic Surgery. PROCEDURES WHILE IN THE HOSPITAL: Status post ORIF of the left hip on 10/09/17. STUDIES WHILE IN THE HOSPITAL: 1. Pelvis CT on 10/08/17. Radiologist's impression: Intertrochanteric fracture of the left hip. 2. Left hip and pelvis x-ray on 10/08/17, intertrochanteric hip fracture. 3. Left femur x-ray on 10/08/17. Radiologist's impression: Intertrochanteric fracture of the left hip with medial angulation. 4. Chest x-ray on 10/08/17. Radiologist's impression: No active cardiopulmonary disease is noted. MEDICATIONS: Home medications: 1. Vitamin D3 1000 units oral daily. 2. Tramadol 25 to 50 mg oral twice daily as needed for pain. 3. Doxycycline 100 mg oral twice daily. 4. Boniva 150 mg oral monthly. 5. Aspirin 81 mg oral daily. Hospital medications: 1. Acetaminophen 650 mg oral every 4 hours as needed for fever or pain. 2. Acetaminophen 975 mg oral twice daily. 3. Aspirin 81 mg oral daily. 4. Dulcolax suppository 10 mg per rectum daily as needed for constipation. 5. Colace 100 mg oral twice daily. 6. Doxycycline 100 mg oral twice daily. 7. Lovenox 30 mg subcutaneous every 24 hours. 8. Sodium chloride at 75 mL an hour intravenously. 9. Milk of magnesia 30 mg oral every 4 hours as need for constipation. 10. Morphine sulfate 2 mg IV every 2 hours as needed for pain. 11. Zofran 4 mg IV every 4 hours as needed for nausea or vomiting. 12. Percocet 5/325 one tablet oral every 4 hours as needed for pain. 13. Artificial Tears 1 drop to both eyes every 2 hours as needed for dry eye. 14. Senna 1 tablet oral twice daily. 15. Tramadol 50 mg oral every 6 hours as needed for pain. HISTORY OF PRESENT ILLNESS\HOSPITAL COURSE: Ms. Faulkner is an 82-year-old female with past medical history significant for cerebrovascular accident, recent diagnosis of Lyme disease and osteoporosis who was outside while walking and was having difficulty seeing due to the sun and tripped over a wooden block following on to her left side. The patient was able to drag herself to a phone in order to call her son, after which she was brought to the emergency room for further evaluation. While in the emergency room, the patient had imaging showing a left intertrochanteric fracture. Hospitalists were asked to evaluate the patient for admission. While in the hospital, the patient was seen in consultation by Dr. Cindy Wiggins. She was taken to the operating room on 10/09/17 and underwent an open reduction internal fixation of the left intertrochanteric hip fracture with a short gamma nail. Postoperatively, the patient has been doing well. She has had labile blood pressures. It does not appear at baseline that she has a very high blood pressures. I suspect her baseline is in the low 100s. She received fluid boluses. Overall, she was doing well, she was asymptomatic. She was found to have acute blood loss anemia secondary to her hip fracture and surgery. She was asymptomatic and did not receive a transfusion. She was continued on her doxycycline for her Lyme disease. She had physical therapy and occupational therapy and it was felt she could benefit from rehab. Ms. Faulkner is stable for discharge to [facility] today. Vital signs are as follows: Temperature 97.7, heart rate 58, respiratory rate 16, O2 sat 100% on room air, blood pressure 110/54. DISCHARGE PLAN: Ms. Faulkner will be discharged to [facility]. Activity as tolerated. She should be on a regular diet. In regards to her left hip fracture, she should continue physical therapy and occupational therapy. She should have her montse in place until 10/23/17, at which time, she should also have a followup with either Dr. Wiggins or one of the physician assistants in the office. She should have a daily dry dressing change to her left hip incision. For the patient's Lyme disease, she has 4 more days left of her course of doxycycline that should be continued. For her acute blood loss anemia, if she becomes symptomatic, I recommend considering a blood transfusion but at the time of discharge, it was felt that she did not need a blood transfusion. She should be resumed on her other usual home medications. I defer further management to the forecast analyst while the patient is on PMRU. She should follow up with Dr. Rollins at discharge, her primary care provider. This is a summarized report of a complex medical history and hospital stay. For further details, please see the entire medical record. TIME SPENT: Time for this discharge was approximately 50 minutes, greater than half of that was spent with the patient discussing discharge plans and instructions. CONDITION ON DISCHARGE: Stable. Reviewed by COOPER DAVE 10/14/17 1839 [id number]/[facility] #: [id number]
== END 2017-10-11 12:45 | DRG 481 ==
LOC: ED 16:49 → SSU 20:58
PROVIDERS: ADMIT Internal Medicine; ATTEND Internal Medicine
PROC: 0QS704Z Reposition Left Upper Femur with Internal Fixation Device, Open Approach (ICD-10-PCS; principal; 2017-10-08)
DX: S72.142A Displaced intertrochanteric fracture of left femur, initial encounter for closed fracture (principal); A69.20 Lyme disease, unspecified; D62 Acute posthemorrhagic anemia; M48.02 Spinal stenosis, cervical region; W01.0XXA Fall on same level from slipping, tripping and stumbling without subsequent striking against object, initial encounter; M19.90 Unspecified osteoarthritis, unspecified site; M81.0 Age-related osteoporosis without current pathological fracture; I83.90 Asymptomatic varicose veins of unspecified lower extremity; R40.2362 Coma scale, best motor response, obeys commands, at arrival to emergency department; R40.2252 Coma scale, best verbal response, oriented, at arrival to emergency department; R40.2142 Coma scale, eyes open, spontaneous, at arrival to emergency department; M85.88 Other specified disorders of bone density and structure, other site; Z96.653 Presence of artificial knee joint, bilateral; H26.9 Unspecified cataract; R00.1 Bradycardia, unspecified; E53.9 Vitamin B deficiency, unspecified; E55.9 Vitamin D deficiency, unspecified; M21.40 Flat foot [pes planus] (acquired), unspecified foot; Z88.1 Allergy status to other antibiotic agents; Z88.5 Allergy status to narcotic agent; Z88.2 Allergy status to sulfonamides; Y92.009 Unspecified place in unspecified non-institutional (private) residence as the place of occurrence of the external cause; Z87.442 Personal history of urinary calculi; Z87.891 Personal history of nicotine dependence; Z86.73 Personal history of transient ischemic attack (TIA), and cerebral infarction without residual deficits; Z90.710 Acquired absence of both cervix and uterus; Z72.89 Other problems related to lifestyle; Z82.49 Family history of ischemic heart disease and other diseases of the circulatory system; Z90.5 Acquired absence of kidney; Z82.61 Family history of arthritis; R42 Dizziness and giddiness
CPT/HCPCS: 36415; 71045; 72192; 76001; 80048; 80053; 81003; 83605; 84484; 85014; 85018; 85025; 85610; 85730; 86850; 86900; 86901; 93005; 99284; A9270-GY; C1713; C1776; G8978-GP-CL; G8979-GP-CI; G8987-GO-CL; G8988-GO-CI; J1100; J1170; J1644; J1650; J1885; J2250; J2270; J2405; J2704; J3010

== ENCOUNTER 2017-10-11 11:26 | Inpatient (IN) | payer MEDICARE ==
[2017-10-11] MEDS ORDERED: Acetaminophen TAB* 325 MG PO PRN (12:19)
[2017-10-11] MEDS ORDERED: Bisacodyl SUPP* 10 MG SUPP PR PRN (12:19)
[2017-10-11] MEDS ORDERED: oxyCODONE/Acetamin 5/325 MG* TAB PO PRN (12:30)
[2017-10-11] MEDS ORDERED: Ondansetron INJ* 2 MG/ML VIAL IV PRN (12:32)
[2017-10-11] MEDS: Enoxaparin(*) 30 MG/0.3 ML SYR SUBCUT SCH (14:10)
--- NOTE | 2017-10-11 15:00 | HP ---
CC: Dr. Herron; Dr. Wiggins. HISTORY AND PHYSICAL: DATE OF ADMISSION: 10/11/17 PRIMARY CARE PROVIDER: Dr. Rollins. ORTHOPEDIC SURGEON: Dr. Wiggins. REASON FOR ADMISSION: Left hip fracture. HISTORY OF PRESENT ILLNESS: This is an 82-year-old woman who was admitted on after a fall when she was blinded by the sun and tripped on a wooden block. She was brought to the emergency room and was found to have a left intratrochanteric hip fracture. After evaluation by the hospitalist service, she was taken to the OR by Dr. Wiggins on 10/09/17 for ORIF. Postoperatively, she has weightbearing as tolerated precautions in the left lower extremity and has been put on Lovenox for DVT prophylaxis. She recently was diagnosed with Lyme disease and had been on doxycycline already for a few weeks. Today is day 17 out of 21. She has tolerated this medication well. Postoperatively, however , she has had hypotension. For the better part of yesterday, her systolic blood pressure was in the 80s to low 90s. She received IV fluids and today it is much improved. She is noted to have acute postoperative anemia, but her hemoglobin has stayed stable at 8 and hematocrit at 24. She, however, today has felt somewhat nauseated and had a small amount of emesis. She took Percocet this morning, which she has not tolerated very well in the past. She has used tramadol half a tablet at a time at home on an as needed basis. She tolerates this better, but a whole tablet makes her a little bit sleepy. Prior to admission, she was independent with all mobility and ADLs and not using any assistive devices. With physical therapy, she is requiring maximum assistance for bed mobility, and a moderate amount of assistance x2 for transfers. With occupational therapy, she required a minimal amount of assistance for upper body tasks, but total assist x2 for lower body dressing. She requires a maximum assistance x2 for bathing and total assistance x2 for toileting. PAST MEDICAL HISTORY: 1. She has a history of prior stroke in 2014 and her only deficit is sometimes on the phone or if she gets anxious she may have some difficulty finding words. 2. Lyme disease, currently on treatment. 3. Osteoporosis. 4. Osteoarthritis affecting multiple joints including her hands and knees. 5. She is status post bilateral total knee replacements. 6. Status post left nephrectomy for nephrolithiasis. 7. History of vitamin B deficiency. 8. Vitamin D deficiency. 9. Varicose veins. 10. Status post hysterectomy. 11. Status post bladder sling. MEDICATIONS: 1. Doxycycline 100 mg b.i.d. 2. Aspirin 81 mg daily. 3. Boniva 150 mg q. month, currently on hold. 4. Tramadol currently 50 mg q.6 hours p.r.n. 5. Vitamin D of 1000 international units daily. 6. Tylenol 975 mg scheduled b.i.d. and then 650 mg q.4 hours p.r.n. pain. 7. Colace 100 mg b.i.d. 8. Lovenox 30 mg daily. 9. Milk of magnesia p.r.n. 10. Zofran p.r.n. 11. Senna will be changed to 2 tablets at bedtime. 12. Percocet p.r.n. ALLERGIES: CODEINE, CEPHALOSPORINS, PERCOCET, DARVOCET, VICODIN, and SULFA. FAMILY HISTORY: Mother had a brain tumor. Father had coronary artery disease and arthritis. SOCIAL HISTORY: She lives in an apartment downstairs and her son is upstairs. She quit smoking more than 40 years ago. She typically has one glass of wine per day. There are three steps to enter her home and then it is on one level. There is a spiral staircase in her bedroom up to where her bed is, but she believes the bed could be put at the base of that staircase if needed. She is a retired teacher of [employer]. Fine arts are her hobby. REVIEW OF SYSTEMS: See history of present illness and past medical history. Remainder of 13-systems review is completed. No other significant findings. PHYSICAL EXAMINATION GENERAL: Well-developed, well-nourished, appearing younger than stated age. Mental status appeared alert and oriented x3. VITAL SIGNS: Temperature 98, pulse 60, blood pressure 109/56, saturation 96% on room air, respiration rate 14. HEENT: Normocephalic and atraumatic. Oropharynx clear. She has implants on her bottom teeth and dentures on the top. Moist mucous membranes. NECK: Supple with no lymphadenopathy. LUNGS: Clear to auscultation bilaterally. HEART: Regular, rate, and rhythm. ABDOMEN: Active bowel sounds, soft, nontender, and nondistended. EXTREMITIES: No clubbing or cyanosis. There is some swelling around her left thigh as expected postoperatively. 2+ pedal pulses. MUSCULOSKELETAL EXAM: She has arthritic changes of both of her hands. She has functional range of motion in all of her major joints with limited testing of the left hip and knee secondary to her recent surgery. NEUROLOGIC: Cranial nerves II through XII intact. Upper and lower extremities motor 5/5 bilaterally. Normal sensation except for limited testing of the left hip and knee secondary to recent surgery. LABORATORY DATA: Today, her hemoglobin is 8, hematocrit 24. Yesterday, sodium 137, potassium 4, BUN 11, creatinine 0.6, calcium slightly low at 7.7. IMPRESSION: An 82-year-old woman status post left hip fracture and open reduction internal fixation. She will be admitted to [facility] so she can be return to independent living. She requires acute inpatient rehabilitation due to active medical comorbidities of post-operative hypotension that has been managed with IV fluids. If this persists she may need additional consultation with a specialist. She also has acute post-operative anemia which needs ongoing monitoring and potential transfusion. Lastly, she requires this level of care as her pain medications will likely need adjustment as I suspect nausea and vomiting is secondary to percocet and she has multiple pain medication intolerances. PLAN/RECOMMENDATIONS: 1. Hip fracture, continue weightbearing as tolerated to the left lower extremity. She will need followup with Dr. Wiggins. Her dressing will be changed regularly. For pain treatment, we will continue primarily with tramadol first and scheduled Tylenol and use Percocet only if necessary and if she tolerates it. 2. Nausea. Limit use of Percocet. Zofran p.r.n. 3. History of hypotension postoperatively. Monitor her vital signs and need for additional IV fluids. Encourage p.o. fluids. Hep-lock IV. 4. Acute postoperative anemia. Continue monitoring her CBC. 5. DVT prophylaxis. Continue with Lovenox. She will probably need teaching to do this at home prior to discharge. 6. Osteoporosis. Eventually, she will restart her monthly Boniva. 7. Lyme disease. Continue with her doxycycline treatment, which is today day 17 on . 18. History of stroke, continue with aspirin. 19. Advanced directives, she is a full code, but says at home she has a MOLST that had been filled out with contingencies. She will ask her son to bring that in. Her son is her health care proxy if she cannot make decisions for herself. ESTIMATED LENGTH OF STAY: Two weeks, then return to home. This will be discussed further with the team in the disciplinary plan of care meeting. [id number]/CPS #: [id number] AMI
[2017-10-11] MEDS: Docusate CAP* 100 MG PO SCH (21:13)
[2017-10-11] MEDS: Senna TAB PO SCH (21:13)
[2017-10-11] MEDS: DOXYcycline CAP(*) 100 MG PO SCH (21:14)
[2017-10-11] MEDS: traMADol TAB* 50 MG PO PRN (21:14)
[2017-10-11] MEDS: Acetaminophen TAB* 325 MG PO SCH (22:15)
[2017-10-11] MEDS: [UNRECOGNIZED DRUG - OTHER] PO PRN (22:17)
[2017-10-11] MEDS: Artificial Tear OPHTH.OINT* 3.5 GM BOTH EYES PRN (23:46)
[2017-10-12] MEDS: traMADol TAB* 50 MG PO PRN ×2 (03:32→10:30)
[2017-10-12] MEDS: Polyethylene Glycol 3350* 17 GM PACKET PO PRN (06:27)
[2017-10-12 06:48] LABS: ABS Basophils 0.1 10^3/ul (0-0.2); ABS Eosinophils 0.2 10^3/ul (0-0.6); ABS Lymphocytes 1.6 10^3/ul (1.0-4.8); ABS Monocytes 0.6 10^3/ul (0-0.8); ABS Neutrophils 3.5 10^3/ul (1.5-7.7); ABS Nucleated RBC 0 10^3/ul; Eosinophil % 2.9 % (0-6); Hematocrit 24 % (35-47); Hemoglobin 8.5 g/dl (12.0-16.0); Lymphocyte % 26.5 % (25-47); Mean Corpuscular HGB Conc 35 g/dl (31-36); Mean Corpuscular Hemoglobin 32 pg (27-31); Mean Corpuscular Volume 93 fL (80-97); Mean Platelet Volume 9.8 um3 (7.4-10.4); Nucleated Red Blood Cells % 0; Platelet Count 138 10^3/ul (150-450); Red Blood Count 2.62 10^6/ul (4.00-5.40); Red Cell Distribution Width 15 % (10.5-15); White Blood Count 5.9 10^3/ul (3.5-10.8)
[2017-10-12 07:06] LABS: EGFR Non-African American 90.5 (>60)
[2017-10-12] MEDS: Artificial Tear OPHTH.OINT* 3.5 GM BOTH EYES PRN ×2 (08:08→23:21)
--- NOTE | 2017-10-12 08:17 | PN ---
Progress Note Date of Service: 10/12/17 Note: ALANA LOMBARDO was visited. Nursing and therapy notes read and reviewed. She felt some chest "tightness" with a deep breath which improved after using the incentive spirometer. She has not been using it regularly, but now knows to. No shortness of breath or abodminal pain. No nausea or vomiting, but has not used percocet since yesterday morning. She says she initially was prescribed doxycycline for 21 days but then was given a rx for an additional 7 days since she had waited so long for treatment. Her symptoms from the original infection are resolved (fatigue and myalgias). Current Medications: Active Medications Generic Name Dose Route Start Last Admin Trade Name Freq PRN Reason Stop Dose Admin Acetaminophen 975 mg 10/11/17 21:00 10/11/17 22:15 Tylenol Tab* PO Not Given BID ARIEL Acetaminophen 650 mg 10/11/17 21:00 Tylenol Tab* PO BID PRN . Artificial Tears 1 applic 10/11/17 12:31 10/12/17 08:08 Lacrilube Oint* BOTH EYES 1 drop Q2H PRN Administration DRY EYE Aspirin 81 mg 10/12/17 09:00 Aspirin Ec Tab* PO DAILY ARIEL Bisacodyl 10 mg 10/11/17 12:19 Dulcolax Supp* DE DAILY PRN CONSTIPATION Cholecalciferol 1,000 units 10/12/17 09:00 Vitamin D Tab* PO DAILY ARIEL Docusate Sodium 100 mg 10/11/17 21:00 10/11/17 21:13 Colace Cap* PO 100 mg BID ARIEL Administration Doxycycline Hyclate 100 mg 10/11/17 21:00 10/11/17 21:14 Vibramycin Cap(*) PO 100 mg BID AREIL Administration Enoxaparin Sodium 30 mg 10/11/17 13:00 10/11/17 14:10 Lovenox(*) SUBCUT 30 mg Q24H ARIEL Administration Pto:*Act [place] 1 admin 10/11/17 18:36 10/11/17 22:17 PO 1 admin Q1H PRN Administration DRY MOUTH Ondansetron HCl 4 mg 10/11/17 12:32 Zofran Inj* IV Q4H PRN NAUSEA Oxycodone/Acetaminophen 1 tab 10/11/17 12:30 Percocet 5/325 Tab* PO Q4H PRN PAIN Polyethylene Glycol/Electrolytes 17 gm 10/11/17 12:29 10/12/17 06:27 Miralax* PO 17 gm DAILY PRN Administration CONSTIPATION Senna 2 tab 10/11/17 21:00 10/11/17 21:13 Senokot Tab* PO 2 tab BEDTIME ARIEL Administration Tramadol HCl 50 mg 10/11/17 12:31 10/12/17 03:32 Ultram* PO 50 mg Q6H PRN Administration pain - use first Vital Signs: Vital Signs Temp Pulse Resp BP Pulse Ox 98.3 F 66 18 106/56 98 10/12/17 06:24 10/12/17 06:24 10/12/17 08:00 10/12/17 06:24 10/12/17 08:00 Lab Results: Laboratory Results - last 24 hr 10/12/17 10/12/17 06:32 06:32 WBC 5.9 RBC 2.62 L Hgb 8.5 L Hct 24 L MCV 93 MCH 32 H MCHC 35 RDW 15 Plt Count 138 L MPV 9.8 Neut % (Auto) 59.4 Lymph % (Auto) 26.5 [place] % (Auto) 10.3 H Eos % (Auto) 2.9 Baso % (Auto) 0.9 Absolute Neuts (auto) 3.5 Absolute Lymphs (auto) 1.6 Absolute Monos (auto) 0.6 Absolute Eos (auto) 0.2 Absolute Basos (auto) 0.1 Absolute Nucleated RBC 0 Nucleated RBC % 0 Sodium 138 Potassium 4.1 Chloride 109 Carbon Dioxide 25 Anion Gap 4 BUN 11 Creatinine 0.63 Est GFR ( Amer) 109.5 Est GFR (Non-Af Amer) 90.5 BUN/Creatinine Ratio 17.5 Glucose 85 Calcium 8.1 L Total Bilirubin 0.50 AST 17 ALT 16 Alkaline Phosphatase 55 Total Protein 5.1 L Albumin 2.6 L Globulin 2.5 Albumin/Globulin Ratio 1.0 Exam: GEN: no acute distress. alert and appropriate. LUNGS: clear bilaterally. CV: regular rate and rhythm ABD: + bowel sounds, soft, non-tender and non-distended EXT: expected swelling at left thigh. Left hip incisions with scant/minimal serosanguious drainage. No pedal edema. Assessment/Plan: IMPRESSION: 82-year-old woman status post left hip fracture and open reduction internal fixation. PLAN # Hip fracture, continue weightbearing as tolerated LLE. She will need followup with Dr. Wiggins. Her dressing will be changed regularly. Continue primarily with tramadol first and scheduled Tylenol and use Percocet only if necessary and if she tolerates it. # Nausea. Limit use of Percocet. Zofran p.r.n. # History of hypotension postoperatively. Monitor her vital signs and need for additional IV fluids. Encourage p.o. fluids. Hep-lock IV may d/c if BP is good today with therapies. # Acute postoperative anemia. Stable. Continue monitoring her CBC. # Mild thrombocyopenia. Recheck CBC on Saturday since she is on Lovenox. # DVT prophylaxis. Continue with Lovenox. She will probably need teaching to do this at home prior to discharge. # Osteoporosis. Eventually, she will restart her monthly Boniva. # Lyme disease. Continue with her doxycycline treatment, which is today day 18 . # History of stroke, continue with aspirin. # Advanced directives: full code, but says at home she has a MOLST that had been filled out with contingencies. She will ask her son to bring that in. Her son is her health care proxy if she cannot make decisions for herself. # Estmated LOS: Two weeks. IPOC today. 10/12/17 09:20
[2017-10-12] MEDS: Acetaminophen TAB* 325 MG PO SCH ×3 (08:41→19:55)
[2017-10-12] MEDS: [UNRECOGNIZED DRUG - OTHER] PO PRN ×2 (08:43→23:21)
[2017-10-12] MEDS: Aspirin EC TAB* 81 MG TAB.EC PO SCH (09:18)
[2017-10-12] MEDS: DOXYcycline CAP(*) 100 MG PO SCH ×2 (09:18→21:19)
[2017-10-12] MEDS: Docusate CAP* 100 MG PO SCH ×2 (09:18→21:18)
[2017-10-12] MEDS: Cholecalciferol TAB* 1000 UNITS PO SCH (09:18)
--- NOTE | 2017-10-12 09:29 | PMRUTEAM ---
PMRU: Team Meeting Current Status: Nursing: Current Status Skin Deviations [right forearm Wound ] Skin Deviations [Left Elbow] Abrasion Skin Deviations [Left Hip] Incision Skin Deviation Description [ from fall at home, scabbed, surrounding erythema right forearm] Skin Deviation Description [ from fall at home, scabbed Left Elbow] Skin Deviation Description [ well approximated, montse intact Left Hip] Physical Therapy: Current Status Bed Mobility Assistance mod A Transfer Moblility Assistance min A Transfer/Bed Mobility Rolling Walker Recommended Devices Ambulation Assistance min A 5ft Ambulation Assistive Devices Rolling Walker Stairs Assistance not tested Stairs Recommended Devices Two Rails Number of Stairs 5 Occupational Therapy: Current Status Upper Body Dressing Supervision Lower Body Dressing Max Asst,2 Person Assist Bathing Mod Assist,2 Person Assist Toileting Mod Assist,2 Person Assist Toilet Transfer Mod Assist Shower Transfer Mod Assist Eating Independent Social Work: Current Status Discharge Plan return home with home care svs and family support Potential for Family Training pt's family and friends are supportive Anticipated Discharge Home Destination Discharge With home care svs and support from family and friends Goals: Physical Therapy: Initial Goals Bed Mobility Assistance Independent Transfer Mobility Assistance Independent Transfer/Bed Mobility Rolling Walker Recommended Devices Ambulation Independent Ambulation Recommended Devices Rolling Walker Ambulation Distance 150 Stairs Assistance Independent Stair Recommended Devices One Rail Number of Stairs 5 Home Exercise Program Independent Assistance Occupational Therapy: Initial Goals Goals to be Completed in (Days 10-14 days ) Upper Body Bathing Routine Modified Independent with Lower Body Bathing Routine Modified Independent with Upper Body Dressing Routine Independent Lower Body Dressing Routine Modified Independent with Toilet Hygeine and Clothing Modified Independent with Management Routine Toilet Transfer Routine Modified Independent with Step-In Shower Transfer Modified Independent with Routine Functional Transfers for ADL Modified Independent with Grooming Routine Independent Feeding Routine Independent Social Work: Goals Discharge Plan return home with home care svs and family support Potential for Family Training pt's family and friends are supportive Anticipated Discharge Home Destination Discharge With home care svs and support from family and friends Care Plan: See nursing assessments and plan Self administration of medications including Lovenox for DVT ppx Maintain appropriate hydration Education on bladder and bowel management. Educate on care of wound as needed. Medicine Note: Length of Stay: [2 weeks] Anticipated Discharge Destination: Home Tentative Discharge Date: [10/25/17] Discharged to: [home]
[2017-10-12] MEDS: Enoxaparin(*) 30 MG/0.3 ML SYR SUBCUT SCH (12:52)
[2017-10-12] MEDS: Senna TAB PO SCH (21:19)
[2017-10-13] MEDS: Methocarbamol TAB* 500 MG PO PRN ×2 (03:37→11:35)
[2017-10-13] MEDS: [UNRECOGNIZED DRUG - OTHER] PO PRN (03:50)
[2017-10-13] MEDS: Cholecalciferol TAB* 1000 UNITS PO SCH (08:33)
[2017-10-13] MEDS: Docusate CAP* 100 MG PO SCH ×2 (08:33→21:41)
[2017-10-13] MEDS: Aspirin EC TAB* 81 MG TAB.EC PO SCH (08:33)
[2017-10-13] MEDS: Acetaminophen TAB* 325 MG PO SCH ×2 (08:33→22:39)
[2017-10-13] MEDS: Artificial Tear OPHTH.OINT* 3.5 GM BOTH EYES PRN (08:34)
[2017-10-13] MEDS: DOXYcycline CAP(*) 100 MG PO SCH ×2 (08:47→21:23)
[2017-10-13] MEDS: Polyethylene Glycol 3350* 17 GM PACKET PO PRN (08:53)
--- NOTE | 2017-10-13 09:43 | PN ---
Progress Note Date of Service: 10/13/17 Note: ALANA LOMBARDO was visited. Nursing and therapy notes read and reviewed. I was called last night for methocarbamol order for spasms. Patient reports last night having 2 "panic attacks" when she was a little delusional that something was cutting her leg. She now thinks it was the tape from her incision and had some leg spasms. She has had restless leg syndrome, which was worse after TKR in the past. She only used tramadol at home and is not interested in adding another medication at this time. No chest pain, shortness of breath or abdominal pain. She is using her IS. No BM since 10/09. Current Medications: Active Medications Generic Name Dose Route Start Last Admin Trade Name Freq PRN Reason Stop Dose Admin Acetaminophen 975 mg 10/11/17 21:00 10/13/17 08:33 Tylenol Tab* PO 975 mg BID ARIEL Administration Acetaminophen 650 mg 10/11/17 21:00 Tylenol Tab* PO BID PRN . Artificial Tears 1 applic 10/11/17 12:31 10/13/17 08:34 Lacrilube Oint* BOTH EYES 1 drop Q2H PRN Administration DRY EYE Aspirin 81 mg 10/12/17 09:00 10/13/17 08:33 Aspirin Ec Tab* PO 81 mg DAILY ARIEL Administration Bisacodyl 10 mg 10/11/17 12:19 Dulcolax Supp* [place] DAILY PRN CONSTIPATION Cholecalciferol 1,000 units 10/12/17 09:00 10/13/17 08:33 Vitamin D Tab* PO 1,000 units DAILY ARIEL Administration Docusate Sodium 100 mg 10/11/17 21:00 10/13/17 08:33 Colace Cap* PO 100 mg BID ARIEL Administration Doxycycline Hyclate 100 mg 10/11/17 21:00 10/13/17 08:47 Vibramycin Cap(*) PO 100 mg BID ARIEL Administration Enoxaparin Sodium 30 mg 10/11/17 13:00 10/12/17 12:52 Lovenox(*) SUBCUT 30 mg Q24H ARIEL Administration Methocarbamol 500 mg 10/13/17 03:11 10/13/17 03:37 Robaxin Tab* PO 500 mg Q6H PRN Administration SPASMS Pto:*Act [place] 1 admin 10/11/17 18:36 10/13/17 03:50 PO 1 admin Q1H PRN Administration DRY MOUTH Ondansetron HCl 4 mg 10/13/17 08:40 Zofran Odt Tab* SL Q6H PRN NAUSEA/VOMITING Polyethylene Glycol/Electrolytes 17 gm 10/11/17 12:29 10/13/17 08:53 Miralax* PO 17 gm DAILY PRN Administration CONSTIPATION Senna 2 tab 10/11/17 21:00 10/12/17 21:19 Senokot Tab* PO 2 tab BEDTIME ARIEL Administration Tramadol HCl 50 mg 10/11/17 12:31 10/12/17 10:30 Ultram* PO 50 mg Q6H PRN Administration pain - use first Vital Signs: Vital Signs Temp Pulse Resp BP Pulse Ox 98.1 F 62 18 110/55 97 10/13/17 05:31 10/13/17 05:31 10/13/17 05:31 10/13/17 05:31 10/13/17 05:31 Exam: GEN: no acute distress. alert and appropriate. LUNGS: clear bilaterally. CV: regular rate and rhythm ABD: + bowel sounds, soft, non-tender and non-distended EXT: expected swelling at left thigh. Left hip dressing with scant/minimal serosanguious drainage at middle incision. No pedal edema. Assessment/Plan: IMPRESSION: 82-year-old woman status post left hip fracture and open reduction internal fixation. PLAN # Hip fracture: continue weightbearing as tolerated LLE. She will need follow up with Dr. Wiggins. Her dressing will be changed regularly. Continue with tramadol prn and scheduled Tylenol. Methocarbamol prn. # Nausea: Zofran p.r.n. # History of hypotension postoperatively: VS stable yesterday. d/c IV. Encourage p.o. fluids. # Acute postoperative anemia. Stable. Continue monitoring her CBC. # Mild thrombocyopenia. Recheck CBC on Saturday since she is on Lovenox. # DVT prophylaxis. Continue with Lovenox. She will probably need teaching to do this at home prior to discharge. # Osteoporosis. Eventually, she will restart her monthly Boniva. # Lyme disease. Continue with her doxycycline treatment, which is today day . # History of stroke, continue with aspirin. # Advanced directives: full code. Her son is bringing in her MOLST from home that has contingencies. Her son is her health care proxy if she cannot make decisions for herself. # Estmated LOS: anticipate 10/25. Has managed medicare through [employer] who will need update. 10/13/17 09:36
[2017-10-13] MEDS: traMADol TAB* 50 MG PO PRN ×2 (12:14→21:22)
[2017-10-13] MEDS: Enoxaparin(*) 30 MG/0.3 ML SYR SUBCUT SCH (13:49)
[2017-10-13] MEDS: Senna TAB PO SCH (21:22)
[2017-10-13] MEDS: Ondansetron ODT TAB* 4 MG SL PRN (22:42)
[2017-10-14] MEDS: [UNRECOGNIZED DRUG - OTHER] PO PRN ×3 (00:12→19:06)
[2017-10-14] MEDS: Artificial Tear OPHTH.OINT* 3.5 GM BOTH EYES PRN ×2 (02:17→10:33)
[2017-10-14] MEDS: Acetaminophen TAB* 325 MG PO PRN (05:37)
[2017-10-14 07:06] LABS: Hematocrit 24 % (35-47); Hemoglobin 8.4 g/dl (12.0-16.0); Mean Corpuscular HGB Conc 35 g/dl (31-36); Mean Corpuscular Hemoglobin 32 pg (27-31); Mean Corpuscular Volume 92 fL (80-97); Mean Platelet Volume 9.5 um3 (7.4-10.4); Platelet Count 180 10^3/ul (150-450); Red Blood Count 2.63 10^6/ul (4.00-5.40); Red Cell Distribution Width 14 % (10.5-15); White Blood Count 5.3 10^3/ul (3.5-10.8)
[2017-10-14 07:27] LABS: ABS Basophils 0 10^3/ul (0-0.2); ABS Eosinophils 0.3 10^3/ul (0-0.6); ABS Lymphocytes 1.4 10^3/ul (1.0-4.8); ABS Monocytes 0.7 10^3/ul (0-0.8); ABS Nucleated RBC 0 10^3/ul; Lymphocyte % 25.9 % (25-47); Nucleated Red Blood Cells % 0
[2017-10-14] MEDS: Acetaminophen TAB* 325 MG PO SCH ×2 (08:19→20:54)
[2017-10-14] MEDS: Methocarbamol TAB* 500 MG PO PRN (08:19)
[2017-10-14] MEDS: Aspirin EC TAB* 81 MG TAB.EC PO SCH (08:20)
[2017-10-14] MEDS: Cholecalciferol TAB* 1000 UNITS PO SCH (08:20)
[2017-10-14] MEDS: Docusate CAP* 100 MG PO SCH ×2 (08:20→20:53)
[2017-10-14] MEDS: DOXYcycline CAP(*) 100 MG PO SCH ×2 (08:23→20:53)
[2017-10-14] MEDS: Polyethylene Glycol 3350* 17 GM PACKET PO SCH (08:38)
[2017-10-14] MEDS: Ondansetron ODT TAB* 4 MG SL PRN (09:59)
[2017-10-14] MEDS: Enoxaparin(*) 30 MG/0.3 ML SYR SUBCUT SCH (12:12)
[2017-10-14] MEDS: traMADol TAB* 50 MG PO PRN ×2 (13:12→20:54)
--- NOTE | 2017-10-14 17:22 | PN ---
Progress Note Date of Service: 10/14/17 Note: ALANA LOMBARDO was visited. Therapy notes read and reviewed. She has pain in her left hip when she tries to exercise. Some swelling in the left thigh Current Medications: Active Medications Generic Name Dose Route Start Last Admin Trade Name Freq PRN Reason Stop Dose Admin Acetaminophen 975 mg 10/11/17 21:00 10/14/17 08:19 Tylenol Tab* PO 975 mg BID ARIEL Administration Acetaminophen 650 mg 10/11/17 21:00 10/14/17 05:37 Tylenol Tab* PO 650 mg BID PRN Administration . Artificial Tears 1 applic 10/11/17 12:31 10/14/17 10:33 Lacrilube Oint* BOTH EYES 1 drop Q2H PRN Administration DRY EYE Aspirin 81 mg 10/12/17 09:00 10/14/17 08:20 Aspirin Ec Tab* PO 81 mg DAILY ARIEL Administration Bisacodyl 10 mg 10/11/17 12:19 10/13/17 10:00 Dulcolax Supp* [place] 10 mg DAILY PRN Administration CONSTIPATION Cholecalciferol 1,000 units 10/12/17 09:00 10/14/17 08:20 Vitamin D Tab* PO 1,000 units DAILY ARIEL Administration Docusate Sodium 100 mg 10/11/17 21:00 10/14/17 08:20 Colace Cap* PO 100 mg BID ARIEL Administration Doxycycline Hyclate 100 mg 10/11/17 21:00 10/14/17 08:23 Vibramycin Cap(*) PO 100 mg BID ARIEL Administration Enoxaparin Sodium 30 mg 10/11/17 13:00 10/14/17 12:12 Lovenox(*) SUBCUT 30 mg Q24H ARIEL Administration Lactulose 30 ml 10/13/17 09:44 Lactulose* PO QID PRN CONSTIPATION Methocarbamol 500 mg 10/13/17 03:11 10/14/17 08:19 Robaxin Tab* PO 500 mg Q6H PRN Administration SPASMS Pto:*Act [place] 1 admin 10/11/17 18:36 10/14/17 02:18 PO 1 admin Q1H PRN Administration DRY MOUTH Ondansetron HCl 4 mg 10/13/17 08:40 10/14/17 09:59 Zofran Odt Tab* SL 4 mg Q6H PRN Administration NAUSEA/VOMITING Polyethylene Glycol/Electrolytes 17 gm 10/14/17 09:00 10/14/17 08:38 Miralax* PO 17 gm DAILY ARIEL Administration Senna 2 tab 10/11/17 21:00 10/13/17 21:22 Senokot Tab* PO 2 tab BEDTIME ARIEL Administration Tramadol HCl 50 mg 10/11/17 12:31 10/14/17 13:12 Ultram* PO 50 mg Q6H PRN Administration pain - use first Vital Signs: Vital Signs Temp Pulse Resp BP Pulse Ox 98.1 F 68 16 100/58 95 10/14/17 07:03 10/14/17 07:03 10/14/17 13:14 10/14/17 07:03 10/14/17 16:47 Lab Results: Laboratory Results - last 24 hr 10/14/17 06:52 WBC 5.3 RBC 2.63 L Hgb 8.4 L Hct 24 L MCV 92 MCH 32 H MCHC 35 RDW 14 Plt Count 180 MPV 9.5 Neut % (Auto) 56.0 Lymph % (Auto) 25.9 [place] % (Auto) 12.3 H Eos % (Auto) 5.0 Baso % (Auto) 0.8 Absolute Neuts (auto) 3.0 Absolute Lymphs (auto) 1.4 Absolute Monos (auto) 0.7 Absolute Eos (auto) 0.3 Absolute Basos (auto) 0 Absolute Nucleated RBC 0 Nucleated RBC % 0 Exam: GENERAL: no acute distress. alert and appropriate. LUNGS: clear bilaterally. HEART: regular rate and rhythm ABDOMEN: + bowel sounds, soft, non-tender and non-distended EXTREMITIES: expected swelling at left thigh. Left hip dressing with scant/ minimal serosanguious drainage at middle incision. No pedal edema. Assessment/Plan: 1. Hip fracture: PT/OT. WBAT LLE. She will need follow up with Dr. Wiggins. Tramadol/Tylenol. Methocarbamol prn. 2. Nausea: Zofran p.r.n. 3. History of hypotension postoperatively: VS stable. d/c IV. Encourage p.o. fluids. 4. Acute postoperative anemia: Stable. Continue monitoring her CBC. 5. Mild thrombocyopenia. Resolved. 6. DVT prophylaxis: Lovenox. She will probably need teaching to do this at home prior to discharge. 7. Osteoporosis: Eventually, she will restart her monthly Boniva. 8. Lyme disease: Continue with her doxycycline treatment, day . 9. History of stroke: ASA. 10. Advanced directives: full code. Her son is bringing in her MOLST from home that has contingencies. Her son is her health care proxy 10/14/17 17:26
[2017-10-14] MEDS: Artificial Tears* 15 ML BTL BOTH EYES PRN (19:28)
[2017-10-14] MEDS: Senna TAB PO SCH (20:53)
[2017-10-15] MEDS: Ondansetron ODT TAB* 4 MG SL PRN (06:58)
[2017-10-15] MEDS: Cholecalciferol TAB* 1000 UNITS PO SCH (08:42)
[2017-10-15] MEDS: Docusate CAP* 100 MG PO SCH ×2 (08:42→21:02)
[2017-10-15] MEDS: Acetaminophen TAB* 325 MG PO SCH ×2 (08:42→21:15)
[2017-10-15] MEDS: DOXYcycline CAP(*) 100 MG PO SCH ×2 (08:42→21:04)
[2017-10-15] MEDS: Aspirin EC TAB* 81 MG TAB.EC PO SCH (08:42)
[2017-10-15] MEDS: Polyethylene Glycol 3350* 17 GM PACKET PO SCH (08:43)
[2017-10-15] MEDS: Artificial Tears* 15 ML BTL BOTH EYES PRN ×2 (11:57→21:08)
--- NOTE | 2017-10-15 12:45 | PMRUTEAM ---
PMRU: Team Meeting Current Status: Nursing: Current Status Skin Deviations [right forearm Abrasion ] Skin Deviations [Left Elbow] Abrasion Skin Deviations [Left Hip] Incision Skin Deviation Description [ healing right forearm] Skin Deviation Description [ scab, healing Left Elbow] Skin Deviation Description [ s/p surgery Left Hip] Physical Therapy: Current Status Bed Mobility Assistance Independent Transfer Moblility Assistance Supervision,Contact Guard Assist Transfer/Bed Mobility Rolling Walker Recommended Devices Ambulation Assistance Contact Guard Assist Ambulation Assistive Devices Rolling Walker Number of Feet Patient x30' Ambulated Stairs Assistance Contact Guard Assist Stairs Recommended Devices Two Rails Number of Stairs 5 Occupational Therapy: Current Status Upper Body Dressing Supervision Lower Body Dressing Min Assist Bathing Min Assist Toileting Supervision,Contact Guard Assist Toilet Transfer Supervision,Contact Guard Assist Shower Transfer Supervision,Contact Guard Assist Eating Independent Rec Therapy: Current Status Summary of Assessment and RT assessment complete and pt. is aware of Clinical Impression services. Pt. is open to leisure visits and was provided with crossword puzzles at her request. Treatment Goals Pt. will engage in leisure activities while on the unit. Treatment Plan Provide RT services and encourage involvement. Social Work: Current Status Discharge Plan return home with home care [facility] and [employer] support Potential for Family Training pt's daughter in law will be coming to stay with [place] Anticipated Discharge Home Destination Discharge With home care [facility] and family support Nutrition: Current Status Monitoring Pt admitted s/p ORIF 10/09 for left intratrochanteric hip fracture. Pt is ordered for a heart healthy diet. Intake has been variable ranging from 25-75% of meals 10/13-, although mostly > 50%. Anticipate overall intake to be adequate. Pt has been experiencing nausea, per chart. Zofran ordered prn (last given this morning ). Will follow for potential negative impact on PO intake. Per nursing assesment, pt w/o difficulty chewing/swallowing. Regular textures appropriate at this time. Per chart, pt w/o pressure related skin breakdown. Last BM documented 10/14. Bowel meds ordered. Labs reviewed upon admission 10/12; Ca+: 8 .1, glucose: 85. Will follow pt's progress and adequacy of PO intake. Full nutrition assessment planned 10/18. Goals: Physical Therapy: Initial Goals Bed Mobility Assistance Independent Transfer Mobility Assistance Independent Transfer/Bed Mobility Rolling Walker Recommended Devices Ambulation Independent Ambulation Recommended Devices Rolling Walker Ambulation Distance 150 Stairs Assistance Independent Stair Recommended Devices One Rail Number of Stairs 5 Home Exercise Program Independent Assistance Physical Therapy: Updated Goals Transfer/Bed Mobility Rolling Walker Recommended Devices Occupational Therapy: Initial Goals Goals to be Completed in (Days 10-14 days ) Upper Body Bathing Routine Modified Independent with Lower Body Bathing Routine Modified Independent with Upper Body Dressing Routine Independent Lower Body Dressing Routine Modified Independent with Toilet Hygeine and Clothing Modified Independent with Management Routine Toilet Transfer Routine Modified Independent with Step-In Shower Transfer Modified Independent with Routine Functional Transfers for ADL Modified Independent with Grooming Routine Independent Feeding Routine Independent Nutrition: Goals Intervention Goals 1. Adequate PO intake to maintain lean body mass and hydration w/o undesired weight loss 2. Intake will support post op healing and skin intergrity w/o pressure related breakdown 3. Electrolytes will remain WNL with adequate hydration 4. Achieve regularity of BM w/o constipation or diarrhea Social Work: Goals Discharge Plan return home with home care svs and hemantiy support Potential for Family Training pt's daughter in law will be coming to stay with [place] Anticipated Discharge Home Destination Discharge With home care svs and family support Care Plan: Care Plan Discharge Planning - Improve/Maintain Start: 10/13/17 01:11 Freq: DAILY Status: Active Target: Protocol: Activity Type Activity Date Activity User E-Sign Co-Sign Detail Recorded Client Recorded Date Recorded By Document 10/15/17 01:00 [id number] 10/15/17 06:56 [id number] 10/15/17 01:00 PMRU Outcome: Discharge Planning Update Patient Family No Outcome/Goals Demonstrates Understanding of Discharge Plan Progression Toward Outcome/Goals Progressing Education-Improve/Maintain Start: 10/13/17 01:11 Freq: QSHIFT Status: Active Target: Protocol: Activity Type Activity Date Activity User E-Sign Co-Sign Detail Recorded Client Recorded Date Recorded By Document 10/14/17 00:04 [id number] 10/14/17 00:06 [id number] 10/14/17 00:04 PMRU Outcome: Education Outcome/Goals Demonstrate/ Verbalize Understanding of Written Discharge Instructions Demonstrates Skills Encourage Questions Progression Toward Outcome/Goals Progressing /GI-Improve/Maintain Start: 10/13/17 01:11 Freq: QSHIFT Status: Active Target: Protocol: Activity Type Activity Date Activity User E-Sign Co-Sign Detail Recorded Client Recorded Date Recorded By Document 10/14/17 00:04 [id number] 10/14/17 00:06 [id number] 10/14/17 00:04 PMRU Outcome: Genitourinary/ Gastrointestinal Genitourinary- Outcome/Goals Maintain/ Achieve Urinary Continence Maintain/ Achieve Adequate Urinary Output Gastrointestinal-Outcome/Goals Prevent Constipation Progression Toward Outcome/Goals - Progressing Progression Toward Outcome/Goals - GI Progressing Genitourinary- Outcome/Goals Met Maintain/ Achieve Urinary Continence Maintain/ Achieve Adequate Urinary Output Gastrointestinal-Outcome/Goals Met Prevent Constipation Outcome/Goals Met Comment Pt had a small BM this evening Medication Administration Start: 10/13/17 01:11 Freq: QSHIFT Status: Active Target: Protocol: Activity Type Activity Date Activity User E-Sign Co-Sign Detail Recorded Client Recorded Date Recorded By Document 10/14/17 00:04 [id number] 10/14/17 00:06 [id number] 10/14/17 00:04 PMRU Outcome: Medication Administration Assess Patient Knowledge/Teach Med No Education for all Meds Outcome/Goals Patient Independent with Medication Administration at Home Demonstrates Understanding Progression Towards Outcome/Goals Progressing Outcome/Goals Met Demonstrates Understanding Is Patient Going Home on Lovenox? No Mobility- Improve/Maintain Start: 10/12/17 14:58 Freq: DAILY Status: Active Target: Protocol: Activity Type Activity Date Activity User E-Sign Co-Sign Detail Recorded Client Recorded Date Recorded By Document 10/14/17 14:17 [id number] 10/14/17 14:17 [id number] 10/14/17 14:17 PMRU Outcome: Mobility Physical Therapy Evaluation and Yes Treatment Activity OOB with Assistance Yes WBAT Yes Device Yes: FWW Assistance Yes: ModAX1 Patient to be seen 5x/wk for 60-120 min/ Therex day for: Mobility Training Gait Training W/C Mobility Balance Outcome/Goals Maintain/ Achieve Baseline Mobility Status Improve Mobility Status Demonstrates Proper Use of Assistive Devices Free from Complications of Immobility Progression Toward Outcome/Goals Progressing Outcome/Goals Met Improve Mobility Status Outcome/Goals Met Comment pt increased ambulation distances to 30 ' with CGA at gait belt and FWW Bed Mobility Yes: Ind Transfers Yes: Mod I Gait x ft Yes: Mod I x150ft Up/Down Stairs Yes: Sup x5 stairs with one rail With HEP Yes Neurological- Improve/Maintain Start: 10/13/17 01:11 Freq: QSHIFT Status: Active Target: Protocol: Activity Type Activity Date Activity User E-Sign Co-Sign Detail Recorded Client Recorded Date Recorded By Document 10/14/17 00:04 [id number] 10/14/17 00:06 [id number] 10/14/17 00:04 PMRU Outcome: Neurological Weakness/Aphasia Weakness Left Side Outcome/Goals Maintain/ Achieve Baseline Neurological Status Maintain/ Improve Strength/ROM Progression Toward Outcome/Goals Progressing Outcome/Goals Met Maintain/ Improve Strength/ROM Pain/Comfort- Improve/Maintain Start: 10/13/17 01:11 Freq: QSHIFT Status: Active Target: Protocol: Activity Type Activity Date Activity User E-Sign Co-Sign Detail Recorded Client Recorded Date Recorded By Document 10/14/17 00:04 [id number] 10/14/17 00:06 [id number] 10/14/17 00:04 PMRU Outcome: Pain/Comfort Outcome/Goals Demonstrates Knowledge and Use of Available Comfort Measures Achieves Acceptable Comfort/Pain Level as Determined by Patient/Condit Maintain Comfort Level Allowing Patient to Fully Participate in Rehab Progression Toward Outcome/Goals Progressing Outcome/Goals Met Demonstrates Knowledge and Use of Available Comfort Measures Outcome/Goals Met Comment pt declined scheduled pain mediation and took tramadol Safety- Improve/Maintain Start: 10/13/17 01:11 Freq: QSHIFT Status: Active Target: Protocol: Activity Type Activity Date Activity User E-Sign Co-Sign Detail Recorded Client Recorded Date Recorded By Document 10/14/17 00:04 [id number] 10/14/17 00:06 [id number] 10/14/17 00:04 PMRU Outcome: Safety Outcome/Goals Remain Free of Injury or Harm Cooperates with Safety Measures for Least Restrictive Environment Prevent Falls/ Injury Progression Toward Outcome/Goals Progressing Outcome/Goals Met Remain Free of Injury or Harm Cooperates with Safety Measures for Least Restrictive Environment Prevent Falls/ Injury Skin- Improve/Maintain Start: 10/13/17 01:11 Freq: QSHIFT Status: Active Target: Protocol: Activity Type Activity Date Activity User E-Sign Co-Sign Detail Recorded Client Recorded Date Recorded By Document 10/14/17 00:04 [id number] 10/14/17 00:06 [id number] 10/14/17 00:04 PMRU Outcome: Skin Skin Risk Level Low Outcome/Goals Maintain/ Improve Skin Intergrity Surgical Incisions Healing Progression Toward Outcome/Goals Progressing Outcome/Goals Met Maintain/ Improve Skin Intergrity Surgical Incisions Healing Medicine Note: Length of Stay: 1 week Anticipated Discharge Destination: Home Tentative Discharge Date: 10/22/17 Discharged to: Home
[2017-10-15] MEDS: Enoxaparin(*) 30 MG/0.3 ML SYR SUBCUT SCH (15:11)
--- NOTE | 2017-10-15 16:57 | PN ---
Progress Note Date of Service: 10/15/17 Note: ALANA LOMBARDO was visited. Therapy notes read and reviewed. She was discussed in interdisciplinary team rounds. She has improved a little in her ability to ambulate and transfer Current Medications: Active Medications Generic Name Dose Route Start Last Admin Trade Name Freq PRN Reason Stop Dose Admin Acetaminophen 975 mg 10/11/17 21:00 10/15/17 08:42 Tylenol Tab* PO 975 mg BID ARIEL Administration Acetaminophen 650 mg 10/11/17 21:00 10/14/17 05:37 Tylenol Tab* PO 650 mg BID PRN Administration . Aspirin 81 mg 10/12/17 09:00 10/15/17 08:42 Aspirin Ec Tab* PO 81 mg DAILY ARIEL Administration Bisacodyl 10 mg 10/11/17 12:19 10/13/17 10:00 Dulcolax Supp* [place] 10 mg DAILY PRN Administration CONSTIPATION Cholecalciferol 1,000 units 10/12/17 09:00 10/15/17 08:42 Vitamin D Tab* PO 1,000 units DAILY ARIEL Administration Docusate Sodium 100 mg 10/11/17 21:00 10/15/17 08:42 Colace Cap* PO 100 mg BID ARIEL Administration Doxycycline Hyclate 100 mg 10/11/17 21:00 10/15/17 08:42 Vibramycin Cap(*) PO 100 mg BID ARIEL Administration Enoxaparin Sodium 30 mg 10/11/17 13:00 10/15/17 15:11 Lovenox(*) SUBCUT 30 mg Q24H ARIEL Administration Lactulose 30 ml 10/13/17 09:44 Lactulose* PO QID PRN CONSTIPATION Methocarbamol 500 mg 10/13/17 03:11 10/14/17 08:19 Robaxin Tab* PO 500 mg Q6H PRN Administration SPASMS Pto:*Act [place] 1 admin 10/11/17 18:36 10/14/17 19:06 PO 1 admin Q1H PRN Administration DRY MOUTH Ondansetron HCl 4 mg 10/13/17 08:40 10/15/17 06:58 Zofran Odt Tab* SL 4 mg Q6H PRN Administration NAUSEA/VOMITING Polyethylene Glycol/Electrolytes 17 gm 10/14/17 09:00 10/15/17 08:43 Miralax* PO 17 gm DAILY ARIEL Administration Polyvinyl Alcohol 1 drop 10/14/17 19:17 10/15/17 11:57 Polyvinyl Alcohol 1.4% Opth* BOTH EYES 1 drop Q2H PRN Administration DRY EYES Senna 2 tab 10/11/17 21:00 10/14/17 20:53 Senokot Tab* PO 2 tab BEDTIME ARIEL Administration Tramadol HCl 50 mg 10/11/17 12:31 10/14/17 20:54 Ultram* PO 50 mg Q6H PRN Administration pain - use first Vital Signs: Vital Signs Temp Pulse Resp BP Pulse Ox 98.4 F 72 16 110/65 99 10/15/17 16:21 10/15/17 16:21 10/15/17 16:21 10/15/17 16:21 10/15/17 16:21 Exam: GENERAL: no acute distress. alert and appropriate. LUNGS: clear bilaterally. HEART: regular rate and rhythm ABDOMEN: + bowel sounds, soft, non-tender and non-distended EXTREMITIES: expected swelling at left thigh. No pedal edema.Wound C/D/I Assessment/Plan: 1. Hip fracture: PT/OT. WBAT LLE. She will need follow up with Dr. Wiggins. Tramadol/Tylenol. Methocarbamol prn. 2. Nausea: Zofran as needed 3. Acute postoperative anemia: Stable. Continue monitoring her CBC. 4. DVT prophylaxis: Lovenox. She will probably need teaching to do this at home prior to discharge. 5. Osteoporosis: Eventually, she will restart her monthly Boniva. 6. Lyme disease: Continue with her doxycycline treatment, day . 7. History of stroke: ASA. 8. Advanced directives: full code. Her son is her health care proxy 10/15/17 16:58
[2017-10-15] MEDS: traMADol TAB* 50 MG PO PRN (21:02)
[2017-10-15] MEDS: Senna TAB PO SCH (21:03)
[2017-10-16] MEDS: [UNRECOGNIZED DRUG - OTHER] PO PRN ×2 (01:45→04:58)
[2017-10-16 07:29] LABS: ABS Basophils 0 10^3/ul (0-0.2); ABS Eosinophils 0.4 10^3/ul (0-0.6); ABS Lymphocytes 1.4 10^3/ul (1.0-4.8); ABS Monocytes 0.6 10^3/ul (0-0.8); ABS Neutrophils 2.6 10^3/ul (1.5-7.7); ABS Nucleated RBC 0 10^3/ul; Eosinophil % 7.1 % (0-6); Hematocrit 26 % (35-47); Hemoglobin 8.7 g/dl (12.0-16.0); Lymphocyte % 27.7 % (25-47); Mean Corpuscular HGB Conc 34 g/dl (31-36); Mean Corpuscular Hemoglobin 31 pg (27-31); Mean Corpuscular Volume 94 fL (80-97); Nucleated Red Blood Cells % 0.1; Platelet Count 233 10^3/ul (150-450); Red Blood Count 2.77 10^6/ul (4.00-5.40); Red Cell Distribution Width 14 % (10.5-15); White Blood Count 5.1 10^3/ul (3.5-10.8)
[2017-10-16 07:48] LABS: EGFR Non-African American 87.3 (>60)
[2017-10-16] MEDS: Acetaminophen TAB* 325 MG PO SCH ×2 (07:58→21:27)
[2017-10-16] MEDS: Aspirin EC TAB* 81 MG TAB.EC PO SCH (07:59)
[2017-10-16] MEDS: Docusate CAP* 100 MG PO SCH ×2 (07:59→21:27)
[2017-10-16] MEDS: Cholecalciferol TAB* 1000 UNITS PO SCH (07:59)
[2017-10-16] MEDS: Polyethylene Glycol 3350* 17 GM PACKET PO SCH (10:18)
[2017-10-16] MEDS: traMADol TAB* 50 MG PO PRN ×2 (12:59→21:28)
[2017-10-16] MEDS: Enoxaparin(*) 30 MG/0.3 ML SYR SUBCUT SCH (13:04)
--- NOTE | 2017-10-16 18:05 | PN ---
Progress Note Date of Service: 10/16/17 Note: ALANA LOMBARDO was visited. Therapy notes read and reviewed. She states she started her Doxycycline on September 18 and she should be done by now. Reading her medication bottle from home, it is dated September 18. I will stop Doxycycline. She also notes spasms in her left leg. She has Robaxin ordered Current Medications: Active Medications Generic Name Dose Route Start Last Admin Trade Name Freq PRN Reason Stop Dose Admin Acetaminophen 975 mg 10/11/17 21:00 10/16/17 07:58 Tylenol Tab* PO 975 mg BID ARIEL Administration Acetaminophen 650 mg 10/11/17 21:00 10/14/17 05:37 Tylenol Tab* PO 650 mg BID PRN Administration . Aspirin 81 mg 10/12/17 09:00 10/16/17 07:59 Aspirin Ec Tab* PO 81 mg DAILY ARIEL Administration Bisacodyl 10 mg 10/11/17 12:19 10/13/17 10:00 Dulcolax Supp* [place] 10 mg DAILY PRN Administration CONSTIPATION Cholecalciferol 1,000 units 10/12/17 09:00 10/16/17 07:59 Vitamin D Tab* PO 1,000 units DAILY ARIEL Administration Docusate Sodium 100 mg 10/11/17 21:00 10/16/17 07:59 Colace Cap* PO 100 mg BID ARIEL Administration Enoxaparin Sodium 30 mg 10/11/17 13:00 10/16/17 13:04 Lovenox(*) SUBCUT 30 mg Q24H ARIEL Administration Lactulose 30 ml 10/13/17 09:44 10/15/17 19:19 Lactulose* PO 30 ml QID PRN Administration CONSTIPATION Methocarbamol 750 mg 10/16/17 18:02 Robaxin Tab* PO Q6H PRN SPASMS Pto:*Act [place] 1 admin 10/11/17 18:36 10/16/17 04:58 PO 1 admin Q1H PRN Administration DRY MOUTH Ondansetron HCl 4 mg 10/13/17 08:40 10/15/17 06:58 Zofran Odt Tab* SL 4 mg Q6H PRN Administration NAUSEA/VOMITING Polyethylene Glycol/Electrolytes 17 gm 10/14/17 09:00 10/16/17 10:18 Miralax* PO Not Given DAILY ARIEL Polyvinyl Alcohol 1 drop 10/14/17 19:17 10/15/17 21:08 Polyvinyl Alcohol 1.4% Opth* BOTH EYES 1 drop Q2H PRN Administration DRY EYES Senna 2 tab 10/11/17 21:00 10/15/17 21:03 Senokot Tab* PO 2 tab BEDTIME ARIEL Administration Tramadol HCl 50 mg 10/11/17 12:31 10/16/17 12:59 Ultram* PO 50 mg Q6H PRN Administration pain - use first Vital Signs: Vital Signs Temp Pulse Resp BP Pulse Ox 97.7 F 65 16 105/57 100 10/16/17 16:56 10/16/17 16:56 10/16/17 16:56 10/16/17 16:56 10/16/17 16:56 Lab Results: Laboratory Results - last 24 hr 10/16/17 10/16/17 07:16 07:16 WBC 5.1 RBC 2.77 L Hgb 8.7 L Hct 26 L MCV 94 MCH 31 MCHC 34 RDW 14 Plt Count 233 MPV 9.0 Neut % (Auto) 51.6 Lymph % (Auto) 27.7 [place] % (Auto) 12.6 H Eos % (Auto) 7.1 H Baso % (Auto) 1.0 Absolute Neuts (auto) 2.6 Absolute Lymphs (auto) 1.4 Absolute Monos (auto) 0.6 Absolute Eos (auto) 0.4 Absolute Basos (auto) 0 Absolute Nucleated RBC 0 Nucleated RBC % 0.1 Sodium 138 Potassium 4.1 Chloride 106 Carbon Dioxide 27 Anion Gap 5 BUN 13 Creatinine 0.65 Est GFR ( Amer) 105.6 Est GFR (Non-Af Amer) 87.3 BUN/Creatinine Ratio 20.0 Glucose 85 Calcium 8.8 Total Bilirubin 0.80 AST 40 H ALT 36 Alkaline Phosphatase 79 Total Protein 5.5 L Albumin 2.8 L Globulin 2.7 Albumin/Globulin Ratio 1.0 Exam: GENERAL: no acute distress. alert and appropriate. LUNGS: clear bilaterally. HEART: regular rate and rhythm ABDOMEN: + bowel sounds, soft, non-tender and non-distended EXTREMITIES: expected swelling at left thigh. No pedal edema.Wound C/D/I Assessment/Plan: 1. Hip fracture: PT/OT. WBAT LLE. She will need follow up with Dr. Wiggins. Tramadol/Tylenol. Methocarbamol prn. 2. Nausea: Zofran as needed 3. Acute postoperative anemia: Stable. Continue monitoring her CBC. 4. DVT prophylaxis: Lovenox. She will probably need teaching to do this at home prior to discharge. 5. Osteoporosis: Eventually, she will restart her monthly Boniva. 6. Lyme disease: doxycycline treatment is actually day 29 today. Will d/c doxycycline. 7. History of stroke: ASA. 8. Advanced directives: full code. Her son is her health care proxy 10/16/17 18:05
[2017-10-16] MEDS: Senna TAB PO SCH (21:27)
[2017-10-16] MEDS: Acetaminophen TAB* 325 MG PO PRN (21:27)
[2017-10-16] MEDS: Methocarbamol TAB* 500 MG PO PRN (21:34)
[2017-10-16] MEDS: DOXYcycline CAP(*) 100 MG PO SCH (23:32)
[2017-10-17] MEDS: [UNRECOGNIZED DRUG - OTHER] PO PRN ×2 (00:16→22:50)
[2017-10-17] MEDS: Methocarbamol TAB* 500 MG PO PRN ×2 (03:42→22:23)
[2017-10-17] MEDS: Acetaminophen TAB* 325 MG PO SCH ×2 (08:01→20:12)
[2017-10-17] MEDS: Aspirin EC TAB* 81 MG TAB.EC PO SCH (08:02)
[2017-10-17] MEDS: Polyethylene Glycol 3350* 17 GM PACKET PO SCH (08:03)
[2017-10-17] MEDS: Cholecalciferol TAB* 1000 UNITS PO SCH (08:06)
[2017-10-17] MEDS: Docusate CAP* 100 MG PO SCH ×2 (08:06→20:12)
[2017-10-17] MEDS: traMADol TAB* 50 MG PO PRN ×2 (08:36→23:24)
[2017-10-17] MEDS: Artificial Tears* 15 ML BTL BOTH EYES PRN ×2 (08:49→22:50)
[2017-10-17] MEDS: Ondansetron ODT TAB* 4 MG SL PRN (11:08)
--- NOTE | 2017-10-17 17:43 | PN ---
Progress Note Date of Service: 10/17/17 Note: ALANA LOMBARDO was visited. Therapy notes read and reviewed. She states she had Robaxin during the night and slept well. Spasms less. Otherwise ok Current Medications: Active Medications Generic Name Dose Route Start Last Admin Trade Name Freq PRN Reason Stop Dose Admin Acetaminophen 975 mg 10/11/17 21:00 10/17/17 08:01 Tylenol Tab* PO 975 mg BID ARIEL Administration Acetaminophen 650 mg 10/11/17 21:00 10/16/17 21:27 Tylenol Tab* PO 650 mg BID PRN Administration . Aspirin 81 mg 10/12/17 09:00 10/17/17 08:02 Aspirin Ec Tab* PO 81 mg DAILY ARIEL Administration Bisacodyl 10 mg 10/11/17 12:19 10/13/17 10:00 Dulcolax Supp* [place] 10 mg DAILY PRN Administration CONSTIPATION Cholecalciferol 1,000 units 10/12/17 09:00 10/17/17 08:06 Vitamin D Tab* PO 1,000 units DAILY ARIEL Administration Docusate Sodium 100 mg 10/11/17 21:00 10/17/17 08:06 Colace Cap* PO 100 mg BID ARIEL Administration Enoxaparin Sodium 30 mg 10/11/17 13:00 10/16/17 13:04 Lovenox(*) SUBCUT 30 mg Q24H ARIEL Administration Lactulose 30 ml 10/13/17 09:44 10/15/17 19:19 Lactulose* PO 30 ml QID PRN Administration CONSTIPATION Lorazepam 0.5 mg 10/16/17 19:48 Ativan Tab(*) PO BEDTIME PRN INSOMNIA Methocarbamol 750 mg 10/16/17 18:02 10/17/17 03:42 Robaxin Tab* PO 750 mg Q6H PRN Administration SPASMS Pto:*Act [place] 1 admin 10/11/17 18:36 10/17/17 00:16 PO 1 admin Q1H PRN Administration DRY MOUTH Ondansetron HCl 4 mg 10/13/17 08:40 10/17/17 11:08 Zofran Odt Tab* SL 4 mg Q6H PRN Administration NAUSEA/VOMITING Polyethylene Glycol/Electrolytes 17 gm 10/14/17 09:00 10/17/17 08:03 Miralax* PO 17 gm DAILY ARIEL Administration Polyvinyl Alcohol 1 drop 10/14/17 19:17 10/17/17 08:49 Polyvinyl Alcohol 1.4% Opth* BOTH EYES 1 drop Q2H PRN Administration DRY EYES Senna 2 tab 10/11/17 21:00 10/16/17 21:27 Senokot Tab* PO 2 tab BEDTIME ARIEL Administration Tramadol HCl 50 mg 10/11/17 12:31 10/17/17 08:36 Ultram* PO 50 mg Q6H PRN Administration pain - use first Vital Signs: Vital Signs Temp Pulse Resp BP Pulse Ox 97.5 F 65 16 104/50 99 10/17/17 15:43 10/17/17 15:43 10/17/17 15:43 10/17/17 15:43 10/17/17 15:43 Exam: GENERAL: no acute distress. alert and appropriate. LUNGS: clear bilaterally. HEART: regular rate and rhythm ABDOMEN: + bowel sounds, soft, non-tender and non-distended EXTREMITIES: expected swelling at left thigh. No pedal edema.Wound C/D/I Assessment/Plan: 1. Hip fracture: PT/OT. WBAT LLE. She will need follow up with Dr. Wiggins. Tramadol/Tylenol. Methocarbamol prn. 2. Nausea: Zofran as needed 3. Acute postoperative anemia: Stable. Continue monitoring her CBC. 4. DVT prophylaxis: Lovenox. She will probably need teaching to do this at home prior to discharge. 5. Osteoporosis: Eventually, she will restart her monthly Boniva. She thinks she may be on too much Vitamin D? 6. Lyme disease: doxycycline finished. 7. History of stroke: ASA. 8. Advanced directives: full code. Her son is her health care proxy 10/17/17 17:46
[2017-10-17] MEDS: Enoxaparin(*) 30 MG/0.3 ML SYR SUBCUT SCH (18:04)
[2017-10-17] MEDS: Senna TAB PO SCH (20:12)
[2017-10-18] MEDS: [UNRECOGNIZED DRUG - OTHER] PO PRN ×2 (03:48→23:31)
[2017-10-18] MEDS: Acetaminophen TAB* 325 MG PO PRN (06:45)
[2017-10-18] MEDS: Polyethylene Glycol 3350* 17 GM PACKET PO SCH (09:00)
[2017-10-18] MEDS: Acetaminophen TAB* 325 MG PO SCH ×2 (09:00→22:01)
[2017-10-18] MEDS: Cholecalciferol TAB* 1000 UNITS PO SCH (10:21)
[2017-10-18] MEDS: Aspirin EC TAB* 81 MG TAB.EC PO SCH (10:21)
[2017-10-18] MEDS: Docusate CAP* 100 MG PO SCH ×2 (10:22→19:29)
[2017-10-18] MEDS: Enoxaparin(*) 30 MG/0.3 ML SYR SUBCUT SCH (15:53)
--- NOTE | 2017-10-18 17:23 | PN ---
Progress Note Date of Service: 10/18/17 Note: ALANA LOMBARDO was visited. Therapy notes read and reviewed. She has no complaints. She again was able to sleep last night after taking a Robaxin for spasms Current Medications: Active Medications Generic Name Dose Route Start Last Admin Trade Name Freq PRN Reason Stop Dose Admin Acetaminophen 975 mg 10/11/17 21:00 10/18/17 09:00 Tylenol Tab* PO Not Given BID ARIEL Acetaminophen 650 mg 10/11/17 21:00 10/18/17 06:45 Tylenol Tab* PO 650 mg BID PRN Administration . Aspirin 81 mg 10/12/17 09:00 10/18/17 10:21 Aspirin Ec Tab* PO 81 mg DAILY ARIEL Administration Bisacodyl 10 mg 10/11/17 12:19 10/13/17 10:00 Dulcolax Supp* [place] 10 mg DAILY PRN Administration CONSTIPATION Cholecalciferol 1,000 units 10/12/17 09:00 10/18/17 10:21 Vitamin D Tab* PO 1,000 units DAILY ARIEL Administration Docusate Sodium 100 mg 10/11/17 21:00 10/18/17 10:22 Colace Cap* PO 100 mg BID ARIEL Administration Enoxaparin Sodium 30 mg 10/11/17 13:00 10/18/17 15:53 Lovenox(*) SUBCUT 30 mg Q24H ARIEL Administration Lactulose 30 ml 10/13/17 09:44 10/15/17 19:19 Lactulose* PO 30 ml QID PRN Administration CONSTIPATION Lorazepam 0.5 mg 10/16/17 19:48 Ativan Tab(*) PO BEDTIME PRN INSOMNIA Methocarbamol 750 mg 10/16/17 18:02 10/17/17 22:23 Robaxin Tab* PO 750 mg Q6H PRN Administration SPASMS Pto:*Act [place] 1 admin 10/11/17 18:36 10/18/17 03:48 PO 1 admin Q1H PRN Administration DRY MOUTH Ondansetron HCl 4 mg 10/13/17 08:40 10/17/17 11:08 Zofran Odt Tab* SL 4 mg Q6H PRN Administration NAUSEA/VOMITING Polyethylene Glycol/Electrolytes 17 gm 10/14/17 09:00 10/18/17 09:00 Miralax* PO Not Given DAILY ARIEL Polyvinyl Alcohol 1 drop 10/14/17 19:17 10/17/17 22:50 Polyvinyl Alcohol 1.4% Opth* BOTH EYES 1 drop Q2H PRN Administration DRY EYES Senna 2 tab 10/11/17 21:00 10/17/17 20:12 Senokot Tab* PO 2 tab BEDTIME ARIEL Administration Tramadol HCl 50 mg 10/11/17 12:31 10/17/17 23:24 Ultram* PO 50 mg Q6H PRN Administration pain - use first Vital Signs: Vital Signs Temp Pulse Resp BP Pulse Ox 98.3 F 65 16 95/52 98 10/18/17 16:11 10/18/17 16:11 10/18/17 16:11 10/18/17 16:11 10/18/17 16:11 Exam: GENERAL: no acute distress. alert and appropriate. LUNGS: clear bilaterally. HEART: regular rate and rhythm ABDOMEN: + bowel sounds, soft, non-tender and non-distended EXTREMITIES: expected swelling at left thigh. No pedal edema.Wound C/D/I Assessment/Plan: 1. Hip fracture: PT/OT. WBAT LLE. She will need follow up with Dr. Wiggins. Tramadol/Tylenol. 2. Nausea: Zofran as needed 3. Acute postoperative anemia: Stable. Continue monitoring her CBC. 4. DVT prophylaxis: Lovenox. She will probably need teaching to do this at home prior to discharge. 5. Osteoporosis: Eventually, she will restart her monthly Boniva. She thinks she may be on too much Vitamin D? 6. Lyme disease: doxycycline finished. 7. History of stroke: ASA. 8. Spasms: Methocarbamol as needed 9. Advanced directives: full code. Her son is her health care proxy 10/18/17 17:24
[2017-10-18] MEDS: Senna TAB PO SCH (19:29)
[2017-10-18] MEDS: Methocarbamol TAB* 500 MG PO PRN (22:03)
[2017-10-18] MEDS: LORazepam TAB(*) 0.5 MG PO PRN (23:22)
[2017-10-18] MEDS: Artificial Tears* 15 ML BTL BOTH EYES PRN (23:31)
[2017-10-19] MEDS: traMADol TAB* 50 MG PO PRN ×2 (01:21→21:45)
[2017-10-19] MEDS: [UNRECOGNIZED DRUG - OTHER] PO PRN ×3 (02:28→19:31)
[2017-10-19] MEDS: Methocarbamol TAB* 500 MG PO PRN ×2 (07:22→21:47)
[2017-10-19] MEDS: Acetaminophen TAB* 325 MG PO SCH ×2 (07:22→20:54)
[2017-10-19] MEDS: Aspirin EC TAB* 81 MG TAB.EC PO SCH (07:23)
[2017-10-19] MEDS: Docusate CAP* 100 MG PO SCH ×2 (07:23→20:54)
[2017-10-19] MEDS: Cholecalciferol TAB* 1000 UNITS PO SCH (07:23)
[2017-10-19] MEDS: Polyethylene Glycol 3350* 17 GM PACKET PO SCH (07:24)
[2017-10-19] MEDS: Artificial Tears* 15 ML BTL BOTH EYES PRN (09:03)
[2017-10-19] MEDS: Enoxaparin(*) 30 MG/0.3 ML SYR SUBCUT SCH (13:00)
--- NOTE | 2017-10-19 20:33 | PN ---
Progress Note Date of Service: 10/19/17 Note: ALANA LOMBARDO was visited. Therapy notes read and reviewed. She had a hard time sleeping last night. Neither ativan nor Robaxin helped her. She will try tonight Current Medications: Active Medications Generic Name Dose Route Start Last Admin Trade Name Freq PRN Reason Stop Dose Admin Acetaminophen 975 mg 10/11/17 21:00 10/19/17 07:22 Tylenol Tab* PO 975 mg BID ARIEL Administration Acetaminophen 650 mg 10/11/17 21:00 10/18/17 06:45 Tylenol Tab* PO 650 mg BID PRN Administration . Aspirin 81 mg 10/12/17 09:00 10/19/17 07:23 Aspirin Ec Tab* PO 81 mg DAILY ARIEL Administration Bisacodyl 10 mg 10/11/17 12:19 10/13/17 10:00 Dulcolax Supp* [place] 10 mg DAILY PRN Administration CONSTIPATION Cholecalciferol 1,000 units 10/12/17 09:00 10/19/17 07:23 Vitamin D Tab* PO 1,000 units DAILY ARIEL Administration Docusate Sodium 100 mg 10/11/17 21:00 10/19/17 07:23 Colace Cap* PO 100 mg BID ARIEL Administration Enoxaparin Sodium 30 mg 10/11/17 13:00 10/19/17 13:00 Lovenox(*) SUBCUT 30 mg Q24H ARIEL Administration Lactulose 30 ml 10/13/17 09:44 10/15/17 19:19 Lactulose* PO 30 ml QID PRN Administration CONSTIPATION Lorazepam 0.5 mg 10/16/17 19:48 10/18/17 23:22 Ativan Tab(*) PO 0.5 mg BEDTIME PRN Administration INSOMNIA Methocarbamol 750 mg 10/16/17 18:02 10/19/17 07:22 Robaxin Tab* PO 750 mg Q6H PRN Administration SPASMS Pto:*Act [place] 1 admin 10/11/17 18:36 10/19/17 19:31 PO 1 admin Q1H PRN Administration DRY MOUTH Ondansetron HCl 4 mg 10/13/17 08:40 10/17/17 11:08 Zofran Odt Tab* SL 4 mg Q6H PRN Administration NAUSEA/VOMITING Polyethylene Glycol/Electrolytes 17 gm 10/14/17 09:00 10/19/17 07:24 Miralax* PO Not Given DAILY ARIEL Polyvinyl Alcohol 1 drop 10/14/17 19:17 10/19/17 09:03 Polyvinyl Alcohol 1.4% Opth* BOTH EYES 1 drop Q2H PRN Administration DRY EYES Senna 2 tab 10/11/17 21:00 10/18/17 19:29 Senokot Tab* PO 2 tab BEDTIME ARIEL Administration Tramadol HCl 50 mg 10/11/17 12:31 10/19/17 01:21 Ultram* PO 50 mg Q6H PRN Administration pain - use first Vital Signs: Vital Signs Temp Pulse Resp BP Pulse Ox 97.7 F 83 18 96/54 100 10/19/17 15:23 10/19/17 15:23 10/19/17 15:23 10/19/17 15:23 10/19/17 15:23 Exam: GENERAL: no acute distress. alert and appropriate. LUNGS: clear bilaterally. HEART: regular rate and rhythm ABDOMEN: + bowel sounds, soft, non-tender and non-distended EXTREMITIES: expected swelling at left thigh. No pedal edema.Wound C/D/I Assessment/Plan: 1. Hip fracture: PT/OT. WBAT LLE. She will need follow up with Dr. Wiggins. Tramadol/Tylenol. 2. Nausea: Zofran as needed 3. Acute postoperative anemia: Stable. Continue monitoring her CBC. 4. DVT prophylaxis: Lovenox. She will probably need teaching to do this at home prior to discharge. 5. Osteoporosis: Eventually, she will restart her monthly Boniva. She thinks she may be on too much Vitamin D? 6. Lyme disease: doxycycline finished. 7. History of stroke: ASA. 8. Spasms: Methocarbamol as needed 9. Advanced directives: full code. Her son is her health care proxy 10/19/17 20:34
[2017-10-19] MEDS: Senna TAB PO SCH (20:53)
[2017-10-19] MEDS: LORazepam TAB(*) 0.5 MG PO PRN (23:07)
[2017-10-20] MEDS: [UNRECOGNIZED DRUG - OTHER] PO PRN ×2 (00:15→23:48)
[2017-10-20] MEDS: traMADol TAB* 50 MG PO PRN ×2 (04:52→23:21)
[2017-10-20] MEDS: Docusate CAP* 100 MG PO SCH ×2 (08:00→21:32)
[2017-10-20] MEDS: Aspirin EC TAB* 81 MG TAB.EC PO SCH (08:00)
[2017-10-20] MEDS: Cholecalciferol TAB* 1000 UNITS PO SCH (08:00)
[2017-10-20] MEDS: Methocarbamol TAB* 500 MG PO PRN ×2 (08:01→22:33)
[2017-10-20] MEDS: Acetaminophen TAB* 325 MG PO SCH ×2 (08:01→21:32)
[2017-10-20] MEDS: Polyethylene Glycol 3350* 17 GM PACKET PO SCH (08:12)
[2017-10-20] MEDS: Enoxaparin(*) 30 MG/0.3 ML SYR SUBCUT SCH (12:32)
--- NOTE | 2017-10-20 20:50 | PN ---
Progress Note Date of Service: 10/20/17 Note: ALANA LOMBARDO was visited. Nursing notes read and reviewed. She again had trouble sleeping last night and got confused. Will stop Ativan and try Benadryl Current Medications: Active Medications Generic Name Dose Route Start Last Admin Trade Name Freq PRN Reason Stop Dose Admin Acetaminophen 975 mg 10/11/17 21:00 10/20/17 08:01 Tylenol Tab* PO 975 mg BID ARIEL Administration Acetaminophen 650 mg 10/11/17 21:00 10/18/17 06:45 Tylenol Tab* PO 650 mg BID PRN Administration . Aspirin 81 mg 10/12/17 09:00 10/20/17 08:00 Aspirin Ec Tab* PO 81 mg DAILY ARIEL Administration Bisacodyl 10 mg 10/11/17 12:19 10/13/17 10:00 Dulcolax Supp* [place] 10 mg DAILY PRN Administration CONSTIPATION Cholecalciferol 1,000 units 10/12/17 09:00 10/20/17 08:00 Vitamin D Tab* PO 1,000 units DAILY ARIEL Administration Docusate Sodium 100 mg 10/11/17 21:00 10/20/17 08:00 Colace Cap* PO 100 mg BID ARIEL Administration Enoxaparin Sodium 30 mg 10/11/17 13:00 10/20/17 12:32 Lovenox(*) SUBCUT 30 mg Q24H ARIEL Administration Lactulose 30 ml 10/13/17 09:44 10/15/17 19:19 Lactulose* PO 30 ml QID PRN Administration CONSTIPATION Lorazepam 0.5 mg 10/16/17 19:48 10/19/17 23:07 Ativan Tab(*) PO 0.5 mg BEDTIME PRN Administration INSOMNIA Methocarbamol 750 mg 10/16/17 18:02 10/20/17 08:01 Robaxin Tab* PO 750 mg Q6H PRN Administration SPASMS Pto:*Act [place] 1 admin 10/11/17 18:36 10/20/17 00:15 PO 1 admin Q1H PRN Administration DRY MOUTH Ondansetron HCl 4 mg 10/13/17 08:40 10/17/17 11:08 Zofran Odt Tab* [place] 4 mg Q6H PRN Administration NAUSEA/VOMITING Polyethylene Glycol/Electrolytes 17 gm 10/14/17 09:00 10/20/17 08:12 Miralax* PO Not Given DAILY ARIEL Polyvinyl Alcohol 1 drop 10/14/17 19:17 10/19/17 09:03 Polyvinyl Alcohol 1.4% Opth* BOTH EYES 1 drop Q2H PRN Administration DRY EYES Senna 2 tab 10/11/17 21:00 10/19/17 20:53 Senokot Tab* PO 2 tab BEDTIME ARIEL Administration Tramadol HCl 50 mg 10/11/17 12:31 10/20/17 04:52 Ultram* PO 50 mg Q6H PRN Administration pain - use first Vital Signs: Vital Signs Temp Pulse Resp BP Pulse Ox 97.8 F 67 16 101/53 100 10/20/17 16:24 10/20/17 16:24 10/20/17 18:00 10/20/17 16:24 10/20/17 18:00 Exam: GENERAL: no acute distress. alert and appropriate. LUNGS: clear bilaterally. HEART: regular rate and rhythm ABDOMEN: + bowel sounds, soft, non-tender and non-distended EXTREMITIES: expected swelling at left thigh. No pedal edema.Wound C/D/I Assessment/Plan: 1. Hip fracture: PT/OT. WBAT LLE. She will need follow up with Dr. Wiggins. Tramadol/Tylenol. 2. Nausea: Zofran as needed 3. Acute postoperative anemia: Stable. Continue monitoring her CBC. 4. DVT prophylaxis: Lovenox. She will probably need teaching to do this at home prior to discharge. 5. Osteoporosis: Eventually, she will restart her monthly Boniva. She thinks she may be on too much Vitamin D? 6. Lyme disease: doxycycline finished. 7. History of stroke: ASA. 8. Spasms: Methocarbamol as needed 9. Advanced directives: full code. Her son is her health care proxy 10/20/17 20:50
[2017-10-20] MEDS: Senna TAB PO SCH (21:32)
[2017-10-20] MEDS: diPHENhydraMINE PO* 25 MG PO PRN (21:33)
[2017-10-21] MEDS: Methocarbamol TAB* 500 MG PO PRN ×3 (05:59→20:06)
[2017-10-21] MEDS: Acetaminophen TAB* 325 MG PO PRN ×2 (05:59→14:17)
[2017-10-21] MEDS: Aspirin EC TAB* 81 MG TAB.EC PO SCH (08:33)
[2017-10-21] MEDS: Cholecalciferol TAB* 1000 UNITS PO SCH (08:34)
[2017-10-21] MEDS: Docusate CAP* 100 MG PO SCH ×2 (08:34→21:24)
[2017-10-21] MEDS: Acetaminophen TAB* 325 MG PO SCH ×2 (08:34→21:23)
[2017-10-21] MEDS: traMADol TAB* 50 MG PO PRN ×2 (08:34→18:10)
[2017-10-21] MEDS: Polyethylene Glycol 3350* 17 GM PACKET PO SCH (08:35)
[2017-10-21] MEDS: [UNRECOGNIZED DRUG - OTHER] PO PRN ×2 (11:04→23:35)
[2017-10-21] MEDS: Enoxaparin(*) 30 MG/0.3 ML SYR SUBCUT SCH (14:16)
--- NOTE | 2017-10-21 17:45 | PN ---
Progress Note Date of Service: 10/21/17 Note: ALANA LOMBARDO was visited. Therapy notes read and reviewed. She will stay until Saturday to work on bed transfers. Slept better Current Medications: Active Medications Generic Name Dose Route Start Last Admin Trade Name Freq PRN Reason Stop Dose Admin Acetaminophen 975 mg 10/11/17 21:00 10/21/17 08:34 Tylenol Tab* PO 975 mg BID ARIEL Administration Acetaminophen 650 mg 10/11/17 21:00 10/21/17 14:17 Tylenol Tab* PO 650 mg BID PRN Administration . Aspirin 81 mg 10/12/17 09:00 10/21/17 08:33 Aspirin Ec Tab* PO 81 mg DAILY ARIEL Administration Bisacodyl 10 mg 10/11/17 12:19 10/13/17 10:00 Dulcolax Supp* [place] 10 mg DAILY PRN Administration CONSTIPATION Cholecalciferol 1,000 units 10/12/17 09:00 10/21/17 08:34 Vitamin D Tab* PO 1,000 units DAILY ARIEL Administration Diphenhydramine HCl 25 mg 10/20/17 20:51 10/20/17 21:33 Benadryl Po* PO 25 mg BEDTIME PRN Administration INSOMNIA Docusate Sodium 100 mg 10/11/17 21:00 10/21/17 08:34 Colace Cap* PO 100 mg BID ARIEL Administration Enoxaparin Sodium 30 mg 10/11/17 13:00 10/21/17 14:16 Lovenox(*) SUBCUT 30 mg Q24H ARIEL Administration Lactulose 30 ml 10/13/17 09:44 10/15/17 19:19 Lactulose* PO 30 ml QID PRN Administration CONSTIPATION Methocarbamol 750 mg 10/16/17 18:02 10/21/17 14:17 Robaxin Tab* PO 750 mg Q6H PRN Administration SPASMS Pto:*Act [place] 1 admin 10/11/17 18:36 10/21/17 11:04 PO 1 admin Q1H PRN Administration DRY MOUTH Ondansetron HCl 4 mg 10/13/17 08:40 10/17/17 11:08 Zofran Odt Tab* [place] 4 mg Q6H PRN Administration NAUSEA/VOMITING Polyethylene Glycol/Electrolytes 17 gm 10/14/17 09:00 07/16/18 08:35 Miralax* PO Not Given DAILY ARIEL Polyvinyl Alcohol 1 drop 10/14/17 19:17 10/19/17 09:03 Polyvinyl Alcohol 1.4% Opth* BOTH EYES 1 drop Q2H PRN Administration DRY EYES Senna 2 tab 10/11/17 21:00 10/20/17 21:32 Senokot Tab* PO 2 tab BEDTIME ARIEL Administration Tramadol HCl 50 mg 10/11/17 12:31 10/21/17 08:34 Ultram* PO 50 mg Q6H PRN Administration pain - use first Vital Signs: Vital Signs Temp Pulse Resp BP Pulse Ox 98.0 F 66 16 102/58 100 10/21/17 15:54 10/21/17 15:54 10/21/17 15:54 10/21/17 15:54 10/21/17 15:54 Exam: GENERAL: no acute distress. alert and appropriate. LUNGS: clear bilaterally. HEART: regular rate and rhythm ABDOMEN: + bowel sounds, soft, non-tender and non-distended EXTREMITIES: No pedal edema.Wound C/D/I Assessment/Plan: 1. Hip fracture: PT/OT. WBAT LLE. She will need follow up with Dr. Wiggins. Tramadol/Tylenol. 2. Nausea: Zofran as needed 3. Acute postoperative anemia: Stable. Continue monitoring her CBC. 4. DVT prophylaxis: Lovenox. She will probably need teaching to do this at home prior to discharge. 5. Osteoporosis: Eventually, she will restart her monthly Boniva. She thinks she may be on too much Vitamin D? 6. Lyme disease: doxycycline finished. 7. History of stroke: ASA. 8. Spasms: Methocarbamol as needed 9. Advanced directives: full code. Her son is her health care proxy 10/21/17 17:46
[2017-10-21] MEDS: Senna TAB PO SCH (21:26)
[2017-10-21] MEDS: diPHENhydraMINE PO* 25 MG PO PRN (22:36)
[2017-10-22] MEDS: traMADol TAB* 50 MG PO PRN ×4 (00:07→23:18)
[2017-10-22] MEDS: Methocarbamol TAB* 500 MG PO PRN ×2 (04:50→21:13)
[2017-10-22] MEDS: Acetaminophen TAB* 325 MG PO PRN ×2 (04:50→13:53)
[2017-10-22] MEDS: [UNRECOGNIZED DRUG - OTHER] PO PRN ×4 (05:01→23:18)
[2017-10-22] MEDS: Docusate CAP* 100 MG PO SCH ×2 (08:11→21:12)
[2017-10-22] MEDS: Acetaminophen TAB* 325 MG PO SCH ×2 (08:11→21:10)
[2017-10-22] MEDS: Aspirin EC TAB* 81 MG TAB.EC PO SCH (08:12)
[2017-10-22] MEDS: Cholecalciferol TAB* 1000 UNITS PO SCH (08:12)
[2017-10-22] MEDS: Polyethylene Glycol 3350* 17 GM PACKET PO SCH (08:22)
--- NOTE | 2017-10-22 12:30 | PMRUTEAM ---
PMRU: Team Meeting Current Status: Nursing: Current Status Skin Deviations [right forearm Abrasion ] Skin Deviations [Left Incision Posterior Leg] Skin Deviations [Left Elbow] Abrasion Skin Deviations [Left Hip] Incision Skin Deviation Description [ healing right forearm] Skin Deviation Description [ montse intact, slight erythema, no drainage Left Posterior Leg] Skin Deviation Description [ not visualized, dressing in place Left Elbow] Skin Deviation Description [ montse intact, slight erythema, no drainage Left Hip] Drain Type [Left Posterior Leg None ] Drain Type [Left Hip] None Bladder Current Status voiding Bowel Current Status continues with bowel meds Nutrition Current Status eating well Medication Current Status needs reinforcement Physical Therapy: Current Status Bed Mobility Assistance Supervision Transfer Moblility Assistance Supervision Transfer/Bed Mobility Rolling Walker Recommended Devices Ambulation Assistance Supervision Ambulation Assistive Devices Rolling Walker Number of Feet Patient 100' Ambulated Stairs Assistance Supervision Stairs Recommended Devices Two Rails Number of Stairs 5 Objective Comments Pt. had an episode of being light headed. Nursing notifed BP results: In sittin/62 then taken in standing position and result was 81/61 then taken again in sitting and result was 98/61. Occupational Therapy: Current Status Upper Body Dressing Independent Lower Body Dressing Independent Bathing Ind with Adaptive Equip Toileting Ind with Adaptive Equip Toilet Transfer Ind with Adaptive Equip Shower Transfer Ind with Adaptive Equip Eating Independent Rec Therapy: Current Status Summary of Assessment and RT assessment complete and pt. is aware of Clinical Impression services. Pt. has been engaged in regular leisure visits. Pt. expressed anxiety surrounding d/c. Assisted pt. with writing/typing a letter she needed completed. Treatment Goals Pt. will engage in leisure activities while on the unit. Treatment Plan Provide RT services and encourage involvement. Social Work: Current Status Discharge Plan return home with home care [facility] and [facility] support Potential for Family Training pt's daughter in law will be coming to stay with [place] Anticipated Discharge Home Destination Discharge With home care [facility] and family support Nutrition: Current Status Monitoring Verbal consult received as pt requested to see RDN . Visited pt this afternoon during lunch. Pt w/ complaints about being on a heart healthy diet. Per review of chart, pt has been given education several times (by RDN, and by nursing) as to the purpose of a heart healthy diet. Noted intake yesterday to be 50-90% of meals; no indication to liberalize diet due to intake, as this is improving. Will remain available to provide additional education as indicated. Per chart, pt w /o pressure related skin breakdown. Last BM documented 10/18. No new labs to review. Will continue to follow. Goals: Physical Therapy: Initial Goals Bed Mobility Assistance Independent Transfer Mobility Assistance Independent Transfer/Bed Mobility Rolling Walker Recommended Devices Ambulation Independent Ambulation Recommended Devices Rolling Walker Ambulation Distance 150 Stairs Assistance Independent Stair Recommended Devices One Rail Number of Stairs 5 Home Exercise Program Independent Assistance Physical Therapy: Updated Goals Transfer/Bed Mobility Rolling Walker Recommended Devices Occupational Therapy: Initial Goals Goals to be Completed in (Days 10-14 days ) Upper Body Bathing Routine Modified Independent with Lower Body Bathing Routine Modified Independent with Upper Body Dressing Routine Independent Lower Body Dressing Routine Modified Independent with Toilet Hygeine and Clothing Modified Independent with Management Routine Toilet Transfer Routine Modified Independent with Step-In Shower Transfer Modified Independent with Routine Functional Transfers for ADL Modified Independent with Grooming Routine Independent Feeding Routine Independent Nursing: Goals Bladder Goal indep Bowel Goal indep Nutrition Goal 100% all meals Medication Goal indep Nutrition: Goals Intervention Goals 1. Adequate PO intake to maintain lean body mass and hydration w/o undesired weight loss - Goal: > 50% of meals 2. Pt will maintain regular bowel pattern without constipation/diarrhea Social Work: Goals Discharge Plan return home with home care [facility] and [place] support Potential for Family Training pt's daughter in law will be coming to stay with [place] Anticipated Discharge Home Destination Discharge With home care [facility] and family support Care Plan: Care Plan ADL's - Improve/Maintain Start: 10/13/17 01:11 Freq: DAILY Status: Active Target: Protocol: Activity Type Activity Date Activity User E-Sign Co-Sign Detail Recorded Client Recorded Date Recorded By Document 10/21/17 14:07 [id number] 10/21/17 14:07 [id number] 10/21/17 14:07 PMRU Outcome: ADL's/ADL Transfers Orders/Interventions Occupational Therapy Evaluation & Treatment Device Yes Patient to receive OT 5x/wk for 60-120 Therex min/day Self Care Management Group Therapy Neuromuscular ReEducation UE/LE ADL's with Assist Yes ADL Transfers with Assist Yes Toileting: Transfers,Clothing Management Yes ,Hygeine w/Assist Light Kitchen/Laundry w/Assist Yes Progression Toward Outcome/Goals Progressing Outcome/Goals Met Pt. demonstrates significant progression towards OT goals this date . Pt. able to complete LB dressing without the use of AE this date. Pt. limited by anxiety about d /c home Discharge Planning - Improve/Maintain Start: 10/13/17 01:11 Freq: DAILY@1200 Status: Active Target: Protocol: Activity Type Activity Date Activity User E-Sign Co-Sign Detail Recorded Client Recorded Date Recorded By Document 10/22/17 00:19 [id number] 10/22/17 00:20 [id number] 10/22/17 00:19 PMRU Outcome: Discharge Planning Update Patient Family No Outcome/Goals Demonstrates Understanding of Discharge Plan Progression Toward Outcome/Goals Progressing Education-Improve/Maintain Start: 10/13/17 01:11 Freq: QSHIFT Status: Active Target: Protocol: Activity Type Activity Date Activity User E-Sign Co-Sign Detail Recorded Client Recorded Date Recorded By Document 10/22/17 00:19 [id number] 10/22/17 00:20 [id number] 10/22/17 00:19 PMRU Outcome: Education Outcome/Goals Demonstrate/ Verbalize Understanding of Written Discharge Instructions Demonstrates Skills Encourage Questions Progression Toward Outcome/Goals Progressing /GI-Improve/Maintain Start: 10/13/17 01:11 Freq: QSHIFT Status: Active Target: Protocol: Activity Type Activity Date Activity User E-Sign Co-Sign Detail Recorded Client Recorded Date Recorded By Document 10/22/17 00:19 [id number] 10/22/17 00:20 [id number] 10/22/17 00:19 PMRU Outcome: Genitourinary/ Gastrointestinal Genitourinary- Outcome/Goals Maintain/ Achieve Urinary Continence Maintain/ Achieve Adequate Urinary Output Gastrointestinal-Outcome/Goals Maintain/ Achieve Bowel Regularity in Accordance with Pt's Baseline Prevent Constipation Laxatives as Ordered Progression Toward Outcome/Goals - Progressing Progression Toward Outcome/Goals - GI Progressing Genitourinary- Outcome/Goals Met Maintain/ Achieve Urinary Continence Maintain/ Achieve Adequate Urinary Output Gastrointestinal-Outcome/Goals Met Prevent Constipation Outcome/Goals Met Comment pt up to BR Medication Administration Start: 10/13/17 01:11 Freq: QSHIFT Status: Active Target: Protocol: Activity Type Activity Date Activity User E-Sign Co-Sign Detail Recorded Client Recorded Date Recorded By Document 10/22/17 00:19 [id number] 10/22/17 00:20 [id number] 10/22/17 00:19 PMRU Outcome: Medication Administration Assess Patient Knowledge/Teach Med No Education for all Meds Outcome/Goals Patient Independent with Medication Administration at Home Demonstrates Understanding Demonstrates Lovenox Administration Progression Towards Outcome/Goals Progressing Outcome/Goals Met Demonstrates Understanding Is Patient Going Home on Lovenox? No Mobility- Improve/Maintain Start: 10/12/17 14:58 Freq: DAILY Status: Active Target: Protocol: Activity Type Activity Date Activity User E-Sign Co-Sign Detail Recorded Client Recorded Date Recorded By Document 10/16/17 16:02 [id number] 10/16/17 16:03 [id number] 10/16/17 16:02 PMRU Outcome: Mobility Physical Therapy Evaluation and Yes Treatment Activity OOB with Assistance Yes WBAT Yes Device Yes: FWW Assistance Yes: ModAX1 Patient to be seen 5x/wk for 60-120 min/ Therex day for: Mobility Training Gait Training W/C Mobility Balance Outcome/Goals Maintain/ Achieve Baseline Mobility Status Improve Mobility Status Demonstrates Proper Use of Assistive Devices Free from Complications of Immobility Progression Toward Outcome/Goals Progressing Outcome/Goals Met Improve Mobility Status Outcome/Goals Met Comment pt increased ambulation distances to 30 ' with CGA at gait belt and FWW Bed Mobility Yes: Ind Transfers Yes: Mod I Gait x ft Yes: Mod I x150ft Up/Down Stairs Yes: Sup x5 stairs with one rail With HEP Yes Neurological- Improve/Maintain Start: 10/13/17 01:11 Freq: QSHIFT Status: Active Target: Protocol: Activity Type Activity Date Activity User E-Sign Co-Sign Detail Recorded Client Recorded Date Recorded By Document 10/22/17 00:19 [id number] 10/22/17 00:20 [id number] 10/22/17 00:19 PMRU Outcome: Neurological Weakness/Aphasia Weakness Left Side Outcome/Goals Maintain/ Achieve Baseline Neurological Status Maintain/ Improve Strength/ROM Progression Toward Outcome/Goals Progressing Outcome/Goals Met Maintain/ Improve Strength/ROM Pain/Comfort- Improve/Maintain Start: 10/13/17 01:11 Freq: QSHIFT Status: Active Target: Protocol: Activity Type Activity Date Activity User E-Sign Co-Sign Detail Recorded Client Recorded Date Recorded By Document 10/22/17 00:19 [id number] 10/22/17 00:20 [id number] 10/22/17 00:19 PMRU Outcome: Pain/Comfort Outcome/Goals Demonstrates Knowledge and Use of Available Comfort Measures Achieves Acceptable Comfort/Pain Level as Determined by Patient/Condit Maintain Comfort Level Allowing Patient to Fully Participate in Rehab Progression Toward Outcome/Goals Progressing Outcome/Goals Met Demonstrates Knowledge and Use of Available Comfort Measures Outcome/Goals Met Comment pain medication given Safety- Improve/Maintain Start: 10/13/17 01:11 Freq: QSHIFT Status: Active Target: Protocol: Activity Type Activity Date Activity User E-Sign Co-Sign Detail Recorded Client Recorded Date Recorded By Document 10/22/17 00:19 [id number] 10/22/17 00:20 [id number] 10/22/17 00:19 PMRU Outcome: Safety Outcome/Goals Remain Free of Injury or Harm Cooperates with Safety Measures for Least Restrictive Environment Prevent Falls/ Injury Progression Toward Outcome/Goals Progressing Outcome/Goals Met Remain Free of Injury or Harm Cooperates with Safety Measures for Least Restrictive Environment Prevent Falls/ Injury Skin- Improve/Maintain Start: 10/13/17 01:11 Freq: QSHIFT Status: Active Target: Protocol: Activity Type Activity Date Activity User E-Sign Co-Sign Detail Recorded Client Recorded Date Recorded By Document 10/22/17 00:19 [id number] 10/22/17 00:20 [id number] 10/22/17 00:19 PMRU Outcome: Skin Skin Risk Level Low Outcome/Goals Maintain/ Improve Skin Intergrity Surgical Incisions Healing Progression Toward Outcome/Goals Progressing Outcome/Goals Met Maintain/ Improve Skin Intergrity Surgical Incisions Healing Medicine Note: Length of Stay: 1 day Anticipated Discharge Destination: Home Tentative Discharge Date: 10/23/17 Discharged to: Home
[2017-10-22] MEDS: Enoxaparin(*) 30 MG/0.3 ML SYR SUBCUT SCH (13:53)
--- NOTE | 2017-10-22 17:17 | PN ---
Progress Note Date of Service: 10/22/17 Note: ALANA LOMBARDO was visited. Therapy notes read and reviewed. She was discussed in interdisciplinary team rounds. She is set for discharge tomorrow Current Medications: Active Medications Generic Name Dose Route Start Last Admin Trade Name Freq PRN Reason Stop Dose Admin Acetaminophen 975 mg 10/11/17 21:00 10/22/17 08:11 Tylenol Tab* PO 975 mg BID ARIEL Administration Acetaminophen 650 mg 10/11/17 21:00 10/22/17 13:53 Tylenol Tab* PO 650 mg BID PRN Administration . Aspirin 81 mg 10/12/17 09:00 10/22/17 08:12 Aspirin Ec Tab* PO 81 mg DAILY ARIEL Administration Bisacodyl 10 mg 10/11/17 12:19 10/13/17 10:00 Dulcolax Supp* IN 10 mg DAILY PRN Administration CONSTIPATION Cholecalciferol 1,000 units 10/12/17 09:00 10/22/17 08:12 Vitamin D Tab* PO 1,000 units DAILY ARIEL Administration Diphenhydramine HCl 25 mg 10/20/17 20:51 10/21/17 22:36 Benadryl Po* PO 25 mg BEDTIME PRN Administration INSOMNIA Docusate Sodium 100 mg 10/11/17 21:00 10/22/17 08:11 Colace Cap* PO 100 mg BID ARIEL Administration Enoxaparin Sodium 30 mg 10/11/17 13:00 10/22/17 13:53 Lovenox(*) SUBCUT 30 mg Q24H ARIEL Administration Lactulose 30 ml 10/13/17 09:44 10/15/17 19:19 Lactulose* PO 30 ml QID PRN Administration CONSTIPATION Methocarbamol 750 mg 10/16/17 18:02 10/22/17 04:50 Robaxin Tab* PO 750 mg Q6H PRN Administration SPASMS Pto:*Act [place] 1 admin 10/11/17 18:36 10/22/17 08:14 PO 1 admin Q1H PRN Administration DRY MOUTH Ondansetron HCl 4 mg 10/13/17 08:40 10/17/17 11:08 Zofran Odt Tab* SL 4 mg Q6H PRN Administration NAUSEA/VOMITING Polyethylene Glycol/Electrolytes 17 gm 10/14/17 09:00 07/17/18 08:22 Miralax* PO Not Given DAILY ARIEL Polyvinyl Alcohol 1 drop 10/14/17 19:17 10/19/17 09:03 Polyvinyl Alcohol 1.4% Opth* BOTH EYES 1 drop Q2H PRN Administration DRY EYES Senna 2 tab 10/11/17 21:00 10/21/17 21:26 Senokot Tab* PO 2 tab BEDTIME ARIEL Administration Tramadol HCl 50 mg 10/11/17 12:31 10/22/17 16:43 Ultram* PO 50 mg Q6H PRN Administration pain - use first Vital Signs: Vital Signs Temp Pulse Resp BP Pulse Ox 97.7 F 70 16 104/59 97 10/22/17 16:07 10/22/17 16:07 10/22/17 16:43 10/22/17 16:07 10/22/17 16:46 Exam: GENERAL: no acute distress. alert and appropriate. LUNGS: clear bilaterally. HEART: regular rate and rhythm ABDOMEN: + bowel sounds, soft, non-tender and non-distended EXTREMITIES: No pedal edema.Wound C/D/I Assessment/Plan: 1. Hip fracture: PT/OT. WBAT LLE. She will need follow up with Dr. Wiggins. Tramadol/Tylenol. 2. Nausea: Zofran as needed 3. Acute postoperative anemia: Stable. Continue monitoring her CBC. 4. DVT prophylaxis: Lovenox. Continue for 10 days after discharge. 5. Osteoporosis: Eventually, she will restart her monthly Boniva. She thinks she may be on too much Vitamin D? 6. Lyme disease: doxycycline finished. 7. History of stroke: ASA. 8. Spasms: Methocarbamol as needed 9. Advanced directives: full code. Her son is her health care proxy 10/21/17 17:46 10/22/17 17:18
[2017-10-22] MEDS: Senna TAB PO SCH (21:11)
[2017-10-22] MEDS: diPHENhydraMINE PO* 25 MG PO PRN (21:11)
[2017-10-23] MEDS: [UNRECOGNIZED DRUG - OTHER] PO PRN ×2 (02:13→09:28)
[2017-10-23 05:19] VITALS: BP 97/49
[2017-10-23 05:58] LABS: ABS Basophils 0.1 10^3/ul (0-0.2); ABS Eosinophils 0.3 10^3/ul (0-0.6); ABS Lymphocytes 1.8 10^3/ul (1.0-4.8); ABS Monocytes 0.5 10^3/ul (0-0.8); ABS Neutrophils 2.8 10^3/ul (1.5-7.7); ABS Nucleated RBC 0 10^3/ul; Eosinophil % 5.3 % (0-6); Hematocrit 27 % (35-47); Hemoglobin 9.1 g/dl (12.0-16.0); Lymphocyte % 32.3 % (25-47); Mean Corpuscular HGB Conc 33 g/dl (31-36); Mean Corpuscular Hemoglobin 32 pg (27-31); Mean Corpuscular Volume 95 fL (80-97); Mean Platelet Volume 9.3 um3 (7.4-10.4); Nucleated Red Blood Cells % 0.1; Platelet Count 342 10^3/ul (150-450); Red Blood Count 2.89 10^6/ul (4.00-5.40); Red Cell Distribution Width 16 % (10.5-15); White Blood Count 5.5 10^3/ul (3.5-10.8)
[2017-10-23 06:08] LABS: EGFR Non-African American 87.3 (>60)
[2017-10-23] MEDS: Polyethylene Glycol 3350* 17 GM PACKET PO SCH (08:39)
[2017-10-23] MEDS: Acetaminophen TAB* 325 MG PO SCH (08:39)
[2017-10-23] MEDS: Docusate CAP* 100 MG PO SCH (08:40)
[2017-10-23] MEDS: Cholecalciferol TAB* 1000 UNITS PO SCH (08:40)
[2017-10-23] MEDS: Aspirin EC TAB* 81 MG TAB.EC PO SCH (08:40)
[2017-10-23] MEDS: Methocarbamol TAB* 500 MG PO PRN (08:44)
[2017-10-23] MEDS: Artificial Tears* 15 ML BTL BOTH EYES PRN (09:28)
--- NOTE | 2017-10-23 10:51 | PN ---
Progress Note - Progress Note Date of Service: 10/23/17 SOAP: Subjective: []Patient seen for staple removal, 14 days SP ORIF L hip. She feels well and will be discharged home today Objective: []General: Well appearing, NAD LLE: Able to sit to stand/ stand to sit with walker for support without difficulty. Incisions CDI without surrounding erythema. [place] removed, steri strips placed. Thigh soft, calf supple and nontender. Assessment: []82-year-old woman status post left hip fracture and open reduction internal fixation. Plan: []WBAT. May shower, allow steri strips to fall off on their own, do not remove. F/U Dr Wiggins next week. DC home today from PMRU
[2017-10-23] MEDS: Enoxaparin(*) 30 MG/0.3 ML SYR SUBCUT SCH (12:49)
[2017-10-23] MEDS: Acetaminophen TAB* 325 MG PO PRN (12:49)
--- NOTE | 2017-10-24 05:21 | DS ---
CC: Liz Rollins MD * DISCHARGE SUMMARY: DATE OF ADMISSION: 10/11/17 DATE OF DISCHARGE: 10/23/17 DISCHARGE DIAGNOSES: 1. Left hip fracture. 2. Lyme disease. 3. Osteoporosis. 4. Acute postop anemia. 5. Status post hysterectomy and bladder sling, remote. HISTORY OF ILLNESS AND HOSPITAL COURSE: For complete history of the events leading up to her rehab stay, please see the history and physical dictated by Dr. Arabella Glover on 10/11/17. While on the rehab unit, the patient completed her 28-day treatment of doxycycline for Lyme disease. The patient was maintained on an aspirin a day for her history of an old stroke. She had a lot of difficulty with muscle spasms in her left leg and was treated with Robaxin for this. The patient was maintained on Lovenox for DVT prophylaxis. Her wound healed well and her montse were able to be removed prior to discharge. The patient was otherwise medically stable. The patient was seen by Physical Therapy and Occupational Therapy and made good gains with both disciplines. With physical therapy at the time of admission, the patient required minimal amount of assistance to do a transfer. She could ambulate 5 feet with minimum amount of assistance. With occupational therapy at the time of admission, the patient was max assist for lower body dressing, supervision for upper body dressing, mod assist for toileting, mod assist for toilet transfers. By the time of discharge, she was independent in toileting, independent in toilet transfers, independent in her activities of daily living, independent in transfers, and independent ambulating over 300 feet. The patient was discharged home on 10/23/17. DISCHARGE DIET: Regular. DISCHARGE MEDICATIONS: 1. Aspirin 81 mg daily. 2. Vitamin D 1000 units daily. 3. Lovenox 30 mg once a day. 4. Robaxin 750 mg every 6 hours as needed. 5. Tramadol 50 mg every 6 hours as needed. SERVICES AFTER DISCHARGE: Through visiting nurse service. The patient will have home physical therapy and a home health aide. Follow up with Dr. Cindy Wiggins in 1 to 2 weeks. She will also follow up with her primary care doctor, Dr. Liz Rollins. [id number]/[facility] #: [id number] MTDD
== END 2017-10-23 13:20 | disposition home health service (06) | DRG 560 ==
LOC: PMRU 12:19 → UNDOADMIN 13:05 → PMRU 10-13 18:45
PROVIDERS: ADMIT Physical Medicine & Rehabilitation; ATTEND Physical Medicine & Rehabilitation
PROC: F07Z5ZZ Bed Mobility Treatment (ICD-10-PCS; principal; 2017-10-11)
PROC: F07Z9ZZ Gait Training/Functional Ambulation Treatment (ICD-10-PCS; 2017-10-11)
PROC: F07Z8ZZ Transfer Training Treatment (ICD-10-PCS; 2017-10-11)
PROC: F08Z0ZZ Bathing/Showering Techniques Treatment (ICD-10-PCS; 2017-10-11)
PROC: F08Z1ZZ Dressing Techniques Treatment (ICD-10-PCS; 2017-10-11)
PROC: F08Z3ZZ Feeding/Eating Treatment (ICD-10-PCS; 2017-10-11)
DX: S72.102D Unspecified trochanteric fracture of left femur, subsequent encounter for closed fracture with routine healing (principal); A69.20 Lyme disease, unspecified; D62 Acute posthemorrhagic anemia; W18.09XD Striking against other object with subsequent fall, subsequent encounter; M81.0 Age-related osteoporosis without current pathological fracture; Z86.73 Personal history of transient ischemic attack (TIA), and cerebral infarction without residual deficits; M19.042 Primary osteoarthritis, left hand; M19.041 Primary osteoarthritis, right hand; Z96.653 Presence of artificial knee joint, bilateral; E55.9 Vitamin D deficiency, unspecified; G25.81 Restless legs syndrome; D69.6 Thrombocytopenia, unspecified; I83.90 Asymptomatic varicose veins of unspecified lower extremity; M62.838 Other muscle spasm; Z79.1 Long term (current) use of non-steroidal anti-inflammatories (NSAID); Z79.82 Long term (current) use of aspirin; Z79.899 Other long term (current) drug therapy; Z88.5 Allergy status to narcotic agent; Z88.2 Allergy status to sulfonamides; Z88.8 Allergy status to other drugs, medicaments and biological substances; Z82.49 Family history of ischemic heart disease and other diseases of the circulatory system; Z82.61 Family history of arthritis; Z87.891 Personal history of nicotine dependence
CPT/HCPCS: 36415; 80053; 85025; A9270-GY; J1650; J2405

== ENCOUNTER 2022-03-03 03:17 | Observation (INO) ==
[2022-03-03 07:00] LABS: ABS Basophils 0.1 10^3/ul (0-0.2); ABS Lymphocytes 1.3 10^3/ul (1.0-4.8); ABS Neutrophils 4.7 10^3/ul (1.5-7.7); Eosinophil % 0.4 %; Hematocrit 35 % (35-47); Hemoglobin 11.3 g/dL (12.0-16.0); Lymphocyte % 18.2 %; Mean Corpuscular HGB Conc 32 g/dL (31-36); Mean Corpuscular Hemoglobin 30 pg (27-31); Mean Corpuscular Volume 94 fL (80-97); Mean Platelet Volume 9.6 fL (7.4-10.4); Platelet Count 194 10^3/uL (150-450); Red Blood Count 3.75 10^6 /uL (3.70-4.87); Red Cell Distribution Width 14 % (10-15); White Blood Count 7.1 10^3/uL (3.5-10.8)
[2022-03-03 08:15] LABS: Albumin 3.7 g/dL (3.2-5.2); Albumin/Globulin Ratio 1.4 (1-3); C Reactive Protein 14.96 mg/L (<8.01); Calcium 9.5 mg/dL (8.6-10.3); Globulin 2.7 g/dL (2-4); Total Bilirubin 0.7 mg/dL (0.2-1.0); Total Protein 6.4 g/dL (6.4-8.9); eGFR CKD-EPI 85.4 (>60)
[2022-03-03] MEDS ORDERED: Morphine 4 MG/ML VIAL (1 ml) IV ONE ×2 (09:43→16:55)
[2022-03-03] MEDS ORDERED: Lactated Ringers 1000 ml BAG 1,000 ML IV ONE (10:35)
[2022-03-03 10:41] LABS: Erythrocyte Sed Rate 15 mm/Hr (0-29)
[2022-03-03] MEDS ORDERED: oxyCODONE/Acetamin 5/325 mg TAB PO ONE (12:22)
[2022-03-03] MEDS ORDERED: Magnesium Hydroxide LIQ 30 ML UDC PO PRN (18:06)
[2022-03-03] MEDS ORDERED: Ondansetron 4 mg VIAL 2 MG/ML 2 ml VIAL IV PRN (18:06)
[2022-03-03] MEDS ORDERED: Morphine 4 MG/ML VIAL (1 ml) IV PRN ×2 (18:16→18:19)
[2022-03-03] MEDS: Enoxaparin 40 MG/0.4 ML SYR SUBCUT SCH (21:11)
[2022-03-04 07:06] LABS: ABS Lymphocytes 1.3 10^3/ul (1.0-4.8); ABS Monocytes 0.8 10^3/ul (0-0.8); ABS Neutrophils 5.2 10^3/ul (1.5-7.7); Eosinophil % 0.6 %; Hematocrit 35 % (35-47); Hemoglobin 11.5 g/dL (12.0-16.0); Lymphocyte % 17.6 %; Mean Corpuscular HGB Conc 33 g/dL (31-36); Mean Corpuscular Hemoglobin 31 pg (27-31); Mean Corpuscular Volume 94 fL (80-97); Mean Platelet Volume 10.2 fL (7.4-10.4); Platelet Count 176 10^3/uL (150-450); Red Blood Count 3.73 10^6 /uL (3.70-4.87); Red Cell Distribution Width 14 % (10-15); White Blood Count 7.4 10^3/uL (3.5-10.8)
[2022-03-04 07:22] LABS: C Reactive Protein 123.85 mg/L (<8.01); Calcium 9.2 mg/dL (8.6-10.3); Potassium 4.1 mmol/L (3.5-5.0)
[2022-03-04] MEDS: Cholecalciferol (VIT D3) 1,000 unit TAB PO SCH ×2 (08:37→14:55)
[2022-03-04] MEDS ORDERED: Polyethylene Glycol 3350 17 GM PACKET PO PRN (10:38)
[2022-03-04] MEDS ORDERED: Senna TAB 8.6 mg TAB PO PRN (10:38)
[2022-03-04] MEDS ORDERED: Magnesium Hydroxide LIQ 30 ML UDC PO PRN (10:38)
[2022-03-04 12:39] LABS: Body Fluid WBC 49062 /mcL
[2022-03-04 13:15] LABS: Body Fluid Mono 10 %; Body Fluid Total Cells Counted 200
[2022-03-04 13:21] LABS: Body Fluid Appearance Cloudy; Body Fluid Color Yellow; Body Fluid Source Synovial Fluid
[2022-03-04] MEDS: Aspirin EC 81 mg TAB.EC (enteric coated) PO SCH (14:52)
[2022-03-04] MEDS: ceFAZolin 1 GM ADVAN 1 GM in NS 0.9% 50 ML 50 ML IVPB SCH ×2 (14:52→20:11)
[2022-03-04] MEDS: Magnesium Hydroxide LIQ 30 ML UDC PO SCH (21:23)
[2022-03-04] MEDS: Enoxaparin 40 MG/0.4 ML SYR SUBCUT SCH (21:23)
[2022-03-05] MEDS: ceFAZolin 1 GM ADVAN 1 GM in NS 0.9% 50 ML 50 ML IVPB SCH ×2 (04:13→11:43)
[2022-03-05 07:16] LABS: ABS Eosinophils 0.1 10^3/ul (0-0.6); ABS Lymphocytes 1.4 10^3/ul (1.0-4.8); ABS Monocytes 0.8 10^3/ul (0-0.8); ABS Neutrophils 4.2 10^3/ul (1.5-7.7); Eosinophil % 1.3 %; Hematocrit 33 % (35-47); Lymphocyte % 21.5 %; Mean Corpuscular HGB Conc 33 g/dL (31-36); Mean Corpuscular Hemoglobin 31 pg (27-31); Mean Corpuscular Volume 93 fL (80-97); Mean Platelet Volume 10.7 fL (7.4-10.4); Nucleated Red Blood Cells % 0.1; Platelet Count 170 10^3/uL (150-450); Red Blood Count 3.58 10^6 /uL (3.70-4.87); Red Cell Distribution Width 14 % (10-15); White Blood Count 6.4 10^3/uL (3.5-10.8)
[2022-03-05 07:22] LABS: C Reactive Protein 119.36 mg/L (<8.01); Calcium 8.9 mg/dL (8.6-10.3); Potassium 4.2 mmol/L (3.5-5.0); eGFR CKD-EPI 84.8 (>60)
[2022-03-05] MEDS: Cholecalciferol (VIT D3) 1,000 unit TAB PO SCH (08:45)
[2022-03-05] MEDS: Aspirin EC 81 mg TAB.EC (enteric coated) PO SCH (08:45)
[2022-03-05] MEDS: Magnesium Hydroxide LIQ 30 ML UDC PO SCH (08:45)
[2022-03-05 08:53] LABS: Urine Appearance Cloudy; Urine Bilirubin Negative (Negative); Urine Blood Trace (Intact) (Negative); Urine Color Yellow; Urine Glucose Negative (Negative); Urine Ketones 4+ (>=160mg/dL) (Negative); Urine Nitrite Negative (Negative); Urine Protein Negative (Negative); Urine Urobilinogen 0.2 (Negative) (Negative); Urine pH 5.5 (5.0-9.0)
[2022-03-05 09:28] LABS: Urine Bacteria Absent (Absent); Urine Red Blood Cell 2+(6-10/hpf) (Absent); Urine Squamous Epithelial Cell Present (Absent); Urine White Blood Cell 3+(>20/hpf) (Absent)
[2022-03-05 10:36] LABS: Urine Appearance Slightly Cloudy; Urine Bilirubin Negative (Negative); Urine Color Yellow; Urine Glucose Negative (Negative); Urine Ketones 4+ (>=160mg/dL) (Negative)
[2022-03-05 10:37] LABS: Urine Blood Negative (Negative); Urine Nitrite Negative (Negative); Urine Protein Negative (Negative); Urine Urobilinogen 0.2 (Negative) (Negative); Urine pH 5.5 (5.0-9.0)
[2022-03-05 10:54] LABS: Urine Bacteria Absent (Absent); Urine Red Blood Cell 1+(3-5/hpf) (Absent); Urine Squamous Epithelial Cell Present (Absent); Urine White Blood Cell 3+(>20/hpf) (Absent)
[2022-03-05 11:58] VITALS: BP 129/73
[2022-03-07 16:51] LABS: Anaplasma phagocytophilum Negative (Negative); B. miyamotoi PCR, B Negative (Negative); Babesia divergens/MO-1 Negative (Negative); Babesia ducani Negative (Negative); Ehrlichia chaffeensis Negative (Negative); Ehrlichia ewingii/canis Negative (Negative); Ehrlichia muris eauclairensis Negative (Negative)
[2022-03-07 16:59] LABS: IgG Immunoblot Positive (Negative); IgM Immunoblot Positive (Negative)
[2022-03-08 22:23] LABS: B. burgdorferi PCR Negative (Negative); B. garinii/B. afzellii PCR Negative (Negative)
== END 2022-03-05 13:30 | disposition home or self-care (01) ==
LOC: ED 03:17 → EDHOLD 03:17 → MCHPEDS 03-04 00:05
PROVIDERS: ADMIT Student in an Organized Health Care Education/Training Program; ATTEND Internal Medicine

== ENCOUNTER 2023-08-12 17:05 | Inpatient (IN) ==
[2023-08-12 18:35] LABS: ABS Basophils 0.1 10^3/uL (0.0-0.1); ABS Lymphocytes 1.5 10^3/uL (1.0-4.8); ABS Monocytes 0.7 10^3/uL (0.0-0.9); ABS Neutrophils 7.3 10^3/uL (1.5-7.6); Eosinophil % 0.4 %; Hematocrit 36.1 % (35-45); Hemoglobin 11.9 g/dL (11.5-14.3); Lymphocyte % 15.9 %; Mean Corpuscular Hemoglobin 30.7 pg (27-33); Mean Corpuscular Hgb Conc 33.1 g/dL (31-36); Mean Corpuscular Volume 92.6 fL (80-97); Mean Platelet Volume 9.3 fL (7.5-11.2); Platelet Count 300 10^3/uL (150-450); Red Cell Distribution Width 13.7 % (12-17); White Blood Count 9.7 10^3/uL (3.8-11.8)
[2023-08-12 19:08] LABS: Albumin 4.2 g/dL (3.2-5.2); Albumin/Globulin Ratio 1.1 (1-3); C Reactive Protein 24.54 mg/L (<8.01); Calcium 9.9 mg/dL (8.6-10.3); Creatinine, Serum 0.87 mg/dL (0.51-0.95); Globulin 3.7 g/dL (2-4); Potassium 4.4 mmol/L (3.5-5.0); Total Bilirubin 0.5 mg/dL (0.2-1.0); Total Protein 7.9 g/dL (6.4-8.9); eGFR CKD-EPI 64.4 (>60)
[2023-08-12] MEDS: Morphine 4 MG/ML VIAL (1 ml) IV ONE (20:52)
[2023-08-13 00:25] LABS: Urine Appearance Clear; Urine Bilirubin Negative (Negative); Urine Blood Negative (Negative); Urine Color Light-Yellow; Urine Glucose Negative (Negative); Urine Ketones 1+ (Negative); Urine Nitrite Negative (Negative); Urine Protein Negative (Negative); Urine Urobilinogen Negative (Negative); Urine pH 6.5 (5.0-8.0)
[2023-08-13 00:28] LABS: Urine Bacteria Absent /HPF (Absent); Urine Red Blood Cell Trace(0-2/hpf) /HPF (0-Trace); Urine Squamous Epithelial Cell Present /HPF (Absent); Urine White Blood Cell Trace(0-5/hpf) /HPF (0-Trace)
[2023-08-13] MEDS: Morphine 2 MG/ML SYRINGE IV PRN ×2 (02:52→12:56)
[2023-08-13 08:51] LABS: ABS Basophils 0.1 10^3/uL (0.0-0.1); ABS Lymphocytes 1.6 10^3/uL (1.0-4.8); ABS Neutrophils 5.4 10^3/uL (1.5-7.6); ABS Nucleated RBC 0.01 10^3/ul; Eosinophil % 0.6 %; Hematocrit 33.5 % (35-45); Hemoglobin 11.1 g/dL (11.5-14.3); Lymphocyte % 20.1 %; Mean Corpuscular Hemoglobin 30.7 pg (27-33); Mean Corpuscular Hgb Conc 33.1 g/dL (31-36); Mean Corpuscular Volume 92.7 fL (80-97); Mean Platelet Volume 9.1 fL (7.5-11.2); Nucleated Red Blood Cells % 0.1 %/100WBC (0.0-0.8); Platelet Count 277 10^3/uL (150-450); Red Blood Count 3.62 10^6/uL (3.63-4.92); Red Cell Distribution Width 13.8 % (12-17); White Blood Count 8.1 10^3/uL (3.8-11.8)
[2023-08-13 08:56] LABS: INR 1.12 (0.83-1.13)
[2023-08-13 09:34] LABS: Calcium 9.3 mg/dL (8.6-10.3); Creatinine, Serum 0.73 mg/dL (0.51-0.95); Potassium 4.5 mmol/L (3.5-5.0); eGFR CKD-EPI 79.5 (>60)
[2023-08-13 12:33] LABS: Creatinine, Serum 0.73 mg/dL (0.51-0.95); eGFR CKD-EPI 79.5 (>60)
[2023-08-13] MEDS: Heparin 5000 UNITS/ML 1 mL VIAL IV PRN (12:40)
[2023-08-13] MEDS: Heparin DRIP 25,000 UNITS BAG 25,000 UNITS/250 ML BAG IV SCH (12:41)
[2023-08-13 18:01] LABS: Urine Appearance Clear; Urine Bilirubin Negative (Negative); Urine Blood Negative (Negative); Urine Color Yellow; Urine Glucose Negative (Negative); Urine Ketones 1+ (Negative); Urine Nitrite Negative (Negative); Urine Protein Trace (Negative); Urine Specific Gravity 1.024 (1.002-1.030); Urine Urobilinogen Negative (Negative); Urine pH 6.5 (5.0-8.0)
[2023-08-14] MEDS ORDERED: Ondansetron 4 mg VIAL 2 MG/ML 2 ml VIAL IV PRN (10:10)
[2023-08-14] MEDS ORDERED: Naloxone 0.4 mg VIAL 0.4 mg/ml 1 ml VIAL IV PRN (10:10)
[2023-08-15] MEDS: Magnesium Sulfate 2 gm BAG 2 GM/50 ML BAG IVPB ONE (06:00)
[2023-08-15 08:30] LABS: Calcium 8.9 mg/dL (8.6-10.3); Creatinine, Serum 0.69 mg/dL (0.51-0.95); Potassium 4.2 mmol/L (3.5-5.0); eGFR CKD-EPI 83.9 (>60)
[2023-08-15 08:52] LABS: ABS Eosinophils 0.1 10^3/uL (0.0-0.5); ABS Lymphocytes 2.2 10^3/uL (1.0-4.8); ABS Monocytes 0.8 10^3/uL (0.0-0.9); ABS Neutrophils 3.8 10^3/uL (1.5-7.6); ABS Nucleated RBC 0.01 10^3/ul; Eosinophil % 1.7 %; Hematocrit 33.3 % (35-45); Hemoglobin 10.8 g/dL (11.5-14.3); Lymphocyte % 32.1 %; Mean Corpuscular Hemoglobin 30.9 pg (27-33); Mean Corpuscular Hgb Conc 32.4 g/dL (31-36); Mean Corpuscular Volume 95.1 fL (80-97); Nucleated Red Blood Cells % 0.1 %/100WBC (0.0-0.8); Platelet Count 277 10^3/uL (150-450); Red Cell Distribution Width 14.4 % (12-17)
[2023-08-15] MEDS ORDERED: Lidocaine 2% PF 5 ML VIAL ONE (10:45)
[2023-08-15] MEDS ORDERED: Propofol 10 MG/ML 20 ML BTL ONE (10:45)
[2023-08-15] MEDS ORDERED: fentaNYL 250 mcg/5 ml 50 MCG/ML 5 ml VIAL (250 MCG) ONE (11:19)
[2023-08-15] MEDS ORDERED: KETAMINE HCL 10 MG/ML 20 ml VIAL (200 MG) ONE (11:33)
[2023-08-15] MEDS ORDERED: Clindamycin 900 MG/50 **NS BAG 900 MG/50 ML BAG ONE (12:22)
[2023-08-15] MEDS ORDERED: Tranexamic Acid 1,000 MG/10 ML SDV ONE (13:37)
[2023-08-15] MEDS ORDERED: Ondansetron 4 mg VIAL 2 MG/ML 2 ml VIAL ONE (13:49)
[2023-08-15] MEDS ORDERED: Dexamethasone IV 4 MG/ML VIAL 1 ml VIAL ONE (13:49)
[2023-08-15] MEDS ORDERED: ROPIVACAINE 5 MG/ML 30 ML BTL (0.5%) ONE (13:50)
[2023-08-15] MEDS ORDERED: HYDROmorphone 0.5 MG/0.5 ML SYRINGE ONE (13:51)
[2023-08-15] MEDS ORDERED: Esmolol 10 MG/ML 10 ML (100 mg) IV ONE (14:01)
[2023-08-15] MEDS ORDERED: Rocuronium 50 mg VIAL 10 mg/ml 5 ml VIAL (50 mg) ONE (14:56)
[2023-08-15] MEDS ORDERED: Magnesium Hydroxide LIQ 30 ML UDC PO PRN (15:46)
[2023-08-15] MEDS ORDERED: Ondansetron ODT 4 mg TAB 4 MG TAB PO PRN (15:46)
[2023-08-15] MEDS ORDERED: Ondansetron 4 mg VIAL 2 MG/ML 2 ml VIAL IV PRN (15:46)
[2023-08-15] MEDS ORDERED: fentaNYL 100 mcg/2 ml 50 MCG/ML VIAL ONE (16:31)
[2023-08-15] MEDS: fentaNYL 100 mcg/2 ml 50 MCG/ML VIAL IV PRN (16:33)
[2023-08-15] MEDS: Lactated Ringers 1000 ml BAG 1,000 ML IV SCH ×2 (18:50→20:50)
[2023-08-15] MEDS: Buffered Lidocaine 1% SYRIN 1 ml INTRADERM ONE (20:49)
[2023-08-15] MEDS: Magnesium Hydroxide LIQ 30 ML UDC PO SCH (21:41)
[2023-08-15] MEDS: Clindamycin 600 MG/D5W BAG 600 MG/50 ML BAG IV SCH (22:22)
[2023-08-16 05:35] LABS: ABS Basophils 0.1 10^3/uL (0.0-0.1); ABS Lymphocytes 0.7 10^3/uL (1.0-4.8); ABS Monocytes 0.6 10^3/uL (0.0-0.9); ABS Neutrophils 5.6 10^3/uL (1.5-7.6); Hematocrit 28.9 % (35-45); Hemoglobin 9.6 g/dL (11.5-14.3); Lymphocyte % 10.3 %; Mean Corpuscular Hemoglobin 30.9 pg (27-33); Mean Corpuscular Hgb Conc 33.3 g/dL (31-36); Mean Corpuscular Volume 92.8 fL (80-97); Mean Platelet Volume 9.9 fL (7.5-11.2); Platelet Count 287 10^3/uL (150-450); Red Blood Count 3.11 10^6/uL (3.63-4.92); Red Cell Distribution Width 13.8 % (12-17)
[2023-08-16 06:05] LABS: Calcium 8.5 mg/dL (8.6-10.3); Creatinine, Serum 0.75 mg/dL (0.51-0.95)
[2023-08-16] MEDS: Vitamin THERAPEUTIC TAB PO SCH (07:30)
[2023-08-17 05:10] LABS: Hematocrit 27.7 % (35-45); Hemoglobin 9.2 g/dL (11.5-14.3); Mean Platelet Volume 9.3 fL (7.5-11.2); Platelet Count 292 10^3/uL (150-450)
[2023-08-18 05:59] LABS: ABS Basophils 0.1 10^3/uL (0.0-0.1); ABS Eosinophils 0.2 10^3/uL (0.0-0.5); ABS Lymphocytes 1.4 10^3/uL (1.0-4.8); ABS Monocytes 0.7 10^3/uL (0.0-0.9); ABS Neutrophils 4.1 10^3/uL (1.5-7.6); Eosinophil % 3.5 %; Hematocrit 26.6 % (35-45); Hemoglobin 8.9 g/dL (11.5-14.3); Lymphocyte % 21.6 %; Mean Corpuscular Hemoglobin 30.9 pg (27-33); Mean Corpuscular Hgb Conc 33.3 g/dL (31-36); Mean Corpuscular Volume 92.8 fL (80-97); Mean Platelet Volume 9.4 fL (7.5-11.2); Platelet Count 293 10^3/uL (150-450); Red Blood Count 2.87 10^6/uL (3.63-4.92); Red Cell Distribution Width 13.8 % (12-17); White Blood Count 6.5 10^3/uL (3.8-11.8)
[2023-08-18 06:16] LABS: Albumin 2.9 g/dL (3.2-5.2); Albumin/Globulin Ratio 1.1 (1-3); Calcium 8.6 mg/dL (8.6-10.3); Creatinine, Serum 0.81 mg/dL (0.51-0.95); Globulin 2.6 g/dL (2-4); Potassium 4.8 mmol/L (3.5-5.0); Total Bilirubin 0.4 mg/dL (0.2-1.0); Total Protein 5.5 g/dL (6.4-8.9); eGFR CKD-EPI 70.2 (>60)
[2023-08-18] MEDS: Lactulose 30 ml UDC PO PRN (08:51)
[2023-08-19 06:09] LABS: Hematocrit 26.3 % (35-45); Hemoglobin 8.9 g/dL (11.5-14.3); Mean Platelet Volume 8.8 fL (7.5-11.2); Platelet Count 336 10^3/uL (150-450)
[2023-08-19] MEDS: Lidocaine PATCH 5% PATCH TRANSDERM SCH (12:48)
[2023-08-20 05:49] LABS: Hematocrit 27.2 % (35-45); Hemoglobin 9.1 g/dL (11.5-14.3); Platelet Count 386 10^3/uL (150-450)
[2023-08-20 10:07] VITALS: BP 110/65
== END 2023-08-20 11:05 | DRG 522 ==
LOC: ED 17:05 → EDHOLD 22:45 → SUATTDRO 22:45 → MEDTELE 08-13 00:03 → SSU 08-15 18:03
PROVIDERS: ADMIT Student in an Organized Health Care Education/Training Program; ATTEND Internal Medicine

== ENCOUNTER 2023-08-20 10:45 | Inpatient (IN) ==
[2023-08-21 06:56] LABS: ABS Basophils 0.1 10^3/uL (0.0-0.1); ABS Eosinophils 0.4 10^3/uL (0.0-0.5); ABS Lymphocytes 1.4 10^3/uL (1.0-4.8); ABS Monocytes 0.7 10^3/uL (0.0-0.9); ABS Neutrophils 2.9 10^3/uL (1.5-7.6); Eosinophil % 6.9 %; Hematocrit 25.8 % (35-45); Hemoglobin 8.8 g/dL (11.5-14.3); Mean Corpuscular Hemoglobin 31.1 pg (27-33); Mean Corpuscular Hgb Conc 34.2 g/dL (31-36); Mean Corpuscular Volume 91.1 fL (80-97); Mean Platelet Volume 8.5 fL (7.5-11.2); Nucleated Red Blood Cells % 0.1 %/100WBC (0.0-0.8); Platelet Count 380 10^3/uL (150-450); Red Blood Count 2.84 10^6/uL (3.63-4.92); Red Cell Distribution Width 13.4 % (12-17); White Blood Count 5.5 10^3/uL (3.8-11.8)
[2023-08-21 07:34] LABS: Albumin 2.7 g/dL (3.2-5.2); Calcium 8.4 mg/dL (8.6-10.3); Creatinine, Serum 0.76 mg/dL (0.51-0.95); Globulin 2.8 g/dL (2-4); Potassium 4.1 mmol/L (3.5-5.0); Total Bilirubin 0.4 mg/dL (0.2-1.0); Total Protein 5.5 g/dL (6.4-8.9); eGFR CKD-EPI 75.8 (>60)
[2023-08-21] MEDS: Vitamin THERAPEUTIC TAB PO SCH (08:52)
[2023-08-21] MEDS: Senna TAB 8.6 mg TAB PO PRN (20:51)
[2023-08-22] MEDS: Magnesium Hydroxide LIQ 30 ML UDC PO PRN (08:40)
[2023-08-24] MEDS: Polyethylene Glycol 3350 17 GM PACKET PO SCH (11:00)
[2023-08-25] MEDS ORDERED: Polyethylene Glycol 3350 17 GM PACKET PO PRN (09:18)
[2023-08-27 17:24] LABS: Urine Appearance Turbid; Urine Bilirubin Negative (Negative); Urine Blood Negative (Negative); Urine Color Colorless; Urine Glucose Negative (Negative); Urine Ketones Negative (Negative); Urine Nitrite Negative (Negative); Urine Protein Negative (Negative); Urine Specific Gravity 1.003 (1.002-1.030); Urine Urobilinogen Negative (Negative); Urine pH 6.5 (5.0-8.0)
[2023-08-27 17:29] LABS: Urine Bacteria 2+ /HPF (Absent); Urine Red Blood Cell 2+(6-10/hpf) /HPF (0-Trace); Urine Squamous Epithelial Cell Present /HPF (Absent); Urine White Blood Cell 3+(>20/hpf) /HPF (0-Trace)
[2023-08-27] MEDS: Nystatin TOP POWDER 15 GM BTL TOPICAL SCH (20:00)
[2023-08-28 06:45] LABS: ABS Basophils 0.1 10^3/uL (0.0-0.1); ABS Eosinophils 0.3 10^3/uL (0.0-0.5); ABS Lymphocytes 1.8 10^3/uL (1.0-4.8); ABS Monocytes 0.7 10^3/uL (0.0-0.9); ABS Neutrophils 4.4 10^3/uL (1.5-7.6); Eosinophil % 4.8 %; Hematocrit 26.2 % (35-45); Hemoglobin 8.8 g/dL (11.5-14.3); Mean Corpuscular Hemoglobin 30.7 pg (27-33); Mean Corpuscular Hgb Conc 33.7 g/dL (31-36); Mean Corpuscular Volume 91.1 fL (80-97); Mean Platelet Volume 8.6 fL (7.5-11.2); Platelet Count 492 10^3/uL (150-450); Red Blood Count 2.88 10^6/uL (3.63-4.92); Red Cell Distribution Width 13.9 % (12-17); White Blood Count 7.3 10^3/uL (3.8-11.8)
[2023-08-28 06:59] LABS: Albumin 3.1 g/dL (3.2-5.2); Albumin/Globulin Ratio 1.1 (1-3); Calcium 9.2 mg/dL (8.6-10.3); Creatinine, Serum 0.61 mg/dL (0.51-0.95); Globulin 2.9 g/dL (2-4); Potassium 4.4 mmol/L (3.5-5.0); Total Bilirubin 0.3 mg/dL (0.2-1.0); eGFR CKD-EPI 85.9 (>60)
[2023-08-29] MEDS: Nitrofurantoin (macrocrystals) 50 mg CAP PO SCH (14:11)
[2023-08-30 04:11] VITALS: BP 117/68
== END 2023-08-30 13:50 | disposition home or self-care (01) | DRG 560 ==
LOC: PMRU 12:47
PROVIDERS: ADMIT Physical Medicine & Rehabilitation; ATTEND Physical Medicine & Rehabilitation

== ENCOUNTER 2023-09-06 11:20 | Inpatient (IN) ==
[2023-09-06] MEDS ORDERED: Lactulose 30 ml UDC PO PRN (11:24)
[2023-09-06] MEDS ORDERED: Magnesium Hydroxide LIQ 30 ML UDC PO PRN (11:24)
[2023-09-06] MEDS ORDERED: Ondansetron 4 mg VIAL 2 MG/ML 2 ml VIAL IV PRN ×2 (11:24→19:41)
[2023-09-06] MEDS ORDERED: Ondansetron ODT 4 mg TAB 4 MG TAB PO PRN (11:24)
[2023-09-06] MEDS ORDERED: Morphine 2 MG/ML SYRINGE IV PRN (11:24)
[2023-09-06] MEDS ORDERED: Calcium Carb (TUMS) 500 mg CHEW TAB PO PRN (11:24)
[2023-09-06 12:35] LABS: ABS Basophils 0.1 10^3/uL (0.0-0.1); ABS Eosinophils 0.1 10^3/uL (0.0-0.5); ABS Lymphocytes 1.7 10^3/uL (1.0-4.8); ABS Monocytes 0.6 10^3/uL (0.0-0.9); ABS Neutrophils 4.4 10^3/uL (1.5-7.6); Eosinophil % 1.9 %; Hematocrit 32.1 % (35-45); Hemoglobin 10.7 g/dL (11.5-14.3); Lymphocyte % 24.5 %; Mean Corpuscular Hemoglobin 30.5 pg (27-33); Mean Corpuscular Hgb Conc 33.3 g/dL (31-36); Mean Corpuscular Volume 91.6 fL (80-97); Mean Platelet Volume 9.1 fL (7.5-11.2); Platelet Count 440 10^3/uL (150-450); Red Cell Distribution Width 14.3 % (12-17); White Blood Count 6.8 10^3/uL (3.8-11.8)
[2023-09-06 12:52] LABS: Albumin 3.9 g/dL (3.2-5.2); Albumin/Globulin Ratio 1.1 (1-3); C Reactive Protein 22.81 mg/L (<8.01); Calcium 9.9 mg/dL (8.6-10.3); Creatinine, Serum 0.75 mg/dL (0.51-0.95); Globulin 3.7 g/dL (2-4); Potassium 4.1 mmol/L (3.5-5.0); Total Bilirubin 0.4 mg/dL (0.2-1.0); Total Protein 7.6 g/dL (6.4-8.9); eGFR CKD-EPI 76.5 (>60)
[2023-09-06 12:54] LABS: Activated Partial Thrombo Time 36.5 seconds (26.0-38.0); INR 1.53 (0.83-1.13)
[2023-09-06 13:32] LABS: Urine Appearance Clear; Urine Bilirubin Negative (Negative); Urine Blood Negative (Negative); Urine Color Light-Yellow; Urine Glucose Negative (Negative); Urine Ketones Negative (Negative); Urine Nitrite Negative (Negative); Urine Protein Negative (Negative); Urine Specific Gravity 1.012 (1.002-1.030); Urine Urobilinogen Negative (Negative)
[2023-09-06 13:34] LABS: Urine Bacteria Absent /HPF (Absent); Urine Red Blood Cell Trace(0-2/hpf) /HPF (0-Trace); Urine Squamous Epithelial Cell Present /HPF (Absent); Urine White Blood Cell 2+(11-20/hpf) /HPF (0-Trace)
[2023-09-06 14:10] LABS: Erythrocyte Sed Rate 54 mm/Hr (0-29)
[2023-09-06] MEDS ORDERED: Rocuronium 50 mg VIAL 10 mg/ml 5 ml VIAL (50 mg) ONE (17:36)
[2023-09-06] MEDS ORDERED: Lidocaine 2% PF 5 ML VIAL ONE (17:37)
[2023-09-06] MEDS ORDERED: fentaNYL 100 mcg/2 ml 50 MCG/ML VIAL ONE ×3 (17:37→20:05)
[2023-09-06] MEDS ORDERED: Propofol 10 MG/ML 20 ML BTL ONE (17:37)
[2023-09-06] MEDS ORDERED: Phenylephrine IV 10 MG/ML 1 ml VIAL ONE (17:37)
[2023-09-06] MEDS ORDERED: Ondansetron 4 mg VIAL 2 MG/ML 2 ml VIAL ONE (17:37)
[2023-09-06] MEDS ORDERED: ROPIVACAINE 5 MG/ML 30 ML BTL (0.5%) ONE (17:48)
[2023-09-06] MEDS ORDERED: fentaNYL 100 mcg/2 ml 50 MCG/ML VIAL IV PRN (19:41)
[2023-09-06] MEDS ORDERED: Naloxone 0.4 mg VIAL 0.4 mg/ml 1 ml VIAL IV PRN (19:41)
[2023-09-06] MEDS ORDERED: Acetaminophen IV 1 GM/100ML 1,000 MG/100 ML BAG IV PRN (19:41)
[2023-09-06] MEDS ORDERED: Zosyn per Pharmacy NOTE FOLLOW UP SCH (20:00)
[2023-09-06] MEDS ORDERED: Vancomycin per Pharmacy 1 EA NOTE FOLLOW UP SCH (20:00)
[2023-09-06] MEDS ORDERED: Acetaminophen IV 1 GM/100ML 1,000 MG/100 ML BAG IV ONE (20:05)
[2023-09-06] MEDS ORDERED: HYDROmorphone 1 MG/1 ML SYRINGE ONE (20:30)
[2023-09-06] MEDS: HYDROmorphone 1 MG/1 ML SYRINGE IV PRN (20:31)
[2023-09-06] MEDS: Lactated Ringers 1000 ml BAG 1,000 ML IV SCH (22:55)
[2023-09-06] MEDS: Magnesium Hydroxide LIQ 30 ML UDC PO SCH (23:08)
[2023-09-07] MEDS: NS 0.9% 1000 ml BAG 1,000 ML IV SCH (00:20)
[2023-09-07] MEDS: ZOSYN 3.375 GM x ONE DOSE over 30 miuntes IV (00:20)
[2023-09-07] MEDS: Vancomycin 1,000 MG ONCE IVPB ONE (00:47)
[2023-09-07] MEDS: Vancomycin 750 MG in NS 0.9% 250 ML IVPB SCH ×2 (00:47→07:28)
[2023-09-07] MEDS ORDERED: ZOSYN 3.375 GM Q8H per EXTENDED INFUSION IV SCH (04:30)
[2023-09-07] MEDS ORDERED: Polyethylene Glycol 3350 17 GM PACKET PO PRN (06:00)
[2023-09-07] MEDS: ZOSYN 3.375 GM Q6H - Intermittant 30 min Infusion IV SCH (06:24)
[2023-09-07 06:37] LABS: ABS Basophils 0.1 10^3/uL (0.0-0.1); ABS Eosinophils 0.1 10^3/uL (0.0-0.5); ABS Lymphocytes 1.9 10^3/uL (1.0-4.8); ABS Monocytes 0.7 10^3/uL (0.0-0.9); ABS Neutrophils 4.6 10^3/uL (1.5-7.6); Eosinophil % 1.9 %; Hematocrit 27.8 % (35-45); Hemoglobin 9.2 g/dL (11.5-14.3); Lymphocyte % 25.9 %; Mean Corpuscular Hemoglobin 30.4 pg (27-33); Mean Corpuscular Hgb Conc 33.2 g/dL (31-36); Mean Corpuscular Volume 91.7 fL (80-97); Mean Platelet Volume 9.3 fL (7.5-11.2); Platelet Count 352 10^3/uL (150-450); Red Blood Count 3.03 10^6/uL (3.63-4.92); Red Cell Distribution Width 14.3 % (12-17); White Blood Count 7.4 10^3/uL (3.8-11.8)
[2023-09-07 06:55] LABS: Albumin 3.2 g/dL (3.2-5.2); Albumin/Globulin Ratio 1.1 (1-3); C Reactive Protein 14.74 mg/L (<8.01); Creatinine, Serum 0.75 mg/dL (0.51-0.95); Globulin 2.9 g/dL (2-4); Potassium 4.1 mmol/L (3.5-5.0); Total Bilirubin 0.4 mg/dL (0.2-1.0); Total Protein 6.1 g/dL (6.4-8.9); eGFR CKD-EPI 76.5 (>60)
[2023-09-07] MEDS: Vitamin THERAPEUTIC TAB PO SCH (08:32)
[2023-09-07] MEDS ORDERED: Aztreonam 1 GM in NS 0.9% 50 ML 50 ML IV SCH (15:00)
[2023-09-07] MEDS: Aztreonam 1 GM in NS 0.9% 50 ML 50 ML IV SCH (17:28)
[2023-09-08 05:36] LABS: ABS Basophils 0.1 10^3/uL (0.0-0.1); ABS Eosinophils 0.2 10^3/uL (0.0-0.5); ABS Lymphocytes 1.8 10^3/uL (1.0-4.8); ABS Monocytes 0.8 10^3/uL (0.0-0.9); ABS Neutrophils 3.7 10^3/uL (1.5-7.6); Eosinophil % 3.4 %; Hematocrit 25.4 % (35-45); Hemoglobin 8.5 g/dL (11.5-14.3); Lymphocyte % 27.5 %; Mean Corpuscular Hemoglobin 30.5 pg (27-33); Mean Corpuscular Hgb Conc 33.3 g/dL (31-36); Mean Corpuscular Volume 91.6 fL (80-97); Mean Platelet Volume 9.1 fL (7.5-11.2); Platelet Count 301 10^3/uL (150-450); Red Blood Count 2.78 10^6/uL (3.63-4.92); Red Cell Distribution Width 14.1 % (12-17); White Blood Count 6.7 10^3/uL (3.8-11.8)
[2023-09-08 06:17] LABS: Albumin 2.9 g/dL (3.2-5.2); Albumin/Globulin Ratio 1.1 (1-3); C Reactive Protein 52.62 mg/L (<8.01); Calcium 8.5 mg/dL (8.6-10.3); Creatinine, Serum 0.56 mg/dL (0.51-0.95); Globulin 2.6 g/dL (2-4); Total Bilirubin 0.4 mg/dL (0.2-1.0); Total Protein 5.5 g/dL (6.4-8.9); Vancomycin Trough 10.2 mcg/mL; eGFR CKD-EPI 87.7 (>60)
[2023-09-08] MEDS: Vancomycin Trough Check NOTE FOLLOW UP ONE (08:16)
[2023-09-09 06:08] LABS: ABS Eosinophils 0.3 10^3/uL (0.0-0.5); ABS Lymphocytes 2.4 10^3/uL (1.0-4.8); ABS Monocytes 0.9 10^3/uL (0.0-0.9); ABS Neutrophils 4.1 10^3/uL (1.5-7.6); Lymphocyte % 31.3 %; Mean Corpuscular Hemoglobin 30.3 pg (27-33); Mean Corpuscular Hgb Conc 33.1 g/dL (31-36); Mean Corpuscular Volume 91.4 fL (80-97); Mean Platelet Volume 9.5 fL (7.5-11.2); Platelet Count 315 10^3/uL (150-450); Red Blood Count 2.96 10^6/uL (3.63-4.92); Red Cell Distribution Width 14.4 % (12-17); White Blood Count 7.7 10^3/uL (3.8-11.8)
[2023-09-09 06:25] LABS: Albumin 2.9 g/dL (3.2-5.2); C Reactive Protein 59.54 mg/L (<8.01); Calcium 8.8 mg/dL (8.6-10.3); Creatinine, Serum 0.51 mg/dL (0.51-0.95); Globulin 2.8 g/dL (2-4); Potassium 4.2 mmol/L (3.5-5.0); Total Bilirubin 0.4 mg/dL (0.2-1.0); Total Protein 5.7 g/dL (6.4-8.9); eGFR CKD-EPI 89.7 (>60)
[2023-09-09 13:49] VITALS: BP 106/57
[2023-09-11] MEDS ORDERED: Vancomycin Trough Check NOTE FOLLOW UP ONE (06:00)
== END 2023-09-09 16:30 | disposition home or self-care (01) | DRG 857 ==
LOC: SSU 11:37
PROVIDERS: ADMIT Orthopaedic Surgery Adult Reconstructive Orthopaedic Surgery; ATTEND Orthopaedic Surgery Adult Reconstructive Orthopaedic Surgery

== ENCOUNTER 2023-09-25 15:10 | Observation (INO) ==
[2023-09-25 16:10] LABS: ABS Basophils 0.1 10^3/uL (0.0-0.1); ABS Eosinophils 0.1 10^3/uL (0.0-0.5); ABS Lymphocytes 2.2 10^3/uL (1.0-4.8); ABS Monocytes 0.8 10^3/uL (0.0-0.9); ABS Neutrophils 3.3 10^3/uL (1.5-7.6); ABS Nucleated RBC 0.01 10^3/ul; Hematocrit 15.9 % (35-45); Hemoglobin 5.4 g/dL (11.5-14.3); Lymphocyte % 33.9 %; Mean Corpuscular Hemoglobin 30.9 pg (27-33); Mean Corpuscular Hgb Conc 34.2 g/dL (31-36); Mean Corpuscular Volume 90.4 fL (80-97); Mean Platelet Volume 7.4 fL (7.5-11.2); Nucleated Red Blood Cells % 0.1 %/100WBC (0.0-0.8); Platelet Count 313 10^3/uL (150-450); Red Blood Count 1.76 10^6/uL (3.63-4.92); Red Cell Distribution Width 14.3 % (12-17); White Blood Count 6.5 10^3/uL (3.8-11.8)
[2023-09-25 16:51] LABS: Albumin 3.6 g/dL (3.2-5.2); Albumin/Globulin Ratio 1.3 (1-3); Calcium 9.2 mg/dL (8.6-10.3); Creatinine, Serum 0.76 mg/dL (0.51-0.95); Globulin 2.8 g/dL (2-4); Potassium 4.3 mmol/L (3.5-5.0); Total Bilirubin 0.2 mg/dL (0.2-1.0); Total Protein 6.4 g/dL (6.4-8.9); eGFR CKD-EPI 75.3 (>60)
[2023-09-25 17:02] LABS: Activated Partial Thrombo Time 18.3 seconds (26.0-38.0); INR 1.04 (0.83-1.13)
[2023-09-25 17:02] LABS: Urine Appearance Clear; Urine Bilirubin Negative (Negative); Urine Blood Negative (Negative); Urine Color Colorless; Urine Glucose Negative (Negative); Urine Ketones Negative (Negative); Urine Nitrite 2+ (Negative); Urine Protein Negative (Negative); Urine Specific Gravity 1.009 (1.002-1.030); Urine Urobilinogen Negative (Negative); Urine pH 5.5 (5.0-8.0)
[2023-09-25 17:08] LABS: Urine Bacteria 1+ /HPF (Absent); Urine Red Blood Cell Trace(0-2/hpf) /HPF (0-Trace); Urine Squamous Epithelial Cell Present /HPF (Absent); Urine White Blood Cell 2+(11-20/hpf) /HPF (0-Trace)
[2023-09-25] MEDS: Pantoprazole VIAL 40 MG VIAL IV SCH (20:03)
[2023-09-25 22:43] LABS: Hematocrit 22.4 % (35-45); Hemoglobin 7.5 g/dL (11.5-14.3)
[2023-09-26] MEDS ORDERED: HYDROcodone/ACETAMIN 5/325 mg TAB PO PRN (07:09)
[2023-09-26 07:39] LABS: Hematocrit 21.8 % (35-45); Hemoglobin 7.5 g/dL (11.5-14.3)
[2023-09-26] MEDS ORDERED: Propofol 10 MG/ML 20 ML BTL ONE (16:21)
[2023-09-27 06:23] LABS: Hemoglobin 7.1 g/dL (11.5-14.3); Mean Corpuscular Hemoglobin 29.9 pg (27-33); Mean Corpuscular Hgb Conc 33.7 g/dL (31-36); Mean Corpuscular Volume 88.7 fL (80-97); Mean Platelet Volume 7.4 fL (7.5-11.2); Platelet Count 306 10^3/uL (150-450); Red Blood Count 2.36 10^6/uL (3.63-4.92); Red Cell Distribution Width 14.3 % (12-17); White Blood Count 6.5 10^3/uL (3.8-11.8)
[2023-09-27 06:57] LABS: Calcium 8.8 mg/dL (8.6-10.3); Creatinine, Serum 0.65 mg/dL (0.51-0.95); Potassium 3.9 mmol/L (3.5-5.0); eGFR CKD-EPI 84.6 (>60)
[2023-09-27 13:54] VITALS: BP 122/60
[2023-09-27 15:05] LABS: Hematocrit 26.9 % (35-45); Hemoglobin 9.1 g/dL (11.5-14.3)
== END 2023-09-27 17:00 | disposition home or self-care (01) ==
LOC: ED 15:10 → EDHOLD 15:10 → SUATTDRO 18:53 → MED 22:55
PROVIDERS: ADMIT Internal Medicine; ATTEND Hospitalist
PROC: O.GIEGD (2023-09-26 15:50)